=== PATIENT | male | born 1950 | race Caucasian/White ===

== ENCOUNTER 2016-08-06 10:48 | Emergency (ER) | payer BC, OTHER ==
[~2016-08-06] VITALS: Ht 182.9 cm; Wt 123.6 kg
[~2016-08-06 10:48] MED LIST: ACT15 PO; ASPEC325 PO; EZET10TA63 PO; GLC500 PO; GLIP-197 PO; IBUP-103 PO; IBUP200C9 PO; LOSA25TA18 PO; NIAC500T11 PO
[2016-08-06 11:01] VITALS: TEMP 36.9; Ht 182.9 cm; Wt 123.6 kg
[2016-08-06] MEDS ORDERED: GLIP-199 PO (11:21)
[2016-08-06] MEDS ORDERED: ACETAMINOPHEN 500 MG TAB PO STA (11:59)
[2016-08-06] MEDS ORDERED: ALBUT/IPRATROP 3MG/0.5MG NEB 3 ML VIAL INH STA (11:59)
[2016-08-06] MEDS ORDERED: SODIUM CHLORIDE 0.9% 1000ML 500 ML IV STA (11:59)
[2016-08-06 12:18] LABS: BASO % 0.3 %; BASO ABS # 0.02 K/uL (0-0.2); COMPLETE YES; EOS % 2.1 %; HEMATOCRIT 46.2 % (42-52); IG% 0.4 %; LYMPH % 11.3 %; LYMPH ABS # 0.87 K/uL (1.2-3.4); MEAN CELL VOLUME 95.9 fL (80-100); MEAN CORPUSCULAR HGB CONC 34.4 g/dl (32-36); MEAN PLATELET VOLUME 11.1 fL (7.4-10.4); MONO % 8.7 %; NEUT % 77.2 %; PLATELET COUNT 106 K/uL (130-400); RED BLOOD COUNT 4.82 M/uL (4.7-6.1); WHITE BLOOD COUNT 7.73 K/uL (4.8-10.8)
--- NOTE | 2016-08-06 12:27 | DIAGNOSTIC IMAGING REPORT ---
SINGLE VIEW CHEST CLINICAL HISTORY: Atypical chest pain. FINDINGS: An AP, portable, upright chest radiograph is compared to study dated 10/21/2015. The examination is degraded by portable technique, apical lordotic positioning, and large body habitus. The heart is enlarged. The pulmonary vascular structures noncongested. There is minimal bibasilar atelectasis. No airspace consolidation or pleural effusion is identified. No pneumothorax is seen. The bony thorax is grossly intact. IMPRESSION: Cardiac enlargement with no active disease in the chest. Electronically signed by: Felice Arriaga M.D. 08/06/2016 12:25 PM Dictated Date/Time: 08/06/2016 12:24 PM
[2016-08-06 12:36] LABS: ALT/SGPT 43 U/L (12-78); BLOOD UREA NITROGEN 12 mg/dl (7-18); BUN/CREATININE RATIO 9.6 (10-20); CALCIUM 9.2 mg/dl (8.5-10.1); CARBON DIOXIDE 24 mmol/L (21-32); CHLORIDE 104 mmol/L (98-107); GLUCOSE 211 mg/dl (70-99); POTASSIUM 4.4 mmol/L (3.5-5.1); SODIUM 139 mmol/L (136-145)
[2016-08-06 12:41] LABS: ALB/GLOB RATIO 1.2 (0.9-2); ALKALINE PHOSPHATASE 80 U/L (45-117); AST/SGOT 30 U/L (15-37)
[2016-08-06] MEDS ORDERED: ALBUTEROL HFA 8 GM INHALER INH ONE (13:15)
[2016-08-06] MEDS ORDERED: OXYC1TAB3 PO (13:32)
[2016-08-06] MEDS ORDERED: VNTHFA/IN INH (13:32)
[2016-08-06] MEDS ORDERED: BENZ100C18 PO (13:32)
[2016-08-06 13:44] VITALS: BP 140/74; PULSE 74; O2SAT 94
--- NOTE | 2016-08-06 16:40 | EMERGENCY ROOM VISIT NOTE ---
History Report prepared by Kiana: Mavis Modi Under the Supervision of: Dr. Felice Lopez M.D. First contact with patient: 11:54 Chief Complaint: COUGH Stated Complaint: LUNG INFECTION, MUSCLE CONSTRICTION Nursing Triage Summary: pt reports cough ,congestion and sob when coughin X 4 days , reports " I cough so much and so hard I passed out , and awoke on BR floor " pain in L chest and L ribs skin tear to L hand History of Present Illness The patient is a 65 year old male who presents to the Emergency Room with complaints of a worsening productive cough over the past 4 days. When coughing, he experiences pain to his midchest, which reaches a 10/10 on the pain scale. He has been taking NyQuil and Motrin without relief. Patient states that he woke up on the bathroom floor this morning as he believes he passed out after experiencing a coughing fit. He did notice a painful contusion to his lower left back as he states that he hit on a stair as he fell to the ground when he lost consciousness, but he denies hitting his head or suffering other injuries during the episode. Since benito the cough 4 days ago, patient states that he has been bringing up a thick, green mucous. He also states that he has felt short of breath, as well as pain to his mid-chest, radiating around his left side, but he denies becoming nauseous or diaphoretic, and he thinks that this may be secondary to pulling a muscle during a coughing fit. Patient notes that he has been having to sleep propped up in his recliner chair to sleep at night, as he has noticed increased frequency of his cough when attempting to lay flat. He denies recent fevers, chills, abdominal pain, vomiting, diarrhea or urinary symptoms. Patient is currently a smoker (cigars). He denies past history of asthma, bronchitis, or COPD. Source of History: patient Onset: over the past 4 days Position: chest Symptom Intensity: 10/10 Quality: other (cough) Timing: worsening Modifying Factors (Worsening): other (coughing) Modifying Factors (Relieving): other (propping himself upright) Associated Symptoms: + LOC, + SOB, + back pain (lower left), + chest pain, No chills, No diaphoresis, No diarrhea, No fevers, No nausea, No urinary symptoms, No vomiting Review of Systems See HPI for pertinent positives & negatives. A total of 10 systems reviewed and were otherwise negative. Past Medical & Surgical Medical Problems: (1) Lower back pain (2) Right Knee DJD Surgical Problems: (1) Rotator cuff tear, right Family History Diabetes mellitus Social History Smoking Status: Current Every Day Smoker Marital Status: Housing Status: lives with significant other Occupation Status: retired Current/Historical Medications Scheduled Albuterol Hfa (Ventolin Hfa), 3 PUFFS INH Q4H Aspirin (Aspirin), 325 MG PO BID Ezetimibe (Zetia), 10 MG PO QAM Glipizide (Glipizide Er), 10 MG PO DAILY Losartan Potassium (Cozaar), 25 MG PO QAM Metformin Hcl (Glucophage *), 500 MG PO QAM Niacin (Niacin), 500 MG PO QAM Pioglitazone (Actos *), 45 MG PO QAM Scheduled PRN Benzonatate (Tessalon Perles), 1 CAP PO TID PRN for Cough Oxycodone Ir (Roxicodone Ir), 1 TAB PO Q4H PRN for Pain Allergies Coded Allergies: VANDA Inhibitors (Verified Allergy, Unknown, reaction unknown, 08/06/16) Celecoxib (Verified Allergy, Unknown, pruritis, 08/06/16) Diclofenac (Verified Allergy, Unknown, unknown reaction, 08/06/16) Statins (Verified Adverse Reaction, Unknown, myalgias, 08/06/16) Physical Exam Vital Signs Date Time Temp Pulse Resp B/P Pulse Ox O2 Delivery O2 Flow Rate FiO2 08/06/16 13:44 74 20 140/74 94 08/06/16 12:55 79 18 138/76 93 Room Air 08/06/16 11:01 36.9 90 18 164/91 94 Room Air Physical Exam GENERAL: Patient is in no acute distress. HEENT: No acute trauma, normocephalic atraumatic, mucous membranes moist, no nasal congestion, no scleral icterus. NECK: No stridor, no adenopathy, no meningismus, trachea is midline. LUNGS: Diminished breath sounds, bilaterally. Breath sounds are equal. No rhonchi. Wheezing heard bilaterally. HEART: Without murmurs gallops or rubs, regular rate and rhythm. CHEST: Tender over the left chest wall and midsternum. ABDOMEN: Soft, nontender, bowel sounds positive, no hernias, no peritonitis. EXTREMITIES: No cyanosis or edema, full range of motion of all the joints without pain or difficulty, no signs for acute trauma. NEUROLOGIC: Oriented x 3, no acute motor or sensory deficits, no focal weakness. SKIN: No rash, no jaundice, no diaphoresis. Medical Decision & Procedures ER Provider Diagnostic Interpretation: X-ray results as stated below per interpretation by me and the radiologist: SINGLE VIEW CHEST CLINICAL HISTORY: Atypical chest pain. FINDINGS: An AP, portable, upright chest radiograph is compared to study dated 10/21/2015. The examination is degraded by portable technique, apical lordotic positioning, and large body habitus. The heart is enlarged. The pulmonary vascular structures noncongested. There is minimal bibasilar atelectasis. No airspace consolidation or pleural effusion is identified. No pneumothorax is seen. The bony thorax is grossly intact. IMPRESSION: Cardiac enlargement with no active disease in the chest. Electronically signed by: Felice Arriaga M.D. 08/06/2016 12:25 PM Dictated Date/Time: 08/06/2016 12:24 PM Laboratory Results 08/06/16 12:05 Red Blood Count 4.82, Mean Corpuscular Volume 95.9, Mean Corpuscular Hemoglobin 33.0, Mean Corpuscular Hemoglobin Concent 34.4, Mean Platelet Volume 11.1, Neutrophils (%) (Auto) 77.2, Lymphocytes (%) (Auto) 11.3, Monocytes (%) (Auto) 8.7, Eosinophils (%) (Auto) 2.1, Basophils (%) (Auto) 0.3, Neutrophils # (Auto) 5.98, Lymphocytes # (Auto) 0.87, Monocytes # (Auto) 0.67, Eosinophils # (Auto) 0.16, Basophils # (Auto) 0.02 08/06/16 12:05 Test 08/06/16 12:05 White Blood Count 7.73 K/uL (4.8-10.8) Red Blood Count 4.82 M/uL (4.7-6.1) Hemoglobin 15.9 g/dL (14.0-18.0) Hematocrit 46.2 % (42-52) Mean Corpuscular Volume 95.9 fL (80-100) Mean Corpuscular Hemoglobin 33.0 pg (25-34) Mean Corpuscular Hemoglobin Concent 34.4 g/dl (32-36) Platelet Count 106 K/uL (130-400) Mean Platelet Volume 11.1 fL (7.4-10.4) Neutrophils (%) (Auto) 77.2 % Lymphocytes (%) (Auto) 11.3 % Monocytes (%) (Auto) 8.7 % Eosinophils (%) (Auto) 2.1 % Basophils (%) (Auto) 0.3 % Neutrophils # (Auto) 5.98 K/uL (1.4-6.5) Lymphocytes # (Auto) 0.87 K/uL (1.2-3.4) Monocytes # (Auto) 0.67 K/uL (0.11-0.59) Eosinophils # (Auto) 0.16 K/uL (0-0.5) Basophils # (Auto) 0.02 K/uL (0-0.2) RDW Standard Deviation 47.1 fL (36.4-46.3) RDW Coefficient of Variation 13.5 % (11.5-14.5) Immature Granulocyte % (Auto) 0.4 % Immature Granulocyte # (Auto) 0.03 K/uL (0.00-0.02) Anion Gap 11.0 mmol/L (3-11) Est Creatinine Clear Calc Drug Dose 83.3 ml/min Estimated GFR () 73.1 Estimated GFR (Non- 63.1 BUN/Creatinine Ratio 9.6 (10-20) Calcium Level 9.2 mg/dl (8.5-10.1) Total Bilirubin 0.9 mg/dl (0.2-1) Aspartate Amino Transf (AST/SGOT) 30 U/L (15-37) Alanine Aminotransferase (ALT/SGPT) 43 U/L (12-78) Alkaline Phosphatase 80 U/L (45-117) Troponin I < 0.015 ng/ml (0-0.045) Total Protein 7.1 gm/dl (6.4-8.2) Albumin 3.9 gm/dl (3.4-5.0) Globulin 3.2 gm/dl (2.5-4.0) Albumin/Globulin Ratio 1.2 (0.9-2) Laboratory results reviewed by me. Medications Administered Medications (Trade) Dose Ordered Sig/Ashwin Route Start Time Stop Time Status Last Admin Dose Admin Sodium Chloride (Nss 1000ml) 500 ml @ 999 mls/hr Q31M STAT IV 08/06/16 11:59 08/06/16 12:29 DC 08/06/16 11:59 999 MLS/HR Albuterol/ Ipratropium (Duoneb) 3 ml NOW STAT INH 08/06/16 11:59 08/06/16 12:03 DC 08/06/16 12:13 3 ML Acetaminophen (Tylenol Tab) 1,000 mg NOW STAT PO 08/06/16 11:59 08/06/16 12:03 DC 08/06/16 12:13 1,000 MG Albuterol (Ventolin Hfa Inhaler) 2 puffs NOW ONCE INH 08/06/16 13:15 08/06/16 13:16 DC 08/06/16 13:15 2 PUFFS ECG Indication: chest pain Rate (beats per minute): 78 Rhythm: sinus rhythm Findings: no acute ischemic change, no ectopy ED Course 1155: The patient was evaluated in room C7. A complete history and physical exam was performed. 1159: Tylenol tab 1,000 mg PO, DuoNeb 3 ml INH and NSS 500 ml @ 999 mls/hr IV were ordered. 1315: Upon reevaluation, the patient was doing well, but was still having respiratory difficulties. Albuterol 2 puffs INH was ordered. I updated him on the results of his radiology reports and lab tests. 1325: Additional discharge instructions were also discussed at this time. The patient verbalized his understanding and agreement with the treatment plan, and he is now ready for disposition. Medical Decision The patient is a 65 year old male who presents to the ED with complaints of a worsening cough over the past 4 days. Differential diagnoses considered include bronchitis, pneumonia, pneumomediastinum, pneumothorax, CHF, COPD and musculoskeletal pain. There is no leukocytosis or worrisome anemia. No significant electrolyte abnormality, kidney failure or hepatitis. EKG shows a sinus rhythm, no acute ischemia. Cardiac enzyme testing 1 is not suggestive of acute cardiac injury. Chest x-ray does not show pneumonia, pneumothorax or mediastinal widening. The patient received IV saline, a DuoNeb, oral Tylenol. He was given albuterol via MDI. The patient has acute bronchitis with musculoskeletal chest pain. Antibiotics are not indicated. This issue is likely viral. The patient is being discharged on albuterol, oxycodone for pain. Heat to the chest wall was suggested. Patient was encouraged to follow with his doctors office and to return here for worsening symptoms. [place] Drug Monitoring Program Search Results: patient reviewed within database, no issues identified Impression Primary Impression: Acute bronchitis Additional Impression: Left sided chest pain Scribe Attestation The scribe's documentation has been prepared under my direction and personally reviewed by me in its entirety. I confirm that the note above accurately reflects all work, treatment, procedures, and medical decision making performed by me. Departure Information Dispostion Home / Self-Care Prescriptions Oxycodone Ir (Roxicodone Ir) 5 Mg Tab 1 TAB PO Q4H Y for Pain, #12 TAB Prov: Felice Lopez M.D. 08/06/16 Benzonatate (TESSALON PERLES) 100 Mg Cap 1 CAP PO TID Y for Cough for 10 Days, #30 CAP Prov: Felice Lopez M.D. 08/06/16 Albuterol Hfa (VENTOLIN HFA) 200 Puffs/88528 Mcg Aers 3 PUFFS INH Q4H, #1 INHALER Prov: Felice Lopez M.D. 08/06/16 Referrals Lakhwinder Palomino M.D. (PCP) Forms HOME CARE DOCUMENTATION FORM, IMPORTANT VISIT INFORMATION Patient Instructions My [facility] Additional Instructions tessalon perles for cough as directed albuterol 3 puffs every 4 hours heat to the chest wall may help oxy ir 1 tab as needed every 4 hours for severe pain return for worsening breathing or worsening symptoms chest film and heart testing today was ok Problem Qualifiers
== END 2016-08-06 13:45 | disposition home or self-care (01) ==
LOC: C.EDB 10:50 → C.EDC 13:45
DX: J20.9 Acute bronchitis, unspecified (principal); R07.89 Other chest pain; F17.210 Nicotine dependence, cigarettes, uncomplicated; Z79.899 Other long term (current) drug therapy; Z79.82 Long term (current) use of aspirin; Z83.3 Family history of diabetes mellitus

== ENCOUNTER → 2016-08-09 | Outpatient (CLI) | payer BC ==
[~2016-08-09] MED LIST changes: +BENZ100C18 PO; -GLIP-197 PO; +GLIP-199 PO; -IBUP-103 PO; -IBUP200C9 PO; +OXYC1TAB3 PO; +VNTHFA/IN INH
--- NOTE | 2016-08-09 09:17 | DIAGNOSTIC IMAGING REPORT ---
LEFT RIBS UNILATERAL WITH PA CHEST CLINICAL HISTORY: Left rib pain. Cough. COMPARISON STUDY: Chest x-ray dated 08/06/2016 FINDINGS: The heart is mildly enlarged. No pneumothorax is visualized. There is minor left basilar atelectasis. No left-sided rib fractures are visualized. IMPRESSION: No evidence of pneumothorax. No left-sided rib fractures are visualized. Electronically signed by: Reza Chan M.D. 08/09/2016 9:15 AM Dictated Date/Time: 08/09/2016 9:13 AM
== END | disposition home or self-care (01) ==
LOC: C.RAD1850 08:29
PROVIDERS: ATTEND Internal Medicine
DX: R07.81 Pleurodynia (principal)

== ENCOUNTER → 2016-11-23 | Outpatient (CLI) | payer BC ==
[~2016-11-23] MED LIST changes: -BENZ100C18 PO; +GLC/500 PO; +PIOG1TAB20 PO; +SITA100T3 PO
[2016-11-23 12:30] LABS: BASO % 0.2 %; BASO ABS # 0.01 K/uL (0-0.2); COMPLETE YES; EOS % 5.3 %; HEMATOCRIT 49.3 % (42-52); IG% 0.4 %; LYMPH % 17.9 %; LYMPH ABS # 1.02 K/uL (1.2-3.4); MEAN CELL VOLUME 96.9 fL (80-100); MEAN CORPUSCULAR HEMOGLOBIN 32.4 pg (25-34); MEAN CORPUSCULAR HGB CONC 33.5 g/dl (32-36); MEAN PLATELET VOLUME 11.5 fL (7.4-10.4); MONO % 8.4 %; NEUT % 67.8 %; PLATELET COUNT 120 K/uL (130-400); RED BLOOD COUNT 5.09 M/uL (4.7-6.1); WHITE BLOOD COUNT 5.69 K/uL (4.8-10.8)
[2016-11-23 12:54] LABS: ALT/SGPT 39 U/L (12-78); BLOOD UREA NITROGEN 13 mg/dl (7-18); BUN/CREATININE RATIO 11.7 (10-20); CALCIUM 9.6 mg/dl (8.5-10.1); CARBON DIOXIDE 30 mmol/L (21-32); CHLORIDE 102 mmol/L (98-107); CHOLESTEROL 193 mg/dl (0-200); GLUCOSE 202 mg/dl (70-99); POTASSIUM 4.8 mmol/L (3.5-5.1); SODIUM 137 mmol/L (136-145); TRIGLYCERIDES 114 mg/dl (0-150); VERY LOW DENSITY LIPOPROT CALC 23 mg/dl
[2016-11-23 13:05] LABS: ALB/GLOB RATIO 1.3 (0.9-2); ALKALINE PHOSPHATASE 106 U/L (45-117); AST/SGOT 20 U/L (15-37); CHOLESTEROL/HDL RATIO 3.6; HDL CHOLESTEROL 54 mg/dl; LDL CHOLESTEROL CALCULATED 116 mg/dl; THYROID STIMULATING HORMONE 0.621 uIu/ml (0.300-4.500)
[2016-11-23 13:11] LABS: ESTIMATED AVERAGE GLUCOSE 197 mg/dl; HA1C FLAG Normal (Normal)
[2016-11-23 13:12] LABS: RATIO 18.1 mcg/mg (0-30.0)
== END | disposition home or self-care (01) ==
LOC: C.LABBFT 09:51
PROVIDERS: ATTEND Internal Medicine
DX: E11.29 Type 2 diabetes mellitus with other diabetic kidney complication (principal); D69.6 Thrombocytopenia, unspecified

== ENCOUNTER → 2016-11-30 | Outpatient (CLI) | payer BC ==
[~2016-11-30] MED LIST changes: +OPTIRAY 320 IV PRN
--- NOTE | 2016-11-30 12:14 | DIAGNOSTIC IMAGING REPORT ---
CT OF THE CHEST WITH IV CONTRAST CLINICAL HISTORY: Persistent cough. Anterior left-sided rib pain. COMPARISON STUDY: Chest radiograph December or 2016. TECHNIQUE: Following IV administration of 120 mL of Optiray-320, helical axial images of the chest were obtained. Images were viewed in the axial, sagittal and coronal planes. IV contrast was administered without complication. CT DOSE: 926.33 mGy.cm FINDINGS: The heart is mildly enlarged. There is no pericardial effusion. No enlarged thoracic lymph nodes are present. There is no pneumothorax. There is healing fractures of the posterior left sixth and seventh ribs with callus formation. There is an acute to subacute minimally displaced fracture of the posterior left eighth rib with minimal callus formation. There is a small left pleural effusion. Left lower lobe opacity favors atelectasis. Visualized portions the upper abdomen demonstrate gallstones within the gallbladder. IMPRESSION: 1. Minimally displaced subacute fracture of the posterior left eighth rib with subacute to chronic healing fractures of the posterior left sixth and seventh ribs. No pneumothorax. Trace left pleural effusion. 2. Lingular and left lower lobe opacity consistent with atelectasis. 3. Cholelithiasis. Electronically signed by: Don Kidd M.D. 11/30/2016 12:13 PM Dictated Date/Time: 11/30/2016 11:54 AM
== END | disposition home or self-care (01) ==
LOC: C.CTS 11:02
PROVIDERS: ATTEND Physician Assistant Medical
DX: R05 Cough (principal)

== ENCOUNTER → 2017-04-05 | Outpatient (CLI) | payer BC ==
[~2017-04-05] MED LIST changes: -GLC/500 PO; -OPTIRAY 320 IV PRN; -OXYC1TAB3 PO; -PIOG1TAB20 PO; -SITA100T3 PO; -VNTHFA/IN INH
[2017-04-05 12:20] LABS: HEMATOCRIT 51.6 % (42-52); MEAN CELL VOLUME 98.7 fL (80-100); MEAN CORPUSCULAR HEMOGLOBIN 32.5 pg (25-34); MEAN CORPUSCULAR HGB CONC 32.9 g/dl (32-36); MEAN PLATELET VOLUME 11.7 fL (7.4-10.4); PLATELET COUNT 113 K/uL (130-400); RED BLOOD COUNT 5.23 M/uL (4.7-6.1); WHITE BLOOD COUNT 5.99 K/uL (4.8-10.8)
[2017-04-05 13:07] LABS: ALT/SGPT 42 U/L (12-78); BLOOD UREA NITROGEN 14 mg/dl (7-18); BUN/CREATININE RATIO 12.5 (10-20); CALCIUM 9.5 mg/dl (8.5-10.1); CARBON DIOXIDE 28 mmol/L (21-32); CHLORIDE 105 mmol/L (98-107); CHOLESTEROL 207 mg/dl (0-200); GLUCOSE 219 mg/dl (70-99); POTASSIUM 4.9 mmol/L (3.5-5.1); SODIUM 138 mmol/L (136-145); TRIGLYCERIDES 115 mg/dl (0-150); VERY LOW DENSITY LIPOPROT CALC 23 mg/dl
[2017-04-05 13:10] LABS: ALB/GLOB RATIO 1.2 (0.9-2); ALKALINE PHOSPHATASE 95 U/L (45-117); AST/SGOT 20 U/L (15-37); CHOLESTEROL/HDL RATIO 3.8; HDL CHOLESTEROL 55 mg/dl; LDL CHOLESTEROL CALCULATED 129 mg/dl
[2017-04-05 13:22] LABS: ESTIMATED AVERAGE GLUCOSE 192 mg/dl; HA1C FLAG Normal (Normal)
== END | disposition home or self-care (01) ==
LOC: C.LABPVFM 07:30
PROVIDERS: ATTEND Physician Assistant Medical
DX: E78.00 Pure hypercholesterolemia, unspecified (principal); E11.29 Type 2 diabetes mellitus with other diabetic kidney complication

== ENCOUNTER 2017-06-12 07:41 | Emergency (ER) | payer BC ==
[~2017-06-12] VITALS: Ht 182.9 cm; Wt 118.7 kg
[2017-06-12 07:42] VITALS: TEMP 36.8; Ht 182.9 cm; Wt 118.7 kg
--- NOTE | 2017-06-12 07:44 | EMERGENCY ROOM VISIT NOTE ---
ED Visit Note I have seen and examined this patient with Janel Puri and generally agree with the treatment plan as discussed. Current/Historical Medications Scheduled Aspirin (Aspirin), 325 MG PO BID Ezetimibe (Zetia), 10 MG PO QAM Glipizide (Glipizide Er), 10 MG PO DAILY Losartan Potassium (Cozaar), 25 MG PO QAM Metformin Hcl (Glucophage *), 500 MG PO QAM Niacin (Niacin), 500 MG PO QAM Pioglitazone (Actos *), 45 MG PO QAM Allergies Coded Allergies: VANDA Inhibitors (Verified Allergy, Unknown, reaction unknown, 08/06/16) Celecoxib (Verified Allergy, Unknown, pruritis, 08/06/16) Diclofenac (Verified Allergy, Unknown, unknown reaction, 08/06/16) Statins (Verified Adverse Reaction, Unknown, myalgias, 08/06/16) Departure Information Referrals Lakhwinder Palomino M.D. (PCP) Patient Instructions My [facility]
[2017-06-12] MEDS ORDERED: ONDANSETRON INJ 2 MG/ML 2 ML VIAL IV STA (07:56)
[2017-06-12] MEDS ORDERED: MoRPHine SULFATE 4 MG/ML 1 ML CARP\\VIAL IV STA (07:56)
[2017-06-12 08:00] VITALS: O2SAT 98
--- NOTE | 2017-06-12 08:01 | EMERGENCY ROOM VISIT NOTE ---
History First contact with patient: 07:44 Chief Complaint: FLANK PAIN Stated Complaint: GALLBLADDER ATTACK,PAIN R SIDE,VOMITING History of Present Illness The patient is a 66 year old male who presents to the Emergency Room with complaints of right-sided back pain that started 3 days ago. He states the pain came on gradually and has become progressively worse, began in his right lower back, has moved up towards his right shoulder, constant and severe, describes as a sharp stabbing pain, 9/10. He states he has taken Tylenol and Motrin for the pain, this initially seemed to help his pain, but now it is not touching the pain. He has associated nausea and vomited once this morning, chills, and states he feels short of breath. Patient states that he had imaging done for broken ribs in the past, and was told that he had gallstones, he thinks this may be a gallbladder attack, although he notes he has never had any gallbladder issues in the past. Past medical history significant for diabetes on oral medications, hypertension, hyperlipidemia, and states he smokes 4-5 cigars a day. He denies any headache, neck pain, dizziness or syncope, chest pain, diarrhea or constipation, stool changes, hematuria or dysuria, or rash. He denies any recent lifting or twisting motions to his back. Review of Systems A complete 10 point review of systems was reviewed with the patient with pertinent positives and negatives as per history of present illness. All else were negative. Past Medical/Surgical History Medical Problems: (1) Lower back pain (2) Right Knee DJD Surgical Problems: (1) Rotator cuff tear, right Family History Diabetes mellitus Social History Smoking Status: Current Every Day Smoker Marital Status: Housing Status: lives with significant other Occupation Status: retired Current/Historical Medications Scheduled Ezetimibe (Zetia), 10 MG PO QAM Glipizide (Glipizide Er), 10 MG PO DAILY Losartan Potassium (Cozaar), 25 MG PO QAM Metformin Hcl (Glucophage), 500 MG PO DAILY Niacin (Niacin), 500 MG PO QAM Pioglitazone Hcl (Pioglitazone Hcl), 45 MG PO QAM Sitagliptin Phosphate (Januvia), 100 MG PO DAILY Allergies Reviewed in chart Physical Exam Vital Signs Date Time Temp Pulse Resp B/P (MAP) Pulse Ox O2 Delivery O2 Flow Rate FiO2 11/22/17 11:50 66 18 191/91 98 Room Air 06/12/17 09:56 68 18 152/80 94 Room Air 06/12/17 09:46 66 17 161/90 98 Room Air 06/12/17 09:15 69 18 168/86 96 Room Air 06/12/17 09:01 69 16 166/88 94 Room Air 06/12/17 08:50 66 18 162/87 96 Room Air 06/12/17 08:33 65 16 190/90 96 Room Air 06/12/17 08:06 67 18 199/95 97 Room Air 06/12/17 08:00 98 Room Air 06/12/17 08:00 98 Room Air 06/12/17 07:55 67 06/12/17 07:42 36.8 68 20 187/97 96 Room Air Physical Exam CONSTITUTIONAL: No acute distress, but does appear uncomfortable and in pain. Well appearing and well nourished. Alert and oriented X 4 with normal affect. HEENT: Normocephalic, atraumatic. Pupils equal, round and reactive to light, EOMI. TMs normal. Pharynx normal. NECK: Supple, full active range of motion without discomfort. RESPIRATORY: Diminished bilaterally, scant expiratory wheezing heard anteriorly , no crackles, rhonchi or stridor. Equal expansion bilaterally. CARDIOVASCULAR: Regular rate and rhythm with no murmurs, rubs or gallops. Normal peripheral perfusion all four extremities. No edema. CHEST WALL: No tenderness to palpation, no ecchymosis or abrasions, no crepitus palpated. GASTROINTESTINAL: Mildly tender in the right flank area. No rebound tenderness , no guarding. Negative Diaz's sign. No CVA tenderness bilaterally. Soft, nondistended, obese. Bowel sounds present in all quadrants. MUSCULOSKELETAL: Full range of motion of all joints without discomfort. No calf tenderness or swelling noted. INTEGUMENTARY: No rash or other significant dermatologic conditions noted. NEUROLOGIC: Cranial nerves II-XII grossly intact. No focal neurologic deficits noted. Normal strength and sensation in all 4 extremities, normal speech, normal gait. Medical Decision & Procedures ER Provider Diagnostic Interpretation: CHEST 2 VIEWS ROUTINE CLINICAL HISTORY: CHEST PAIN dyspnea COMPARISON STUDY: 08/06/2016 FINDINGS: Interval development of a patchy parenchymal infiltrate left midlung and left base. Slight blunting left lateral costophrenic angle. Right lung is considered clear. IMPRESSION: Interval development of left midlung and left basilar infiltrative change. Trace pleural fluid versus reactive change left lateral costophrenic angle ----- CT CHEST COMBO ANGIO DISSECTION CLINICAL HISTORY: Chest and abdominal pain. Suspected dissection. COMPARISON STUDY: Chest CT dated 11/30/2016 A dose reduction technique was utilized according to the principles of ALARA FINDINGS: Unenhanced images were obtained through the thorax. There is no evidence of aortic hematoma. Patient was then scanned in a dynamic helical fashion during intravenous administration 115 cc of Optiray 320. MIP imaging was performed. No thyroid masses are visualized. There is no pathologic adenopathy. There are no pulmonary artery filling defects to indicate acute pulmonary embolism. The ascending thoracic aorta measures 35 mm. There is no evidence of aortic dissection. There are multiple old left-sided rib fractures. There is a small left pleural effusion. There are left lower lobe atelectatic changes. There is evidence of cholelithiasis. There are stable sebaceous cysts within the back. IMPRESSION: 1. No evidence of thoracic aortic aneurysm or dissection 2. Old left-sided rib fractures. 3. Small left pleural effusion with left lower lobe atelectasis 4. Cholelithiasis ----- ANGIO ABD/PELVIS WITH CONTRAST CLINICAL HISTORY: Chest pain. Dyspnea. TECHNIQUE: Transaxial acquisition pre and post contrast administration. Three-dimensional evaluation. COMPARISON STUDY: None FINDINGS: Mild pleural reactive change combined with a small effusion left lung base. Low thoracic aorta is unremarkable. Abdominal aorta as well as iliac vasculature confirms presence of mild to moderate atherosclerotic change. Origins of the renal arteries as well as the celiac axis and superior mesenteric artery appear unremarkable. Liver spleen and pancreas are unremarkable. Kidneys negative for hydronephrosis. Bowel pattern is nonobstructive. IMPRESSION: Mild atherosclerotic change. No evidence for aneurysm or dissection. ----- BILIARY ULTRASOUND CLINICAL HISTORY: Right upper quadrant abdominal pain. Possible cholecystitis. COMPARISON STUDY: 04/30/2006, CT scan dated 06/12/2017 FINDINGS: There is suboptimal visualization of the pancreas. There is cholelithiasis. There is no gallbladder wall thickening. There is no pericholecystic fluid. There is no ductal dilatation. The common bile duct measures 6 mm. There is no right-sided hydronephrosis. No hepatic masses are visualized. The liver is of increased echogenicity suggesting hepatic steatosis. IMPRESSION: 1. Cholelithiasis. No evidence of gallbladder wall thickening. No evidence of ductal dilatation 2. Suspected hepatic steatosis 3. Nondiagnostic evaluation of the pancreas Laboratory Results 06/12/17 07:50 Red Blood Count 5.14, Mean Corpuscular Volume 96.5, Mean Corpuscular Hemoglobin 32.9, Mean Corpuscular Hemoglobin Concent 34.1, Mean Platelet Volume 10.8, Neutrophils (%) (Auto) 80.1, Lymphocytes (%) (Auto) 10.1, Monocytes (%) (Auto) 7.0, Eosinophils (%) (Auto) 2.3, Basophils (%) (Auto) 0.1, Neutrophils # (Auto) 5.48, Lymphocytes # (Auto) 0.69, Monocytes # (Auto) 0.48, Eosinophils # (Auto) 0.16, Basophils # (Auto) 0.01 06/12/17 07:50 Test 06/12/17 07:50 06/12/17 08:00 White Blood Count 6.85 K/uL (4.8-10.8) Red Blood Count 5.14 M/uL (4.7-6.1) Hemoglobin 16.9 g/dL (14.0-18.0) Hematocrit 49.6 % (42-52) Mean Corpuscular Volume 96.5 fL (80-100) Mean Corpuscular Hemoglobin 32.9 pg (25-34) Mean Corpuscular Hemoglobin Concent 34.1 g/dl (32-36) Platelet Count 98 K/uL (130-400) Mean Platelet Volume 10.8 fL (7.4-10.4) Neutrophils (%) (Auto) 80.1 % Lymphocytes (%) (Auto) 10.1 % Monocytes (%) (Auto) 7.0 % Eosinophils (%) (Auto) 2.3 % Basophils (%) (Auto) 0.1 % Neutrophils # (Auto) 5.48 K/uL (1.4-6.5) Lymphocytes # (Auto) 0.69 K/uL (1.2-3.4) Monocytes # (Auto) 0.48 K/uL (0.11-0.59) Eosinophils # (Auto) 0.16 K/uL (0-0.5) Basophils # (Auto) 0.01 K/uL (0-0.2) RDW Standard Deviation 50.1 fL (36.4-46.3) RDW Coefficient of Variation 14.0 % (11.5-14.5) Immature Granulocyte % (Auto) 0.4 % Immature Granulocyte # (Auto) 0.03 K/uL (0.00-0.02) D-Dimer 800 ug/L FEU (0-500) Anion Gap 6.0 mmol/L (3-11) Est Creatinine Clear Calc Drug Dose 93.8 ml/min Estimated GFR () 87.3 Estimated GFR (Non- 75.3 BUN/Creatinine Ratio 8.5 (10-20) Calcium Level 9.6 mg/dl (8.5-10.1) Total Bilirubin 0.7 mg/dl (0.2-1) Direct Bilirubin 0.2 mg/dl (0-0.2) Aspartate Amino Transf (AST/SGOT) 18 U/L (15-37) Alanine Aminotransferase (ALT/SGPT) 36 U/L (12-78) Alkaline Phosphatase 91 U/L (45-117) Total Creatine Kinase 94 U/L (39-308) Creatine Kinase MB 1.1 ng/ml (0.5-3.6) Creatine Kinase MB Ratio 1.2 (0-3.0) Troponin I < 0.015 ng/ml (0-0.045) Total Protein 7.3 gm/dl (6.4-8.2) Albumin 4.0 gm/dl (3.4-5.0) Lipase 429 U/L (73-393) Urine Color YELLOW Urine Appearance CLEAR (CLEAR) Urine pH 5.0 (4.5-7.5) Urine Specific [place] 1.035 (1.000-1.030) Urine Protein 1+ (NEG) Urine Glucose (UA) 3+ (NEG) Urine Ketones 1+ (NEG) Urine Occult Blood 1+ (NEG) Urine Nitrite NEG (NEG) Urine Bilirubin NEG (NEG) Urine Urobilinogen NEG (NEG) Urine Leukocyte Esterase NEG (NEG) Urine WBC (Auto) 0 /hpf (0-5) Urine RBC (Auto) 5-10 /hpf (0-4) Urine Hyaline Casts (Auto) 1-5 /lpf (0-5) Urine Epithelial Cells (Auto) 5-10 /lpf (0-5) Urine Bacteria (Auto) NEG (NEG) Medications Administered Medications (Trade) Dose Ordered Sig/Ashwin Route Start Time Stop Time Status Last Admin Dose Admin Ondansetron HCl (Zofran Inj) 4 mg NOW STAT IV 06/12/17 07:56 06/12/17 08:01 DC 06/12/17 08:05 4 MG Morphine Sulfate (MoRPHine SULFATE INJ) 4 mg NOW STAT IV 06/12/17 07:56 06/12/17 08:01 DC 06/12/17 08:06 4 MG Hydralazine HCl (HydrALAZINE INJ) 10 mg NOW STAT IV. 06/12/17 08:31 06/12/17 08:33 DC 06/12/17 08:57 10 MG Losartan Potassium (coZAAR TAB) 25 mg NOW STAT PO 06/12/17 09:34 06/12/17 09:36 DC 06/12/17 09:57 25 MG ECG Indication: abdominal pain, back/shoulder pain Rate (beats per minute): 64 Rhythm: normal sinus Findings: no acute ischemic change, no ectopy Change: no significant change (compared to EKG from 08/06/2016) Medical Decision CC: Patient presenting with complaint of right flank/back pain Interpretation of Labs: No leukocytosis, no anemia, hyperglycemia, no other significant electrolyte abnormalities, normal renal function, normal liver enzymes, mildly elevated lipase. Elevated d-dimer. UA positive for blood, ketones and specific gravity consistent with mild dehydration, no infection. Differential Diagnosis: Includes, but not limited to acute coronary syndrome, PE , aortic dissection, AAA, pneumonia, cholecystitis, cholelithiasis, pancreatitis , gastritis, gastroenteritis, ureteral stone, UTI, pyelonephritis, costochondritis, musculoskeletal sprain/strain, among others. Medication Reconciliation: I attest that I have personally reviewed the patient' s current medication list. Vital signs review: I reviewed the patient's vital signs and interpret them as follows: T: Afebrile; BP: Hypertensive; HR: Within normal limits; RR: Within normal limits; Pulse Ox: Within normal limits on room air. Blood pressure screening: The patient was found to have an elevated blood pressure and was referred to their primary doctor for recheck and further treatment. Summary: Patient was evaluated at bedside, history and physical exam performed. Patient is alert and in no acute distress, but does appear to be in pain, mildly tachypneic on my assessment. He is noted to be quite hypertensive. Patient has mild tenderness to the right flank with palpation, describes as "just a twinge" and not the pain he feels in his back. Abdomen is otherwise soft and nontender, obese. Given the ascending nature of patient's back pain, I am concerned for an aortic dissection. EKG reviewed at bedside, normal sinus rhythm with no acute ischemic changes. Orders were placed at bedside for labs, UA, IV morphine and Zofran, chest x-ray , CTA of the chest/abdomen/pelvis to evaluate for dissection, aneurysm, others. Patient discussed with Dr. Simons, who agrees with my assessment and plan. Patient noted to be markedly hypertensive on multiple checks, he was given IV hydralazine 10 mg, with some improvement. Labs reviewed as above, d-dimer is elevated. Mildly elevated lipase with normal liver enzymes, I feel this may be most likely reactive. Chest x-ray appears to have a widened mediastinum by my read, as well as a small left sided infiltrate. This is again concerning for aortic dissection. CT imaging reviewed, no evidence of aortic dissection or aneurysm, no pulmonary embolism, no hydronephrosis to suggest obstructing ureteral stone. Patient hypertension is improving, and his pain has greatly improved, now rates as 4/10 after receiving the morphine. He states he did not take any of his medications this morning including his blood pressure medicine. This was ordered and given to him now. Patient still concerned about his gallbladder, as there is no other definitive diagnosis for his right sided pain, an ultrasound was ordered to evaluate his gallbladder. Ultrasound was reviewed, shows cholelithiasis without any evidence of cholecystitis or dilated common bile duct. Patient reassessed multiple times throughout ED stay, he reports that his pain is now almost completely gone, and he feels very comfortable, wishes to be discharged home. I did discuss the possibility of a passed kidney stone, given the presence of hematuria and flank pain without an explanation. Patient was updated on all results, he was encouraged to follow very closely with his PCP, and to have his blood pressure rechecked at his next visit. Patient was also given strict return precautions, he verbalized understanding. Patient was discharged home in stable condition and ambulatory. Medication Reconcilliation Current Medication List: was personally reviewed by me Blood Pressure Screening Patient's blood pressure: Elevated blood pressure Blood pressure disposition: Referred to PCP Impression Primary Impression: Right flank pain Additional Impression: Hypertension Departure Information Dispostion Home / Self-Care Condition GOOD Referrals Lakhwinder Palomino M.D. (PCP) Patient Instructions ED Flank Pain Uncertain Cause, My [facility] Additional Instructions You have been treated in the Emergency Department your right-sided flank pain and high blood pressure. Laboratory results and imaging studies have ruled out any emergent causes for your abdominal pain which would warrant admission or surgery. Continue taking all of your prescribed medications as directed. For pain control, you can use the following [id number] medicines (if >12 yo): - Regular strength (325mg/tab) Tylenol (acetaminophen) 2 tabs every 4-6 hours as needed. Do not exceed 10 tablets in a 24 hour period. Avoid taking more than 3000 mg of Tylenol per day. This includes any other sources of acetaminophen you may take on a regular basis. - Regular strength (200 mg/tab) Advil (ibuprofen) 1-2 tabs every 4-6 hours as needed. Do not exceed a dose of 2400 mg per day. You may also use a heating pad to your right side for comfort. Drink plenty of water and stay well hydrated. Please follow-up with your primary care provider in the next few days to reassess your blood pressure and flank pain. Return to the emergency department if your symptoms return or worsen, including increasing pain, persistent nausea/vomiting, fevers or chills, chest pain, difficulty breathing, blood in your stool or urine, or any other concerns. Problem Qualifiers Additional Impression: Hypertension Hypertension type: unspecified Qualified Codes: I10 - Essential (primary) hypertension
[2017-06-12 08:06] LABS: HEMATOCRIT 49.6 % (42-52); MEAN CELL VOLUME 96.5 fL (80-100); MEAN CORPUSCULAR HEMOGLOBIN 32.9 pg (25-34); MEAN CORPUSCULAR HGB CONC 34.1 g/dl (32-36); MEAN PLATELET VOLUME 10.8 fL (7.4-10.4); PLATELET COUNT 98 K/uL (130-400); RED BLOOD COUNT 5.14 M/uL (4.7-6.1); WHITE BLOOD COUNT 6.85 K/uL (4.8-10.8)
[2017-06-12 08:12] LABS: URINE APPEARANCE CLEAR (CLEAR); URINE BILIRUBIN NEG (NEG); URINE COLOR YELLOW; URINE NITRITE NEG (NEG); URINE SPECIFIC GRAVITY 1.035 (1.000-1.030); UROBILINOGEN NEG (NEG)
[2017-06-12 08:15] LABS: MANUAL MICROSCOPIC REQUIRED? NO; REVIEW REQ? NO
[2017-06-12 08:24] LABS: BLOOD UREA NITROGEN 9 mg/dl (7-18); BUN/CREATININE RATIO 8.5 (10-20); CALCIUM 9.6 mg/dl (8.5-10.1); CARBON DIOXIDE 29 mmol/L (21-32); CHLORIDE 99 mmol/L (98-107); CREATININE 1.03 mg/dl (0.60-1.40); GLUCOSE 242 mg/dl (70-99); POTASSIUM 4.4 mmol/L (3.5-5.1); SODIUM 134 mmol/L (136-145)
[2017-06-12 08:29] LABS: ALKALINE PHOSPHATASE 91 U/L (45-117); ALT/SGPT 36 U/L (12-78); AST/SGOT 18 U/L (15-37)
[2017-06-12] MEDS ORDERED: OPTIRAY 320 IV PRN (08:30)
--- NOTE | 2017-06-12 08:30 | DIAGNOSTIC IMAGING REPORT ---
CHEST 2 VIEWS ROUTINE CLINICAL HISTORY: CHEST PAIN dyspnea COMPARISON STUDY: 08/06/2016 FINDINGS: Interval development of a patchy parenchymal infiltrate left midlung and left base. Slight blunting left lateral costophrenic angle. Right lung is considered clear. IMPRESSION: Interval development of left midlung and left basilar infiltrative change. Trace pleural fluid versus reactive change left lateral costophrenic angle The above report was generated using voice recognition software. It may contain grammatical, syntax or spelling errors. Electronically signed by: Santosh Hunter M.D. 06/12/2017 8:29 AM Dictated Date/Time: 06/12/2017 8:28 AM
[2017-06-12 08:31] LABS: BASO % 0.1 %; BASO ABS # 0.01 K/uL (0-0.2); COMPLETE YES; EOS % 2.3 %; IG% 0.4 %; LYMPH % 10.1 %; LYMPH ABS # 0.69 K/uL (1.2-3.4); NEUT % 80.1 %
[2017-06-12] MEDS ORDERED: HydrALAZINE HCL 20 MG/ML VIAL IV. STA (08:31)
[2017-06-12] MEDS ORDERED: SITA100T3 PO (09:08)
[2017-06-12] MEDS ORDERED: PIOG1TAB20 PO (09:08)
[2017-06-12] MEDS ORDERED: GLC/500 PO (09:08)
--- NOTE | 2017-06-12 09:09 | DIAGNOSTIC IMAGING REPORT ---
ANGIO ABD/PELVIS WITH CONTRAST CLINICAL HISTORY: Chest pain. Dyspnea. TECHNIQUE: Transaxial acquisition pre and post contrast administration. Three-dimensional evaluation. COMPARISON STUDY: None FINDINGS: Mild pleural reactive change combined with a small effusion left lung base. Low thoracic aorta is unremarkable. Abdominal aorta as well as iliac vasculature confirms presence of mild to moderate atherosclerotic change. Origins of the renal arteries as well as the celiac axis and superior mesenteric artery appear unremarkable. Liver spleen and pancreas are unremarkable. Kidneys negative for hydronephrosis. Bowel pattern is nonobstructive. IMPRESSION: Mild atherosclerotic change. No evidence for aneurysm or dissection. The above report was generated using voice recognition software. It may contain grammatical, syntax or spelling errors. Electronically signed by: Santosh Hunter M.D. 06/12/2017 9:07 AM Dictated Date/Time: 06/12/2017 9:01 AM
--- NOTE | 2017-06-12 09:11 | DIAGNOSTIC IMAGING REPORT ---
CT CHEST COMBO ANGIO DISSECTION CLINICAL HISTORY: Chest and abdominal pain. Suspected dissection. COMPARISON STUDY: Chest CT dated 11/30/2016 A dose reduction technique was utilized according to the principles of ALARA FINDINGS: Unenhanced images were obtained through the thorax. There is no evidence of aortic hematoma. Patient was then scanned in a dynamic helical fashion during intravenous administration 115 cc of Optiray 320. MIP imaging was performed. No thyroid masses are visualized. There is no pathologic adenopathy. There are no pulmonary artery filling defects to indicate acute pulmonary embolism. The ascending thoracic aorta measures 35 mm. There is no evidence of aortic dissection. There are multiple old left-sided rib fractures. There is a small left pleural effusion. There are left lower lobe atelectatic changes. There is evidence of cholelithiasis. There are stable sebaceous cysts within the back. IMPRESSION: 1. No evidence of thoracic aortic aneurysm or dissection 2. Old left-sided rib fractures. 3. Small left pleural effusion with left lower lobe atelectasis 4. Cholelithiasis Electronically signed by: Reza Chan M.D. 06/12/2017 9:10 AM Dictated Date/Time: 06/12/2017 8:59 AM
[2017-06-12] MEDS ORDERED: LOSARTAN POTASSIUM 25 MG TAB PO STA (09:34)
[2017-06-12 09:58] LABS: CKMB/CK RATIO 1.2 (0-3.0)
--- NOTE | 2017-06-12 11:06 | DIAGNOSTIC IMAGING REPORT ---
BILIARY ULTRASOUND CLINICAL HISTORY: Right upper quadrant abdominal pain. Possible cholecystitis. COMPARISON STUDY: 04/30/2006, CT scan dated 06/12/2017 FINDINGS: There is suboptimal visualization of the pancreas. There is cholelithiasis. There is no gallbladder wall thickening. There is no pericholecystic fluid. There is no ductal dilatation. The common bile duct measures 6 mm. There is no right-sided hydronephrosis. No hepatic masses are visualized. The liver is of increased echogenicity suggesting hepatic steatosis. IMPRESSION: 1. Cholelithiasis. No evidence of gallbladder wall thickening. No evidence of ductal dilatation 2. Suspected hepatic steatosis 3. Nondiagnostic evaluation of the pancreas Electronically signed by: Reza Chan M.D. 06/12/2017 11:04 AM Dictated Date/Time: 06/12/2017 11:02 AM
[2017-06-12 11:50] VITALS: BP 191/91; PULSE 66; O2SAT 98
== END 2017-06-12 12:02 | disposition home or self-care (01) ==
LOC: C.EDB 07:42
DX: R10.31 Right lower quadrant pain (principal); I10 Essential (primary) hypertension; R11.2 Nausea with vomiting, unspecified; E11.9 Type 2 diabetes mellitus without complications; E78.5 Hyperlipidemia, unspecified; F17.210 Nicotine dependence, cigarettes, uncomplicated; Z83.3 Family history of diabetes mellitus; Z79.899 Other long term (current) drug therapy; Z79.84 Long term (current) use of oral hypoglycemic drugs; E66.9 Obesity, unspecified; Z68.35 Body mass index [BMI] 35.0-35.9, adult

== ENCOUNTER → 2017-06-19 | Outpatient (CLI) | payer BC ==
[~2017-06-19] MED LIST changes: -ACT15 PO; -ASPEC325 PO; +GLC/500 PO; -GLC500 PO; +PIOG1TAB20 PO; +SITA100T3 PO
[2017-06-19 13:25] LABS: URINE APPEARANCE CLEAR (CLEAR); URINE BILIRUBIN NEG (NEG); URINE COLOR DK YELLOW; URINE EPITHELIAL CELL AUTO 20-30 /lpf (0-5); URINE NITRITE NEG (NEG); URINE SPECIFIC GRAVITY 1.025 (1.000-1.030); UROBILINOGEN NEG (NEG)
[2017-06-19 13:41] LABS: MANUAL MICROSCOPIC REQUIRED? NO; REVIEW REQ? NO
== END | disposition home or self-care (01) ==
LOC: C.LABPVFM 08:32
PROVIDERS: ATTEND Internal Medicine
DX: R97.20 Elevated prostate specific antigen [PSA] (principal); R31.29 Other microscopic hematuria

== ENCOUNTER → 2017-10-08 | Outpatient (CLI) | payer BC ==
[2017-10-08 12:56] LABS: BASO % 0.1 %; BASO ABS # 0.01 K/uL (0-0.2); EOS % 4.5 %; EOS ABS # 0.32 K/uL (0-0.5); HEMATOCRIT 49.2 % (42-52); HEMOGLOBIN 16.5 g/dL (14.0-18.0); IG# 0.03 K/uL (0.00-0.02); LYMPH % 12.6 %; MEAN CELL VOLUME 96.3 fL (80-100); MEAN CORPUSCULAR HEMOGLOBIN 32.3 pg (25-34); MEAN CORPUSCULAR HGB CONC 33.5 g/dl (32-36); MEAN PLATELET VOLUME 11.5 fL (7.4-10.4); MONO % 6.6 %; MONO ABS # 0.47 K/uL (0.11-0.59); NEUT % 75.8 %; NEUT ABS # 5.39 K/uL (1.4-6.5); PLATELET COUNT 117 K/uL (130-400); RED CELL DISTRIBUTION WIDTH CV 14.1 % (11.5-14.5); RED CELL DISTRIBUTION WIDTH SD 49.5 fL (36.4-46.3); WHITE BLOOD COUNT 7.12 K/uL (4.8-10.8)
[2017-10-08 13:23] LABS: HEMOGLOBIN A1C 8.6 % (4.5-5.6)
[2017-10-08 14:27] LABS: ALBUMIN 3.7 gm/dl (3.4-5.0); ALT/SGPT 37 U/L (12-78); BLOOD UREA NITROGEN 13 mg/dl (7-18); CALCIUM 8.6 mg/dl (8.5-10.1); CARBON DIOXIDE 24 mmol/L (21-32); GLUCOSE 264 mg/dl (70-99); POTASSIUM 4.6 mmol/L (3.5-5.1); SODIUM 135 mmol/L (136-145)
[2017-10-08 14:38] LABS: ALKALINE PHOSPHATASE 84 U/L (45-117); AST/SGOT 19 U/L (15-37); CHOLESTEROL 179 mg/dl (0-200); LDL CHOLESTEROL CALCULATED 109 mg/dl; TOTAL PROTEIN 7.2 gm/dl (6.4-8.2)
== END | disposition home or self-care (01) ==
LOC: C.LABPVFM 07:02
PROVIDERS: ATTEND Internal Medicine
DX: E11.29 Type 2 diabetes mellitus with other diabetic kidney complication (principal)

== ENCOUNTER 2021-03-02 05:32 | Inpatient (IN) ==
--- NOTE | 2021-03-02 05:51 | Emergency Department Note ---
Impression & Plan Pneumonia, Hypomagnesemia, JESSENIA (acute kidney injury), Acute hyponatremia, Hyperglycemia due to diabetes mellitus Admit to the [facility] service ED Provider Note NAME: LATISHA FELDMAN AGE: 70 SEX: M ARRIVES VIA: Walk-In INFORMANT: Patient and his ED PROVIDER(S): Bere Saunders DO CHIEF COMPLAINT: Nausea, vomiting, diarrhea, and dizziness PLAN: Disposition: Admit to the [facility] service Condition: Guarded MEDICAL DECISION MAKING: This is a 70-year-old male patient who presents to the emergency department with multiple complaints. His symptoms started approximately 4 days ago and are not subsiding. Patient is a diabetic and he's noticed that his blood sugars are increasing. Most notably, the patient has had a fever, chills, nausea vomiting and diarrhea. The patient was treated with IV normal saline and IV magnesium This x-ray shows evidence of a large left-sided pleural effusion/pulmonary infiltrate which is concerning for pneumonia. He is significantly hyponatremic and hypomagnesemic. He is febrile on presentation but has no leukocytosis. O2 saturations remained stable. There is no evidence of elevated lactate or sepsis. Patient was treated with IV Levaquin. He is vaccinated with a negative Covid test here in the emergency department. I discussed the case with the [facility] and they will evaluate for further management. Triage Nursing notes reviewed and agree them. Additional history obtained from patient's is at the bedside Prior medical records reviewed Vital Signs: reviewed and unremarkable Differential diagnosis: Covid, sepsis, UTI, pneumonia, DKA, electrolyte abnormality ER treatment provided: IV normal saline IV Levaquin drip IV magnesium Diagnostics interpreted by me: ECG: Normal sinus rhythm at a rate of [address] segment elevation or signs of ischemia. There is no ectopy. Cardiac Monitoring: Normal sinus rhythm at a rate of 78 Laboratory studies: See below Imaging studies: As per my interpretation Portable chest x-ray: Large left-sided pleural effusion and infiltrate HPI: 70/M arrives for evaluation of fever, chills, nausea, vomiting and dizziness. The patient presents to the emergency department with multiple complaints since Saturday. The patient describes decreased appetite and sleep. He complains of fever, chills, cough, nausea, diarrhea and dizziness. The patient has been vaccinated from [employer]. ROS: See above HPI for pertinent positives & negatives. A total of 10 systems reviewed and were otherwise negative. PAST MEDICAL HISTORY:See Below PAST SURGICAL HISTORY:See Below FAMILY HISTORY:See Below SOCIAL HISTORY:See Below HOME MEDICATIONS:See list ALLERGIES:See list VITALS:See Below PHYSICAL EXAMINATION: HEENT: Head - normocephalic and atraumatic Pupils are equal, round, and reactive to light. Extraocular eye muscles are intact, and sclera are anicteric. Nose - moist nasal mucosa without discharge. Mouth - moist buccal mucosa. Oropharynx is nonerythematous and there is no tonsillar exudate or edema noted. Neck: Supple; no JVD, nuchal rigidity, cervical lymphadenopathy, or auscultated bruits. Heart: Regular rate and rhythm. There is a normal S1 and S2 with no murmurs, clicks, or gallops appreciated. Lungs: Clear to auscultation bilaterally with no wheezes, rales, or rhonchi. Abdomen: Soft, completely nontender, nondistended, with good bowel sounds. There are no palpable pulsatile masses or hepatosplenomegaly. There is no guarding, rigidity, or rebound noted. Extremities: No evidence of cyanosis, clubbing, or edema. There are easily palpable peripheral pulses. Skin: warm and dry with good turgor and no rashes. ED COURSE: Times/Reassessments: [id number]: Patient was evaluated in room A2. A complete history and physical was performed. A septic protocol was done. An order was placed for continuous cardiac monitoring. The patient was in a normal sinus rhythm at a rate of 78. A twelve-lead EKG was obtained as described above. Patient was bolused with IV normal saline solution. It was noted that he was hypomagnesemic and he was given IV magnesium. A chest x-ray was performed. This showed evidence of a left-sided pulmonary infiltrate and significant pleural effusion. Given the patient's fever, he was treated with IV Levaquin. Covid testing was negative. The case was discussed with the [facility] and they will evaluate for further management. Bere Saunders DO Past Med/Surg History Medical History (Updated 03/02/21 @ 17:01 by Bere Saunders DO) Knee pain, right Left sided chest pain Polycythemia vera Right flank pain Surgical History H/O total knee replacement History of arthroscopy of right knee History of dermoid cyst excision History of shoulder surgery Status post biopsy of skin Family History Father Kidney disease Social History Smoking Status: Current every day smoker Tobacco Type: Cigars Cigarettes Per Day: 2-3/day; Smoking End Date: 02/27/21; Second Hand Exposure: Yes (father); Do You Dip or Chew Tobacco: No; Hx Alcohol Use: Yes Alcohol type: beer and hard liquor Hx Substance Use: No Preferred Language: Telugu Communication Ability: Effective Beliefs That Will Affect Care: None marital status: Current Living Situation: Spouse current occupational status: retired Other Information That Helps Us Care for You: No Feels Safe at Home: Yes Assistive Devices: Denture - Upper and Denture - Lower Allergies Allergies Allergy/AdvReac Type Severity Reaction Status Date / Time peanut Allergy Severe Anaphylaxis Unverified 03/02/21 08:35 VANDA Inhibitors Allergy Unknown reaction Verified 03/02/21 08:35 unknown capsaicin Allergy Unknown unknown Verified 03/02/21 08:35 reaction celecoxib Allergy Unknown pruritis Verified 03/02/21 08:35 diclofenac Allergy Unknown unknown Verified 03/02/21 08:35 reaction Diclopak Allergy Unknown unknown Verified 12/13/17 10:15 reaction Tmovfof-Wbh-Phx Reductase AdvReac Unknown myalgias Verified 03/02/21 08:35 Inhibitor Home Meds Home Medications Medication Instructions Recorded Confirmed ibuprofen 200 mg tablet (Advil) 400 mg PO Q4H tab 04/29/19 03/02/21 ezetimibe 10 mg tablet (Zetia) 10 mg PO QAM 03/02/21 03/02/21 losartan 25 mg tablet 25 mg PO QAM 03/02/21 03/02/21 pioglitazone 45 mg tablet 45 mg PO QAM 03/02/21 03/02/21 rosuvastatin 5 mg tablet 5 mg PO QAM 03/02/21 03/02/21 Previous Rx's Medication Instructions Recorded blood sugar diagnostic (OneTouch #100 ea 11/18/20 Verio test strips) blood-glucose meter (OneTouch #1 ea 11/18/20 Verio Meter) insulin glargine 100 unit/mL (3 35 unit SUBCUT QAM 90 Days #45 ml 11/18/20 mL) subcutaneous pen (Lantus Solostar U-100 Insulin) lancets (OneTouch UltraSoft #200 ea 11/18/20 Lancets) pen needle, diabetic 29 gauge x #100 ea 11/18/20 1/2" (BD Ultra-Fine Original Pen Needle) Results & Data (ED) Vital Signs Vital Signs - 24 hr 03/02/21 05:37 03/02/21 05:43 03/02/21 05:52 Temperature 37.3 C Temperature Source Oral Pulse Rate 99 H 93 H Pulse Rate [Apical] 90 Pulse Rate from SpO2 Sensor 93 H Pulse Rhythm Pulse Rhythm [Apical] Regular Pulse Strength [Apical] Normal Respiratory Rate 20 19 20 Respiratory Effort / Characteristics Non-Labored Non-Labored Spontaneous Respiratory Depth Normal Normal Respiratory Pattern Regular Blood Pressure 119/60 128/68 Blood Pressure [Left Arm] 128/68 Blood Pressure Mean 79 88 Blood Pressure Mean [Left Arm] 88 Blood Pressure Position [Left Arm] Lying Pulse Oximetry 92 97 96 Oxygen Delivery Method Room Air Room Air Sepsis Recent Fever Within 48 Hours Yes Sepsis New/Unexplained Change in Mental Status No Sepsis Action Taken by Nursing No Action Required 03/02/21 05:57 03/02/21 06:11 03/02/21 06:30 Temperature Temperature Source Pulse Rate 78 93 H Pulse Rate [Apical] Pulse Rate from SpO2 Sensor 93 H Pulse Rhythm Regular Pulse Rhythm [Apical] Pulse Strength [Apical] Respiratory Rate 20 17 Respiratory Effort / Characteristics Non-Labored Spontaneous Respiratory Depth Respiratory Pattern Blood Pressure 122/63 Blood Pressure [Left Arm] Blood Pressure Mean 82 Blood Pressure Mean [Left Arm] Blood Pressure Position [Left Arm] Pulse Oximetry 97 97 97 Oxygen Delivery Method Room Air Room Air Sepsis Recent Fever Within 48 Hours Sepsis New/Unexplained Change in Mental Status Sepsis Action Taken by Nursing 03/02/21 06:42 03/02/21 07:00 03/02/21 07:30 Temperature Temperature Source Pulse Rate 90 90 Pulse Rate [Apical] Pulse Rate from SpO2 Sensor 90 90 Pulse Rhythm Pulse Rhythm [Apical] Pulse Strength [Apical] Respiratory Rate 18 27 H 20 Respiratory Effort / Characteristics Non-Labored Spontaneous Non-Labored Spontaneous Respiratory Depth Respiratory Pattern Blood Pressure 112/70 107/71 Blood Pressure [Left Arm] Blood Pressure Mean 84 83 Blood Pressure Mean [Left Arm] Blood Pressure Position [Left Arm] Pulse Oximetry 98 96 96 Oxygen Delivery Method Room Air Room Air Sepsis Recent Fever Within 48 Hours Sepsis New/Unexplained Change in Mental Status Sepsis Action Taken by Nursing 03/02/21 07:56 03/02/21 08:00 Temperature Temperature Source Pulse Rate 87 86 Pulse Rate [Apical] Pulse Rate from SpO2 Sensor 88 86 Pulse Rhythm Pulse Rhythm [Apical] Pulse Strength [Apical] Respiratory Rate 12 19 Respiratory Effort / Characteristics Respiratory Depth Respiratory Pattern Blood Pressure 100/49 L 111/62 Blood Pressure [Left Arm] Blood Pressure Mean 66 78 Blood Pressure Mean [Left Arm] Blood Pressure Position [Left Arm] Pulse Oximetry 96 97 Oxygen Delivery Method Room Air Room Air Sepsis Recent Fever Within 48 Hours Sepsis New/Unexplained Change in Mental Status Sepsis Action Taken by Nursing Laboratory Data Result diagrams: 03/02/21 06:05 03/02/21 06:05 Lab Results 03/02/21 03/02/21 03/02/21 Range/Units 05:59 05:59 06:05 WBC (4.8-10.8) K/uL RBC (4.7-6.1) M/uL Hgb (14.0-18.0) g/dL Hct (42-52) % MCV (80-100) fL MCH (25-34) pg MCHC (32-36) g/dL RDW Std Deviation (36.4-46.3) fL RDW Coeff of Brett (11.5-14.5) % Plt Count (130-400) K/uL MPV (7.4-10.4) fL Immature Gran % (Auto) % Neut % (Auto) % Lymph % (Auto) % [place] % (Auto) % Eos % (Auto) % Baso % (Auto) % Neut # (Auto) (1.4-6.5) K/uL Lymph # (Auto) (1.2-3.4) K/uL [place] # (Auto) (0.11-0.59) K/uL Eos # (Auto) (0-0.5) K/uL Baso # (Auto) (0-0.2) K/uL Immature Gran # (Auto) (0.00-0.02) K/uL PT (9.0-12.0) Seconds INR (0.9-1.1) APTT (21.0-31.0) Seconds PTT Ratio Sodium 128 L (136-145) mmol/L Potassium 4.6 (3.5-5.1) mmol/L Chloride 96 L (98-107) mmol/L Carbon Dioxide 26 (21-32) mmol/L Anion Gap 7.0 (3-11) BUN 27 H (7-18) mg/dl Creatinine 1.45 H (0.6-1.4) mg/dl Est Cr Clr Drug Dosing 60.7 ml/min Est GFR ( Amer) 56.1 ml/min Est GFR (Non-Af Amer) 48.4 ml/min BUN/Creatinine Ratio 18.8 (10-20) Glucose 363 H* (70-99) mg/dl POC Glucose (70-99) mg/dl Lactate (0.4-2.0) mmol/L Calcium 9.2 (8.5-10.1) mg/dl Magnesium 1.4 L (1.8-2.4) mg/dl Total Bilirubin 1.9 H (0.2-1) mg/dl AST 55 H (15-37) U/L ALT 82 H (12-78) U/L Alkaline Phosphatase 158 H (45-117) U/L Troponin I < 0.015 (0-0.045) ng/ml Total Protein 7.9 (6.4-8.2) gm/dl Albumin 3.3 L (3.4-5.0) gm/dl Globulin 4.6 H (2.5-4.0) gm/dl Albumin/Globulin Ratio 0.7 L (0.9-2) Beta-Hydroxybutyric Acd 5.04 H (0.2-2.81) mg/dl Urine Color Urine Appearance (Clear) Urine pH (4.5-7.5) Ur Specific [place] (1.000-1.030) Urine Protein (Negative) Urine Glucose (UA) (Negative) Urine Ketones (Negative) Urine Blood (Negative) Urine Nitrite (Negative) Urine Bilirubin (Negative) Urine Urobilinogen (Negative) Ur Leukocyte Esterase (Negative) Urine WBC (Auto) (0-5) /hpf Urine RBC (Auto) (0-4) /hpf U Hyaline Cast (Auto) (0-5) /lpf U Epithel Cells (Auto) (0-5) /lpf Urine Bacteria (Auto) (Negative) Urine Mucus (None Prsent) Urine Yeast COVID-19 Eval Order Covid19 at [facility] SARS-CoV-2 (PCR) NEGATIVE (Negative) 03/02/21 03/02/21 03/02/21 Range/Units 06:05 06:05 06:05 WBC 7.37 (4.8-10.8) K/uL RBC 5.10 (4.7-6.1) M/uL Hgb 15.2 (14.0-18.0) g/dL Hct 44.7 (42-52) % MCV 87.6 (80-100) fL MCH 29.8 (25-34) pg MCHC 34.0 (32-36) g/dL RDW Std Deviation 44.1 (36.4-46.3) fL RDW Coeff of Brett 13.7 (11.5-14.5) % Plt Count 129 L (130-400) K/uL MPV 11.5 H (7.4-10.4) fL Immature Gran % (Auto) 0.3 % Neut % (Auto) 83.3 % Lymph % (Auto) 5.7 % [place] % (Auto) 10.6 % Eos % (Auto) 0.0 % Baso % (Auto) 0.1 % Neut # (Auto) 6.14 (1.4-6.5) K/uL Lymph # (Auto) 0.42 L (1.2-3.4) K/uL [place] # (Auto) 0.78 H (0.11-0.59) K/uL Eos # (Auto) 0.00 (0-0.5) K/uL Baso # (Auto) 0.01 (0-0.2) K/uL Immature Gran # (Auto) 0.02 (0.00-0.02) K/uL PT 10.1 (9.0-12.0) Seconds INR 1.0 (0.9-1.1) APTT 27.4 (21.0-31.0) Seconds PTT Ratio 1.0 Sodium (136-145) mmol/L Potassium (3.5-5.1) mmol/L Chloride (98-107) mmol/L Carbon Dioxide (21-32) mmol/L Anion Gap (3-11) BUN (7-18) mg/dl Creatinine (0.6-1.4) mg/dl Est Cr Clr Drug Dosing ml/min Est GFR ( Amer) ml/min Est GFR (Non-Af Amer) ml/min BUN/Creatinine Ratio (10-20) Glucose (70-99) mg/dl POC Glucose (70-99) mg/dl Lactate 1.9 (0.4-2.0) mmol/L Calcium (8.5-10.1) mg/dl Magnesium (1.8-2.4) mg/dl Total Bilirubin (0.2-1) mg/dl AST (15-37) U/L ALT (12-78) U/L Alkaline Phosphatase (45-117) U/L Troponin I (0-0.045) ng/ml Total Protein (6.4-8.2) gm/dl Albumin (3.4-5.0) gm/dl Globulin (2.5-4.0) gm/dl Albumin/Globulin Ratio (0.9-2) Beta-Hydroxybutyric Acd (0.2-2.81) mg/dl Urine Color Urine Appearance (Clear) Urine pH (4.5-7.5) Ur Specific [place] (1.000-1.030) Urine Protein (Negative) Urine Glucose (UA) (Negative) Urine Ketones (Negative) Urine Blood (Negative) Urine Nitrite (Negative) Urine Bilirubin (Negative) Urine Urobilinogen (Negative) Ur Leukocyte Esterase (Negative) Urine WBC (Auto) (0-5) /hpf Urine RBC (Auto) (0-4) /hpf U Hyaline Cast (Auto) (0-5) /lpf U Epithel Cells (Auto) (0-5) /lpf Urine Bacteria (Auto) (Negative) Urine Mucus (None Prsent) Urine Yeast COVID-19 Eval Order SARS-CoV-2 (PCR) (Negative) 03/02/21 03/02/21 03/02/21 Range/Units 06:07 06:09 06:53 WBC (4.8-10.8) K/uL RBC (4.7-6.1) M/uL Hgb (14.0-18.0) g/dL Hct (42-52) % MCV (80-100) fL MCH (25-34) pg MCHC (32-36) g/dL RDW Std Deviation (36.4-46.3) fL RDW Coeff of Brett (11.5-14.5) % Plt Count (130-400) K/uL MPV (7.4-10.4) fL Immature Gran % (Auto) % Neut % (Auto) % Lymph % (Auto) % [place] % (Auto) % Eos % (Auto) % Baso % (Auto) % Neut # (Auto) (1.4-6.5) K/uL Lymph # (Auto) (1.2-3.4) K/uL [place] # (Auto) (0.11-0.59) K/uL Eos # (Auto) (0-0.5) K/uL Baso # (Auto) (0-0.2) K/uL Immature Gran # (Auto) (0.00-0.02) K/uL PT (9.0-12.0) Seconds INR (0.9-1.1) APTT (21.0-31.0) Seconds PTT Ratio Sodium (136-145) mmol/L Potassium (3.5-5.1) mmol/L Chloride (98-107) mmol/L Carbon Dioxide (21-32) mmol/L Anion Gap (3-11) BUN (7-18) mg/dl Creatinine (0.6-1.4) mg/dl Est Cr Clr Drug Dosing ml/min Est GFR ( Amer) ml/min Est GFR (Non-Af Amer) ml/min BUN/Creatinine Ratio (10-20) Glucose (70-99) mg/dl POC Glucose 410 H* 397 H* (70-99) mg/dl Lactate (0.4-2.0) mmol/L Calcium (8.5-10.1) mg/dl Magnesium (1.8-2.4) mg/dl Total Bilirubin (0.2-1) mg/dl AST (15-37) U/L ALT (12-78) U/L Alkaline Phosphatase (45-117) U/L Troponin I (0-0.045) ng/ml Total Protein (6.4-8.2) gm/dl Albumin (3.4-5.0) gm/dl Globulin (2.5-4.0) gm/dl Albumin/Globulin Ratio (0.9-2) Beta-Hydroxybutyric Acd (0.2-2.81) mg/dl Urine Color [place] Urine Appearance Cloudy A (Clear) Urine pH 5.0 (4.5-7.5) Ur Specific [place] 1.027 (1.000-1.030) Urine Protein 1+ H (Negative) Urine Glucose (UA) 3+ H (Negative) Urine Ketones 1+ H (Negative) Urine Blood 2+ H (Negative) Urine Nitrite Positive A (Negative) Urine Bilirubin 1+ H (Negative) Urine Urobilinogen Negative (Negative) Ur Leukocyte Esterase 1+ H (Negative) Urine WBC (Auto) 10-30 H (0-5) /hpf Urine RBC (Auto) 0-4 (0-4) /hpf U Hyaline Cast (Auto) 1-5 (0-5) /lpf U Epithel Cells (Auto) 20-30 H (0-5) /lpf Urine Bacteria (Auto) 1+ H (Negative) Urine Mucus Present A (None Prsent) Urine Yeast Not Reportable COVID-19 Eval Order SARS-CoV-2 (PCR) (Negative) Administered Medications Ezetimibe (Ezetimibe 10 Mg Tablet) 10 mg PO DAILY PARVIZ Stop: 04/01/21 12:39 Last Admin: 03/02/21 14:46 Dose: 10 mg Documented by: [id number] Heparin Sodium (Porcine) (Heparin Sod 5,000 Unit/0.5 Ml Vial) 5,000 units SQ Q12 PARVIZ Stop: 04/01/21 12:59 Last Admin: 03/02/21 14:47 Dose: 5,000 units Documented by: [id number] Sodium Chloride (Nss) 500 mls @ 125 mls/hr IV .Q4H PARVIZ Stop: 04/01/21 07:59 Last Admin: 03/02/21 12:17 Dose: 125 mls/hr Documented by: [id number] Infusion: 03/02/21 12:17 Dose: 125 mls/hr Documented by: [id number] Admin: 03/02/21 08:28 Dose: 125 mls/hr Documented by: [id number] Insulin Aspart (Insulin Aspart 100 Units/Ml 3 Ml Pen) 0 units SC ACHS PARVIZ Stop: 04/01/21 13:29 Last Admin: 03/02/21 14:43 Dose: 14 units Documented by: [id number] Cosigned by: [id number] Losartan Potassium (Losartan Potassium 25 Mg Tab) 25 mg PO DAILY PARVIZ Stop: 04/01/21 12:39 Last Admin: 03/02/21 14:46 Dose: 25 mg Documented by: [id number] Discontinued Medications Levofloxacin/Dextrose (Levaquin/D5w) 750 mg in 150 mls @ 100 mls/hr IV NOW STA Stop: 03/02/21 08:40 Last Infusion: 03/02/21 09:14 Dose: 0 mls/hr Documented by: [id number] Admin: 03/02/21 07:44 Dose: 100 mls/hr Documented by: [id number] Sodium Chloride (Nss) 500 mls @ 999 mls/hr IV .Q31M ONE Stop: 03/02/21 08:16 Last Infusion: 03/02/21 08:23 Dose: 0 mls/hr Documented by: [id number] Admin: 03/02/21 07:52 Dose: 999 mls/hr Documented by: [id number] Magnesium Sulfate/Dextrose (Magnesium Sulfate / D5w) 1 gm in 100 mls @ 50 mls/hr IV Q2H STA Stop: 03/02/21 10:02 Last Infusion: 03/02/21 10:29 Dose: 0 mls/hr Documented by: [id number] Admin: 03/02/21 08:29 Dose: 50 mls/hr Documented by: [id number] Magnesium Sulfate/Dextrose (Magnesium Sulfate / D5w) 1 gm in 100 mls @ 50 mls/hr IV Q2H PARVIZ Stop: 03/02/21 14:59 Last Infusion: 03/02/21 14:19 Dose: 0 mls/hr Documented by: [id number] Admin: 03/02/21 12:19 Dose: 50 mls/hr Documented by: [id number] Infusion: 03/02/21 12:19 Dose: 50 mls/hr Documented by: [id number] Admin: 03/02/21 10:31 Dose: 50 mls/hr Documented by: [id number] Insulin Human Regular 5 units/ (Syringe) 5 mls @ 30 mls/min IV NOW ONE Stop: 03/02/21 13:46 Last Admin: 03/02/21 14:42 Dose: 30 mls/min Documented by: [id number] Cosigned by: [id number] Imaging Data Radiologist's Impression: Chest X-Ray 03/02/21 05:44 XR chest 1V portable CLINICAL HISTORY: SEPSIS COMPARISON STUDY: February 06, 2017 FINDINGS: No pneumothorax. Moderate left pleural effusion is seen associated with atelectasis/infiltrate at the left base. Mild diffuse prominence of pulmonary interstitium is seen bilaterally. Cardiomediastinal silhouette is within normal limits in size and partially obscured on the left. No significant pulmonary vascular congestion.. Osseous structures: Degenerative changes of the spine. IMPRESSION: 1. Moderate left pleural effusion associated with atelectasis/infiltrate. ACT 112: Negative or not required by law. The above report was generated using voice recognition software. It may contain grammatical, syntax or spelling errors. Electronically signed by: Katina Flynn DO 03/02/2021 9:41 AM Discharge Plan Visit Data Chief Complaint: Illness Stated Complaint: VOMITING,DIZZY,ABD PAIN ED Provider: Bere Saunders Discharge Problem: Pneumonia, Hypomagnesemia, JESSENIA (acute kidney injury), Acute hyponatremia, Hyperglycemia due to diabetes mellitus Patient Disposition: Admitted As Inpatient Discharge Instructions Interventions: ED Discharge Assessment Last Done: 03/02/21 12:09 Discharge Problem: Pneumonia Qualifiers: Pneumonia type: due to unspecified organism Laterality: left Lung location: lower lobe of lung Qualified Code(s): J18.9 - Pneumonia, unspecified organism
[2021-03-02 06:27] LABS: Basophils # (auto) 0.01 K/uL (0-0.2); Basophils % (auto) 0.1 %; Hematocrit (blood only) 44.7 % (42-52); Hemoglobin 15.2 g/dL (14.0-18.0); Immature Granulocytes # (auto) 0.02 K/uL (0.00-0.02); Immature Granulocytes % (auto) 0.3 %; Lymphocytes # (auto) 0.42 K/uL (1.2-3.4); Lymphocytes % (auto) 5.7 %; Mean Corpuscular Hemoglobin 29.8 pg (25-34); Mean Corpuscular Volume 87.6 fL (80-100); Mean Platelet Volume 11.5 fL (7.4-10.4); Monocytes # (auto) 0.78 K/uL (0.11-0.59); Monocytes % (auto) 10.6 %; Neutrophils # (auto) 6.14 K/uL (1.4-6.5); Neutrophils % (auto) 83.3 %; Platelet Count 129 K/uL (130-400); RDW Coefficient of Variation 13.7 % (11.5-14.5); RDW Standard Deviation 44.1 fL (36.4-46.3); White Blood Count 7.37 K/uL (4.8-10.8)
[2021-03-02 06:46] LABS: Partial Thromboplastin Time 27.4 Seconds (21.0-31.0); Prothrombin Time 10.1 Seconds (9.0-12.0)
[2021-03-02 06:58] LABS: Alanine Aminotransferase 82 U/L (12-78); Albumin Globulin Ratio 0.7 (0.9-2); Albumin Level 3.3 gm/dl (3.4-5.0); Alkaline Phosphatase 158 U/L (45-117); Aspartate Aminotransferase 55 U/L (15-37); BUN Creatinine Ratio 18.8 (10-20); Bilirubin,Total 1.9 mg/dl (0.2-1); Blood Urea Nitrogen 27 mg/dl (7-18); Calcium 9.2 mg/dl (8.5-10.1); Carbon Dioxide 26 mmol/L (21-32); Chloride 96 mmol/L (98-107); Creatinine Clr Calc Pharmacy 60.7 ml/min; Est GFR (African American) 56.1 ml/min; Est GFR (Non-African American) 48.4 ml/min; Globulin 4.6 gm/dl (2.5-4.0); Glucose 363 mg/dl (70-99); Magnesium 1.4 mg/dl (1.8-2.4); Potassium 4.6 mmol/L (3.5-5.1); Sodium 128 mmol/L (136-145); Total Protein 7.9 gm/dl (6.4-8.2); Troponin I < 0.015 ng/ml (0-0.045)
[2021-03-02] MEDS ORDERED: levoFLOXacin/D5W 750 MG/150 ML BAG IV STA (07:11)
[2021-03-02 07:25] LABS: Beta-Hydroxybutyrate 5.04 mg/dl (0.2-2.81)
[2021-03-02 07:29] LABS: Appearance Urine Cloudy (Clear); Blood Urine 2+ (Negative); Color Urine Orange; Epithelial Cell Urine Auto 20-30 /lpf (0-5); Glucose Urine UA 3+ (Negative); Ketones Urine 1+ (Negative); Leukocyte Esterase Urine 1+ (Negative); Nitrite Urine Positive (Negative); Protein Urine 1+ (Negative); Specific Gravity Urine 1.027 (1.000-1.030); Urobilinogen Urine Negative (Negative)
[2021-03-02] MEDS ORDERED: SODIUM CHLORIDE 0.9% 500 ML IV ONE (07:46)
[2021-03-02 08:02] LABS: Bilirubin Urine 1+ (Negative)
[2021-03-02] MEDS ORDERED: MAGNESIUM SULFATE / D5W 1 GM/100 ML BAG IV STA (08:03)
[2021-03-02 08:16] LABS: Mucus Urine Present (None Prsent); RBC Urine Automated 0-4 /hpf (0-4)
[2021-03-02 08:17] LABS: Bacteria Urine Automated 1+ (Negative)
--- NOTE | 2021-03-02 08:17 | History & Physical Report ---
Date of Service March 02, 2021 Assessment & Plan (1) Pneumonia: Plan: Patient with hyperglycemia from physiological stressor and having left lower lobe infiltrate with low-grade temperature. He does not have leukocytosis. The patient was started on levofloxacin in the ER and blood cultures were obtained. Levofloxacin will be continued. However given the relative lack of white count we will check a viral pneumonia titer with a nasal bio fire test. Currently p atient not requiring oxygen supplementation CT chest is pending (2) Diabetes mellitus type 2, uncontrolled: Plan: Patient had marked hyperglycemia with uncontrolled diabetes she is on basal bolus insulin glycemic management. His elevated glucose likely influences his hyponatremia which is present on admission (3) Acute kidney injury: Plan: Patient has acute kidney injury likely from dehydration from his hyperglycemia. Patient's chronic kidney disease is stage III which likely requires renal dose adjustments for his antibiotics. Pharmacy oversight will be had. Patient will be given intravenous fluids for an additional 2 L following his acute kidney inj ury (4) Hypomagnesemia: Plan: Significant on presentation will be replete with 3 g of magnesium (5) Hyperlipidemia: Plan: Continues rosuvastatin (6) Hypertension: Plan: Continues on losartan which is likely renal protective (7) Elevated PSA: Plan: Patient's PSA was checked 1 year ago it was 5, he does not follow with urology h e has discussed this with his primary care and does not want referral to urology (8) Elevated bilirubin: Plan: Patient is elevated bilirubin and mild elevation in transaminases at this time will correlation with exam will follow if continues to be abnormal we will proceed to imaging of his liver gallbladder system (9) DVT prophylaxis: Plan: Heparin for DVT prevention given renal dysfunction History of Present Illness Primary Care Provider: Lakhwinder Palomino MD 70-year-old male patient who presents to the emergency department with multiple complaints. His symptoms started approximately 4 days ago and are not subsiding. Patient is a diabetic and he's noticed that his blood sugars are increasing. Pt is found to have left lower lobe infiltrate, does not have leukocytosis He has hyponatremia but it does correct for hyperglycemia, hypomagnesemia which will be replete. Allergies Allergy/AdvReac Type Severity Reaction Status Date / Time peanut Allergy Severe Anaphylaxis Unverified 03/02/21 08:35 VANDA Inhibitors Allergy Unknown reaction Verified 03/02/21 08:35 unknown capsaicin Allergy Unknown unknown Verified 03/02/21 08:35 reaction celecoxib Allergy Unknown pruritis Verified 03/02/21 08:35 diclofenac Allergy Unknown unknown Verified 03/02/21 08:35 reaction Diclopak Allergy Unknown unknown Verified 12/13/17 10:15 reaction Bontxgm-Xsc-Onb Reductase AdvReac Unknown myalgias Verified 03/02/21 08:35 Inhibitor Home Medications Medication Instructions Recorded Confirmed Type ibuprofen 200 mg tablet (Advil) 400 mg PO Q4H tab 04/29/19 03/02/21 History blood sugar diagnostic (OneTouch #100 ea 11/18/20 Rx Verio test strips) blood-glucose meter (OneTouch #1 ea 11/18/20 Rx Verio Meter) insulin glargine 100 unit/mL (3 35 unit SUBCUT QAM 90 Days #45 ml 11/18/20 03/02/21 Rx mL) subcutaneous pen (Lantus Solostar U-100 Insulin) lancets (OneTouch UltraSoft #200 ea 11/18/20 Rx Lancets) pen needle, diabetic 29 gauge x #100 ea 11/18/20 11/18/20 Rx 1/2" (BD Ultra-Fine Original Pen Needle) ezetimibe 10 mg tablet (Zetia) 10 mg PO QAM 03/02/21 03/02/21 History losartan 25 mg tablet 25 mg PO QAM 03/02/21 03/02/21 History pioglitazone 45 mg tablet 45 mg PO QAM 03/02/21 03/02/21 History rosuvastatin 5 mg tablet 5 mg PO QAM 03/02/21 03/02/21 History Past Med/Surg History Medical History (Updated 03/02/21 @ 13:47 by Payam Mclean MD) Knee pain, right Left sided chest pain Polycythemia vera Right flank pain Surgical History H/O total knee replacement History of arthroscopy of right knee History of dermoid cyst excision History of shoulder surgery Status post biopsy of skin Family History Father Kidney disease Social History Smoking Status: Current every day smoker Tobacco Type: Cigars Cigarettes Per Day: 4-5; Hx Alcohol Use: Yes Preferred Language: Bulgarian marital status: current occupational status: retired Feels Safe at Home: Yes Review of Systems Review of Systems: Mild distress and fatigue no headache, no visual changes no speech or swallowing issues no chest pain, pressure or palpitations no shortness of breath,non productive cough no abdominal pain, nausea or vomiting, diarrhea or constipation no dysuria, hematuria or frequency no focal joint pain or swelling no back pain, CVA tenderness or radicular pain no bruising, bleeding or rashes no focal signs of weakness or numbness or altered sensation no complaints of anxiety or depression.. Physical Exam Physical Exam: The patient appeared well nourished and normally developed. Vital signs as documented. he is not jaundiced Head exam is normocephalic atraumatic Neck is without JVD, thyromegaly, or carotid bruits. Lungs are with abscent breath sounds left base Cardiac exam, Rhythm is regular.. No murmurs, rubs or gallops. Abdominal exam reveals normal bowel sounds, soft non tender, no masses Extremities are nonedematous and both pedal pulses are present Neurologic exam is alert and oriented, no focal loss of strength or sensation Skin is without bruises or rashes Psychologically is without concerns for anxiety or depression Results & Data Results & Data ([facility]) Vital Signs (Past 12 Hours) Vital Signs Temp Pulse Pulse Resp BP BP Pulse Ox 03/02/21 08:04 22 96 03/02/21 08:00 86 19 111/62 97 03/02/21 07:56 87 12 100/49 L 96 03/02/21 07:30 90 20 107/71 96 03/02/21 07:00 90 27 H 112/70 96 03/02/21 06:42 18 98 03/02/21 06:30 93 H 17 122/63 97 03/02/21 06:11 97 03/02/21 05:57 78 20 97 03/02/21 05:52 90 20 128/68 96 03/02/21 05:43 93 H 19 128/68 97 03/02/21 05:37 99.1 F 99 H 20 119/60 92 Code Status & VTE Plan VTE Prophylaxis Plan VTE Prophylaxis will be ordered: Yes PG Care Time/CCT Total # of Minutes Spent Total Time Spent with Patient: Total time spent is greater than 50% in coordination of care (as documented) at patient's floor/unit and/or counseling patient: Coding Level of Care Code 65994 Initial Inpt Care Lvl 3 Diagnoses Diabetes mellitus type 2, uncontrolled E11.65 Glycemic state: with hyperglycemia Hyperlipidemia E78.5 Hypertension I10 Elevated PSA R97.20 Pneumonia J18.9 Hypomagnesemia E83.42 Acute kidney injury N17.9 DVT prophylaxis Z29.9 Elevated bilirubin R17 (1) Diabetes mellitus type 2, uncontrolled Glycemic state: with hyperglycemia Qualified Code(s): E11.65 - Type 2 diabetes mellitus with hyperglycemia
[2021-03-02] MEDS: SODIUM CHLORIDE 0.9% 500 ML IV SCH ×3 (08:28→17:15)
[2021-03-02 09:30] LABS: Adenovirus PCR Not Detected (NotDetected); Bordetella parapertussis PCR Not Detected (NotDetected); Bordetella pertussis PCR Not Detected (NotDetected); Chlamydia pneumoniae PCR Not Detected (NotDetected); Coronavirus 229E PCR Not Detected (NotDetected); Coronavirus CoV-2 (COVID19)PCR Not Detected (NotDetected); Coronavirus HKU1 PCR Not Detected (NotDetected); Coronavirus NL63 PCR Not Detected (NotDetected); Coronavirus OC43PCR Not Detected (NotDetected); Human Metapneumovirus PCR Not Detected (NotDetected); Influenza A PCR Not Detected (NotDetected); Influenza B PCR Not Detected (NotDetected); Mycoplasma pneumoniae PCR Not Detected (NotDetected); Parainfluenza Virus 1 PCR Not Detected (NotDetected); Parainfluenza Virus 2 PCR Not Detected (NotDetected); Parainfluenza Virus 3 PCR Not Detected (NotDetected); Parainfluenza Virus 4 PCR Not Detected (NotDetected); Respiratory Syncytial VirusPCR Not Detected (NotDetected); Rhinovirus/Enterovirus PCR Not Detected (NotDetected)
--- NOTE | 2021-03-02 09:42 | XRay Report ---
XR chest 1V portable CLINICAL HISTORY: SEPSIS COMPARISON STUDY: February 06, 2017 FINDINGS: No pneumothorax. Moderate left pleural effusion is seen associated with atelectasis/infiltrate at the left base. Mild diffuse prominence of pulmonary interstitium is seen bilaterally. Cardiomediastinal silhouette is within normal limits in size and partially obscured on the left. No significant pulmonary vascular congestion.. Osseous structures: Degenerative changes of the spine. IMPRESSION: 1. Moderate left pleural effusion associated with atelectasis/infiltrate. ACT 112: Negative or not required by law. The above report was generated using voice recognition software. It may contain grammatical, syntax o r spelling errors. Electronically signed by: Katina Flynn DO 03/02/2021 9:41 AM
[2021-03-02] MEDS: MAGNESIUM SULFATE / D5W 1 GM/100 ML BAG IV SCH ×2 (10:31→12:19)
[2021-03-02] MEDS ORDERED: MoRPHine SULFATE 2 MG/ML CARP IV PRN (12:40)
[2021-03-02] MEDS ORDERED: GLUCAGON FOR INJ 1 MG VIAL SQ PRN (12:40)
[2021-03-02] MEDS ORDERED: ONDANSETRON INJ 2 MG/ML 2 ML VIAL IV PRN (12:40)
[2021-03-02] MEDS ORDERED: GLUCOSE 40% GEL 15 GM TUBE PO PRN (12:40)
[2021-03-02] MEDS ORDERED: POLYETHYLENE (MIRALAX) 17 GM PACK PO PRN (12:40)
[2021-03-02] MEDS ORDERED: DEXTROSE 50% 50 ML SYRINGE IV PRN (12:40)
[2021-03-02] MEDS ORDERED: MoRPHine SULFATE 4 MG/ML 1 ML CARP\\VIAL IV PRN (12:40)
[2021-03-02] MEDS ORDERED: CARBOHYDRATES FOR HYPOGLYCEMIA PO PRN (12:40)
[2021-03-02] MEDS ORDERED: INSULIN GLARGINE SOLOSTAR 100 UNITS/ML 3 ML PEN SC SCH ×2 (12:40→21:00)
[2021-03-02] MEDS ORDERED: PHARMACY GLYCEMIC MGMT CONSULT PRN (12:40)
[2021-03-02] MEDS ORDERED: GLUCOSE 10 TABS/TUBE PO PRN (12:40)
--- NOTE | 2021-03-02 13:20 | Electrocardiogram Report ---
Test Reason : Blood Pressure : / mmHG Vent. Rate : 091 BPM Atrial Rate : 091 BPM P-R Int : 162 ms QRS Dur : 088 ms QT Int : 336 ms P-R-T Axes : 013 019 011 degrees QTc Int : 413 ms Normal sinus rhythm Normal ECG When compared with ECG of 12-JUN-2017 07:47, No significant change was found Confirmed by Hernan Harris ([id number]) on 03/02/2021 1:20:13 PM Referred By: Confirmed By:William Harris
[2021-03-02] MEDS ORDERED: INSULIN HUMAN REGULAR PER UNIT 5 UNITS in SYRINGE 4.95 ML IV ONE (13:45)
[2021-03-02] MEDS: INSULIN ASPART 100 UNITS/ML 3 ML PEN SC SCH ×3 (14:43→21:58)
[2021-03-02] MEDS: EZETIMIBE 10 MG TABLET PO SCH (14:46)
[2021-03-02] MEDS: LOSARTAN POTASSIUM 25 MG TAB PO SCH (14:46)
[2021-03-02] MEDS: HEPARIN SOD 5,000 UNIT/0.5 ML VIAL SQ SCH ×2 (14:47→21:55)
--- NOTE | 2021-03-02 15:40 | CT Scan Report ---
CT chest diagnostic wo con CT DOSE: 694.07 mGycm CLINICAL HISTORY: 70 years-old Male with eval LLL for nefarious issues, check GB. Acute shortness of breath with sepsis and left lung base opacities TECHNIQUE: Multiaxial CT images of the chest were performed without contrast. A dose lowering techni que was utilized adhering to the principles of ALARA. COMPARISON: Chest radiograph of same day, CTA chest 06/12/2017 FINDINGS: 9 mm hypodense right thyroid nodule. The heart is upper limits of normal in size. Trace pericardial e ffusion. Moderate coronary artery calcifications. No thoracic aortic aneurysm. Mild descending thorac ic aortic tortuosity. No definitive pathologically enlarged lymph nodes identified. Evaluation howeve r is limited without the use of contrast. Moderate emphysema. No pneumothorax or overt pulmonary edema. 3 mm solid nodule of the right lower lo be, image 197 appears new from comparison. Mild bronchial wall thickening suggestive of bronchitis. M ild soft tissue fullness of the right hilum on image 113 series 4 without discrete lesion or adenopat hy identified. Irregular masslike left perihilar consolidation probably extends into the left lower l obe measuring 7.4 x 6.7 x 8.2 cm in AP, transverse and cranial caudal dimensions respectively which e ncases the adjacent lingula and left lower lobe bronchi. Associated multifocal opacification of the l eft lower lobe segmental and subsegmental bronchi. Consolidation of the basal segments left lower lob e with volume loss. Trace left pleural effusion. Mild consolidation of the inferior segment lingula. Decreased transverse dimension of the trachea. No pneumoperitoneum. Hepatosplenomegaly with hepatic steatosis. Unremarkable soft tissues. Degenerati ve changes of the shoulders and spine. No acute fracture or suspicious bone lesion. Surgical anchor o f the left proximal humerus. Healed chronic left-sided rib fractures. IMPRESSION: 1. Left perihilar masslike consolidation measures up to 8.2 cm and involves the left lower lobe encas ing and extending along the adjacent lingular and left lower lobe bronchi. This finding is suggestive of primary bronchogenic carcinoma. 2. Mild postobstructive pneumonitis of the left lower lobe and inferior segment lingula with trace le ft pleural effusion. 3. No pathologically enlarged lymph nodes identified. 4. Hepatosplenomegaly with hepatic steatosis. ACT 112: Negative or not required by law. Electronically signed by: Montez Alegre M.D. 03/02/2021 3:39 PM
[2021-03-02] MEDS: SODIUM CHLORIDE 0.9% 1000ML 1,000 ML IV SCH (18:11)
[2021-03-02] MEDS ORDERED: PIPERACILL/TAZOBAC CONSULT ACTIVE PRN (18:51)
[2021-03-02] MEDS ORDERED: PIPERACILLIN/TAZOBACTAM 4.5 GM in DEXTROSE 5% 100 ML IV SCH (19:00)
[2021-03-02] MEDS ORDERED: PIPERACILLIN/TAZOBACTAM 3.375 GM in DEXTROSE 5% 100 ML IV ONE (19:15)
--- NOTE | 2021-03-02 20:12 | Communication Note ---
Date of Service: March 02, 2021 Patient is here for PNA and blood cultures just grew gram-positive cocci in clusters (2/2 samples). Hemodynamically stable currently; was febrile to 38C at noon today. Already on Zosyn. Added Vancomycin for possible MRSA coverage. Would consider TTE in the AM, pending speciation.
[2021-03-02] MEDS ORDERED: VANCOMYCIN CONSULT ACTIVE PRN (20:33)
[2021-03-02] MEDS ORDERED: DAPTOmycin 475 MG in SYRINGE 0 ML IV SCH (21:00)
[2021-03-02] MEDS ORDERED: VANCOMYCIN HCL 2,500 MG in SODIUM CHLORIDE 0.9% 500 ML IV ONE (21:30)
[2021-03-02] MEDS: ROSUVASTATIN CALCIUM 5 MG TAB PO SCH (22:00)
[2021-03-03] MEDS: PIPERACILLIN/TAZOBACTAM 3.375 GM in DEXTROSE 5% 100 ML IV SCH ×4 (00:14→22:38)
[2021-03-03] MEDS: INSULIN ASPART 100 UNITS/ML 3 ML PEN SC SCH ×6 (00:15→20:50)
[2021-03-03] MEDS: SODIUM CHLORIDE 0.9% 1000ML 1,000 ML IV SCH ×3 (02:19→19:19)
[2021-03-03] MEDS: LOSARTAN POTASSIUM 25 MG TAB PO SCH (07:31)
[2021-03-03] MEDS: EZETIMIBE 10 MG TABLET PO SCH (07:31)
[2021-03-03] MEDS: HEPARIN SOD 5,000 UNIT/0.5 ML VIAL SQ SCH ×2 (07:31→20:48)
[2021-03-03 08:15] LABS: Estimated Average Glucose 226 mg/dl; Hemoglobin A1C 9.5 % (4.5-5.6)
[2021-03-03 08:23] LABS: Albumin Level 2.4 gm/dl (3.4-5.0); BUN Creatinine Ratio 21.3 (10-20); Bilirubin Direct 0.8 mg/dl (0-0.2); Bilirubin,Total 1.5 mg/dl (0.2-1); Est GFR (Non-African American) 70.8 ml/min; Potassium 3.7 mmol/L (3.5-5.1); Total Protein 6.2 gm/dl (6.4-8.2)
[2021-03-03] MEDS ORDERED: levoFLOXacin/D5W 750 MG/150 ML BAG IV SCH (09:00)
[2021-03-03] MEDS ORDERED: INSULIN GLARGINE SOLOSTAR 100 UNITS/ML 3 ML PEN SC SCH ×2 (09:00→21:00)
--- NOTE | 2021-03-03 11:24 | Pulmonary Consultation ---
Date of Consultation March 03, 2021 Assessment & Plan (1) Abnormal CT scan of lung: (2) Lung mass: (3) Pneumonia: Laterality: left Lung location: lower lobe of lung Pneumonia type: due to unspecified organism Qualified Code(s): J18.9 - Pneumonia, unspecified organism Impression: 70-year-old male admitted with multiple systemic complaints found to have an abnormal chest x-ray and an 8 cm left lower lobe mass on CT scan. Pattern is concerning for bronchogenic malignancy. Recommendations: 1. Reviewed images independently with the hospitalist and with the patient. We reviewed diagnostic options to include watchful waiting versus proceeding with bronchoscopy. As the probability of cancer is high I would favor proceeding with bronchoscopy with endobronchial ultrasound to clear the mediastinum today. He is n.p.o. and his coagulation panel is appropriate. He was presented the risks and benefits of sedation as well as bronchoscopy and agrees to proceed. We will get him on the schedule for later this afternoon. 2. Depending on pathology, the patient will likely require additional imaging studies including a PET scan which can be accomplished as an outpatient as well as an MRI of the brain with contrast. 3. The patient does have what appears to be a focal area of gas at one of the sternocostal regions. Unclear if this is summation of values or if it represents true gas. There are no physical exam findings to correlate. Given his bacteremic status, infection is not excluded. Defer to primary team. Antibiotics per PCM. Follow-up with path results once available. Questions were answered to the best my ability. The patient expressed understanding and is in agreement with the plan as outlined History of Present Illness Attending Physician: Payam Mclean MD History of Present Illness Asked by hospitalist to evaluate this patient with an abnormal CT scan. History is hospitalist as well as review of electronic medical record and interview the patient at bedside. The patient is a 70-year-old male with about a 20+ pack year history of tobacco exposure. He primarily smokes cigars and has been doing so for 20 to 30 years. He quit smoking 5 days prior to admission. He presented with a variety of complaints including altered sensorium, subjective fevers nausea vomiting and diarrhea. He had an x-ray which was abnormal and was followed up with a CT scan which demonstrated an 8 cm left lower lobe mass. He denies cough or hemoptysis. He believes his last chest x-ray was performed for 5 years ago. He is not had any unintentional weight loss. No family history of lung cancer that he is aware of Allergies Allergy/AdvReac Type Severity Reaction Status Date / Time peanut Allergy Severe Anaphylaxis Unverified 03/02/21 08:35 VANDA Inhibitors Allergy Unknown reaction Verified 03/02/21 08:35 unknown capsaicin Allergy Unknown unknown Verified 03/02/21 08:35 reaction celecoxib Allergy Unknown pruritis Verified 03/02/21 08:35 diclofenac Allergy Unknown unknown Verified 03/02/21 08:35 reaction Diclopak Allergy Unknown unknown Verified 12/13/17 10:15 reaction Ziwcqux-Qbr-Xkp Reductase AdvReac Unknown myalgias Verified 03/02/21 08:35 Inhibitor Home Medications Medication Instructions Recorded Confirmed Type ibuprofen 200 mg tablet (Advil) 400 mg PO Q4H tab 04/29/19 03/02/21 History blood sugar diagnostic (OneTouch #100 ea 11/18/20 Rx Verio test strips) blood-glucose meter (OneTouch #1 ea 11/18/20 Rx Verio Meter) insulin glargine 100 unit/mL (3 35 unit SUBCUT QAM 90 Days #45 ml 11/18/20 03/02/21 Rx mL) subcutaneous pen (Lantus Solostar U-100 Insulin) lancets (OneTouch UltraSoft #200 ea 11/18/20 Rx Lancets) pen needle, diabetic 29 gauge x #100 ea 11/18/20 11/18/20 Rx 1/2" (BD Ultra-Fine Original Pen Needle) ezetimibe 10 mg tablet (Zetia) 10 mg PO QAM 03/02/21 03/02/21 History losartan 25 mg tablet 25 mg PO QAM 03/02/21 03/02/21 History pioglitazone 45 mg tablet 45 mg PO QAM 03/02/21 03/02/21 History rosuvastatin 5 mg tablet 5 mg PO QAM 03/02/21 03/02/21 History Patient History Medical History (Updated 03/03/21 @ 11:22 by Raymond Howard MD) Knee pain, right Left sided chest pain Polycythemia vera Right flank pain Surgical History H/O total knee replacement History of arthroscopy of right knee History of dermoid cyst excision History of shoulder surgery Status post biopsy of skin Family History Father Kidney disease Social History Smoking Status: Current every day smoker Tobacco Type: Cigars Cigarettes Per Day: 2-3/day; Smoking End Date: 02/27/21; Second Hand Exposure: Yes (father); Do You Dip or Chew Tobacco: No; Hx Alcohol Use: Yes Alcohol type: beer and hard liquor Hx Substance Use: No Preferred Language: Cook Islander Communication Ability: Effective Beliefs That Will Affect Care: None marital status: Current Living Situation: Spouse current occupational status: retired Other Information That Helps Us Care for You: No Feels Safe at Home: Yes Assistive Devices: Denture - Upper and Denture - Lower Review of Systems Review of Systems: All systems reviewed & are unremarkable except as noted in HPI & below Physical Exam Constitutional: WD/WN, vitals as above ENMT: Mallampati Class: II Neck: trachea midline, no thyromegaly Respiratory: normal respiratory effort, lungs clear to auscultation Cardiovascular: RRR, no murmur, no edema Gastrointestinal (Abdomen): normal bowel sounds, soft, nontender, no hepato splenomegaly Musculoskeletal: Extremities: extremities normal to inspection Skin: no rashes, warm and dry Neurologic: Nonfocal exam Lymphatic: no cervical lymphadenopathy Results & Data Results & Data ([facility]) Vital Signs (Past 12 Hours) Vital Signs Temp Pulse Resp BP Pulse Ox 03/03/21 07:28 37.2 C 72 16 131/71 94 Laboratory Results 03/02/21 06:05 03/03/21 06:55 INR is normal Diagnostic Findings Imaging was independently reviewed. CT chest diagnostic wo con 03/02/21 CT DOSE: 694.07 mGycm CLINICAL HISTORY: 70 years-old Male with eval LLL for nefarious issues, check GB. Acute shortness of breath with sepsis and left lung base opacities TECHNIQUE: Multiaxial CT images of the chest were performed without contrast. A dose lowering technique was utilized adhering to the principles of ALARA. COMPARISON: Chest radiograph of same day, CTA chest 06/12/2017 FINDINGS: 9 mm hypodense right thyroid nodule. The heart is upper limits of normal in size. Trace pericardial effusion. Moderate coronary artery calcifications. No thoracic aortic aneurysm. Mild descending thoracic aortic tortuosity. No definitive pathologically enlarged lymph nodes identified. Evaluation however is limited without the use of contrast. Moderate emphysema. No pneumothorax or overt pulmonary edema. 3 mm solid nodule of the right lower lobe, image 197 appears new from comparison. Mild bronchial wall thickening suggestive of bronchitis. Mild soft tissue fullness of the right hilum on image 113 series 4 without discrete lesion or adenopathy identified. Irregular masslike left perihilar consolidation probably extends into the left lower lobe measuring 7.4 x 6.7 x 8.2 cm in AP, transverse and cranial caudal dimensions respectively which encases the adjacent lingula and left lower lobe bronchi. Associated multifocal opacification of the left lower lobe segmental and subsegmental bronchi. Consolidation of the basal segments left lower lobe with volume loss. Trace left pleural effusion. Mild consolidation of the inferior segment lingula. Decreased transverse dimension of the trachea. No pneumoperitoneum. Hepatosplenomegaly with hepatic steatosis. Unremarkable soft tissues. Degenerative changes of the shoulders and spine. No acute fracture or suspicious bone lesion. Surgical anchor of the left proximal humerus. Healed chronic left-sided rib fractures. IMPRESSION: 1. Left perihilar masslike consolidation measures up to 8.2 cm and involves the left lower lobe encasing and extending along the adjacent lingular and left lower lobe bronchi. This finding is suggestive of primary bronchogenic carcinoma. 2. Mild postobstructive pneumonitis of the left lower lobe and inferior segment lingula with trace left pleural effusion. 3. No pathologically enlarged lymph nodes identified. 4. Hepatosplenomegaly with hepatic steatosis. PG Care Time/CCT Total # of Minutes Spent Total Time Spent with Patient: Total time spent is greater than 50% in coordination of care (as documented) at patient's floor/unit and/or counseling patient: Coding Level of Care Code 03861 Initial Inpt Care Lvl [address] scan of lung R91.8 Lung mass R91.8 Pneumonia J18.9 Laterality: left Lung location: lower lobe of lung Pneumonia type: due to unspecified organism
[2021-03-03] MEDS ORDERED: MIDAZOLAM HCL 5 MG/ML 1 ML VIAL ONE ×3 (12:27→13:10)
[2021-03-03] MEDS ORDERED: fentaNYL citrate 100 MCG/2 ML VIAL ONE ×2 (12:28→13:10)
--- NOTE | 2021-03-03 12:43 | Pharmacy Report ---
Pharmacy Glycemic Short Note 2 - Date of Service March 03, 2021 - Glycemic Short BSG Results (Last 24 hours): 03/02/21 03/02/21 03/02/21 13:22 17:16 20:38 Glucose POC Glucose 359 H* 214 H 190 H 03/02/21 03/03/21 03/03/21 23:54 04:07 06:55 Glucose 161 H POC Glucose 158 H 171 H 03/03/21 03/03/21 09:03 12:03 Glucose POC Glucose 201 H 148 H OUTPATIENT ANTIDIABETIC REGIMEN: * Lantus 35 units SQ qam * Pioglitazone 45 mg qAM ASSESSMENT: * Yaya is a 70 yo uncontrolled T2DM admitted with suspected pneumonia and staph bacteremia * Pharmacy consulted on 03/02 due to severe hyperglycemia. At this time, labs did not indicate DKA or HHS. Patient had already taken his full dose of basal insulin in the morning. A conservative basal insulin scale was added for HS, novololg was tightened and an IV regular insulin 5 unit bolus was ordered. * Fasting BSG this morning remains elevated but has improved greatly. Will continue to titrate Lantus, although dose for this morning will actually be decreased today for NPO status. * Current novolog order appears to be working well; post prandial BSGs trended downward yesterday PLAN FOR INPATIENT GLYCEMIC CONTROL: * Hold outpatient oral diabetes medications * Basal insulin * Lantus 30 units SQ this morning * Lantus 0-5 units SQ tonight (for BSG > 140 mg/dL) * Bolus insulin * NovoLog per scale ACHS or Q6hrs while NPO * Goal Range: Low 110 mg/dL - High 140 mg/dL * Correction Factor: 20 mg/dL/unit * Nutritional / Prandial insulin per carb ratio of 1 unit per 9 grams CHO consumed PLAN FOR DISCHARGE: * A1c = 9.5% (decreased from 11.9% in October 2020) * recs TBD
--- NOTE | 2021-03-03 12:45 | Pre Anesthesia Assessment ---
Date of Service March 03, 2021 Pre Sedation Assessment Vital Signs Temp Pulse Resp BP BP Pulse Ox 03/03/21 07:28 37.2 C 72 16 131/71 94 03/02/21 22:38 37.7 C H 74 18 93/56 L 94 03/02/21 15:46 37.2 C 81 18 112/71 97 Pre-Sedation Airway Assessment Smoking Status: Current every day smoker Hx Sleep Apnea: No Short, Thick Neck: No Thyromental Distance: > or= 3.5 Finger Breadths Oral Cavity: + Dentures Mallampati Class: III ASA: ASA2 NPO Status Date of Last Intake of Fluids: 03/03/21 Time of Last Intake of Fluids: 09:00 Last Oral Intake of Fluids Comment: SIPS WITH MEDS Date of Last Intake of Solid Food: 03/03/21 Time of Last Intake of Solid Foods: 00:00 Notes The planned sedation has been discussed with the patient. Informed Consent was obtained. I have identified the patient, determined the appropriateness of sedation and have assessed the patient immediately prior to the procedure. All medicine(s) and interventions are by my order.
--- NOTE | 2021-03-03 13:39 | Procedure Note ---
Procedure Note Date of Service March 03, 2021 Note Procedure: Fiberoptic bronchoscopy Endobronchial ultrasound evaluation during bronchoscopy Endobronchial ultrasound with transbronchial needle aspiration of lymph nodes Conscious sedation Provider: Raymond Howard MD Consent: Signed by patient and timeout verified prior to procedure. Sedation start:1251 Sedation end:1325 Conscious sedation: 200 mcg fentanyl, 10 mg Versed, topical lidocaine per RT protocol Indication: Abnormal CT scan. Procedure: Patient was brought to the bronchoscopy suite. Consent was verified. Appropriate radiographic studies had been reviewed prior to the procedure. Standard monitoring was applied. Oxygen was administered. After topical anesthesia of the airways per respiratory therapy protocol, the fiberoptic scope was advanced through the oropharynx via the bite block. Oropharynx was unremarkable. Vocal cords were visualized and were visualized and normal in function and appearance. Topical anesthesia of the cords was achieved with instillation of lidocaine through the scope. Scope was then passed through the vocal cords. The trachea was midline. Main arthur was sharp. Anesthesia of the lower airways was achieved with instillation of lidocaine through the scope. A sequential and systematic examination of the lower airways was conducted. The right-sided airways were widely patent with normal anatomic configuration and the mucosa appeared normal. Left-sided airways were abnormal. The left mainstem bronchus was patent and normal as was the takeoff to the left upper lobe and lingula. There were significant bloody secretions emanating from the left lower lobe bronchus. After extensive saline lavage, we were able to clear the airway enough to briefly visualize a polypoid endobronchial lesion which was bleeding. This appeared to be originating just opposite to the takeoff to the superior segment but cannot exclude that the superior segment may have been involved as well. The mucosa was very friable in the left lower lobe and required instillation of chilled saline to try and achieve hemostasis. After the inspection bronchoscopy was completed, the endobronchial ultrasound was advanced through the bite block after the fiberoptic scope was removed. A sequential examination of lymph node stations including 2R, 2L, 4R, 4L, 10/11 R and 7 was conducted. No significant suspicious mediastinal adenopathy was identified in the stations. The scope was then advanced into the left mainstem bronchus. A soft tissue mass/lymph node was identified in the L 10 station. Under direct ultrasound guidance and using a 21-gauge needle, the mass/lymph node was aspirated. Rapid onsite cytologic evaluation was available and deemed the specimen to be adequate. There was significant necrosis identified. Total of 8 or 9 passes of the lymph node was taken to ensure adequate cytologic material in the rinse. After adequate material was achieved, the scope was withdrawn to the left mainstem and additional chilled saline was instilled to confirm hemostasis. Once hemostasis was confirmed, the scope was withdrawn. The patient tolerated the procedure well without obvious complication. Patient was returned to the recovery room. Of note the patient did have evidence of sleep disordered breathing with sedation and outpatient polysomnography may be considered Impression: 1. Abnormal inspection bronchoscopy with polypoid mass extending in the takeoff of the left lower lobe with which was significantly friable and bled with any significant manipulation. 2. No suspicious mediastinal or contralateral hilar adenopathy identified on endobronchial ultrasound survey. 3. Soft tissue mass/lymph node in the L 10 station which was biopsied. Results are pending but suspicious for malignancy. 4. High probability for sleep disordered breathing Coding CPT Codes Sedation/Anesthesia - Sedation/Anesthesia: 51850 Mod Sedation by the same physician;Init15 Min Child Age 5 & Up ([id number]) Sedation/Anesthesia - Sedation/Anesthesia: 49036 Mod Sedation by the same physician; Ea [id number] Minutes ([id number]) Pulmonary/Thoracic - Pulmonary and Thoracic: 55304 Dx bronchoscopy/wash ([id number]) Pulmonary/Thoracic - Pulmonary and Thoracic: 51695 Bronchoscopy, w/EBUS add on ([id number]) Pulmonary/Thoracic - Pulmonary and Thoracic: 17732 Bronchoscopy, w/EBUS 1 or 2 mediastinal ([id number]) [facility] [place] Procedure Codes (Charges) Pulmonary/Thoracic Procedure 1: Pulmonary and Thoracic: 36853 Dx bronchoscopy/wash Procedure 2: Pulmonary and Thoracic: 65138 Bronchoscopy, w/EBUS add on Procedure 3: Pulmonary and Thoracic: 24110 Bronchoscopy, w/EBUS 1 or 2 mediastinal Sedation/Anesthesia Procedure 4: Sedation/Anesthesia: 50252 Mod Sedation by the same physician;Init15 Min Child Age 5 & Up Procedure 5: Sedation/Anesthesia: 29949 Mod Sedation by the same physician; Ea [id number] Minutes (34)
--- NOTE | 2021-03-03 17:37 | Hospitalist Progress Note ---
Date of Service March 03, 2021 Assessment & Plan (1) Pneumonia: Plan: Patient with hyperglycemia from physiological stressor and having left lower lobe infiltrate with low-grade temperature. He does not have leukocytosis. The patient was started on levofloxacin in the ER and blood cultures were obtained. With MSSA blood cultures positivity Zosyn was chosen. Zosyn will be continued due to a postobstructive pneumonia felt to be present CT chest 03/02/2021 IMPRESSION: 1. Left perihilar masslike consolidation measures up to 8.2 cm and involves the left lower lobe encasing and extending along the adjacent lingular and left lower lobe bronchi. This finding is suggestive of primary bronchogenic carcinoma. 2. Mild postobstructive pneumonitis of the left lower lobe and inferior segment lingula with trace left pleural effusion. 3. No pathologically enlarged lymph nodes identified. 4. Hepatosplenomegaly with hepatic steatosis. Bronchoscopy performed 03/03/[address] Raymond Howard samples are pending, with high suspicion of malignancy further staging with MRI of the brain is ordered currently no suggestion of disease in the liver as seen on CT scan chest. (2) Diabetes mellitus type 2, uncontrolled: Plan: Patient had marked hyperglycemia with uncontrolled diabetes she is on basal bolus insulin glycemic management. His elevated glucose likely influences his hyponatremia which is present on admission glucoses have improved diabetes is uncontrolled based upon his outpatient hemoglobin A1c. Although the patient elevated beta hydroxybutyric acid clinically he was on a diabetic ketoacidosis and was not treated as such (3) Acute kidney injury: Plan: Patient has acute kidney injury likely from dehydration from his hyperglycemia. This has resolved and patient returns to chronic kidney disease is stage III which likely requires renal dose adjustments for his antibiotics. (4) Hypomagnesemia: Plan: Significant on presentation will be replete with 3 g of magnesium (5) Hyperlipidemia: Plan: Continues rosuvastatin (6) Hypertension: Plan: Continues on losartan which is likely renal protective (7) Elevated PSA: Plan: Patient's PSA was checked 1 year ago it was 5, he does not follow with urology he has discussed this with his primary care and does not want referral to urology (8) Elevated bilirubin: Plan: Patient is elevated bilirubin and mild elevation in transaminases at this time Recheck of bilirubin shows favorable trend downward (9) DVT prophylaxis: Plan: Heparin for DVT prevention given renal dysfunction Admission and Anticipated Discharge Date Admission Date: March 02, 2021 Subjective Patient doing well today still seemingly shocked about the possible diagnosis of cancer. Having low-grade temperatures post bronchoscopy. Bleeding friable mass with complete obstruction of bronchus in the left lung was seen on bronchoscopy. Patient found to be bacteremic with MSSA Review of Systems Review of Systems: Mild distress and fatigue no headache, no visual changes no speech or swallowing issues no chest pain, pressure or palpitations no shortness of breath,non productive cough no abdominal pain, nausea or vomiting, diarrhea or constipation no dysuria, hematuria or frequency no focal joint pain or swelling no back pain, CVA tenderness or radicular pain no bruising, bleeding or rashes no focal signs of weakness or numbness or altered sensation no complaints of anxiety or depression.. Physical Exam Physical Exam: The patient appeared well nourished and normally developed. Vital signs as documented. he is not jaundiced Head exam is normocephalic atraumatic Neck is without JVD, thyromegaly, or carotid bruits. Lungs are with abscent breath sounds left base Cardiac exam, Rhythm is regular.. No murmurs, rubs or gallops. Abdominal exam reveals normal bowel sounds, soft non tender, no masses Extremities are nonedematous and both pedal pulses are present Neurologic exam is alert and oriented, no focal loss of strength or sensation Skin is without bruises or rashes Psychologically is without concerns for anxiety or depression Results & Data Results & Data ([facility]) Vital Signs (Past 12 Hours) Vital Signs Temp Pulse Pulse Pulse Resp BP BP 03/03/21 17:25 102.9 F H 83 16 129/72 03/03/21 16:31 99.0 F 79 16 108/66 03/03/21 15:25 99.7 F H 82 16 120/69 03/03/21 14:55 98.1 F 81 16 144/75 H 03/03/21 14:25 98.2 F 85 16 117/66 03/03/21 14:00 98.4 F 87 86 18 110/60 03/03/21 13:48 88 24 111/64 03/03/21 13:45 98.2 F 87 87 18 105/58 L 03/03/21 13:30 98.4 F 89 87 85 18 122/63 03/03/21 13:25 87 30 H 117/56 L 03/03/21 13:20 88 26 H 110/64 03/03/21 13:15 90 20 113/68 03/03/21 13:10 90 20 126/68 03/03/21 13:05 79 16 124/66 03/03/21 13:00 83 16 125/65 03/03/21 12:55 75 16 112/71 03/03/21 12:51 77 16 152/72 H 03/03/21 12:46 77 16 140/73 03/03/21 07:28 99.0 F 72 16 131/71 Pulse Ox 03/03/21 17:25 91 03/03/21 16:31 98 03/03/21 15:25 99 03/03/21 14:55 98 03/03/21 14:25 95 03/03/21 14:00 93 03/03/21 13:48 94 03/03/21 13:45 93 03/03/21 13:30 93 03/03/21 13:25 92 03/03/21 13:20 91 03/03/21 13:15 93 03/03/21 13:10 96 03/03/21 13:05 96 03/03/21 13:00 96 03/03/21 12:55 100 03/03/21 12:51 100 03/03/21 12:46 97 03/03/21 07:28 94 PG Care Time/CCT Total # of Minutes Spent Total Time Spent with Patient: Total time spent is greater than 50% in coordination of care (as documented) at patient's floor/unit and/or counseling patient: Coding Level of Care Code 31789 Subseq Hosp Care Lvl 3 Diagnoses Pneumonia J18.9 Diabetes mellitus type 2, uncontrolled E11.65 Glycemic state: with hyperglycemia Acute kidney injury N17.9 Hypomagnesemia E83.42 Hyperlipidemia E78.5 Hypertension I10 Elevated PSA R97.20 Elevated bilirubin R17 DVT prophylaxis Z29.9 (1) Diabetes mellitus type 2, uncontrolled Glycemic state: with hyperglycemia Qualified Code(s): E11.65 - Type 2 diabetes mellitus with hyperglycemia
[2021-03-03] MEDS: ACETAMINOPHEN 325 MG TAB PO PRN (17:50)
[2021-03-03] MEDS ORDERED: VANCOMYCIN HCL 1,500 MG in SODIUM CHLORIDE 0.9% 500 ML IV SCH (18:00)
[2021-03-03] MEDS: ROSUVASTATIN CALCIUM 5 MG TAB PO SCH (20:48)
[2021-03-04] MEDS: SODIUM CHLORIDE 0.9% 1000ML 1,000 ML IV SCH ×2 (00:14→10:09)
[2021-03-04] MEDS: PIPERACILLIN/TAZOBACTAM 3.375 GM in DEXTROSE 5% 100 ML IV SCH ×3 (06:02→23:04)
[2021-03-04] MEDS: HEPARIN SOD 5,000 UNIT/0.5 ML VIAL SQ SCH ×2 (07:15→21:19)
[2021-03-04] MEDS: EZETIMIBE 10 MG TABLET PO SCH (07:15)
[2021-03-04] MEDS: LOSARTAN POTASSIUM 25 MG TAB PO SCH (07:16)
--- NOTE | 2021-03-04 08:16 | Hospitalist Progress Note ---
Date of Service March 04, 2021 Assessment & Plan (1) Gram-positive bacteremia: Plan: Pt now with 4 of 4 blood cultures with gram positive, on zosyn to cover urine and also post obstructive pneumonia. Transthoracic echo did not show vegetations, however if continues with fever may compell a ELI, recheck cultures 03/05 and add esr (2) Pneumonia: Plan: Patient with hyperglycemia from physiological stressor and having left lower lobe infiltrate with low-grade temperature. He does not have leukocytosis. The patient was started on levofloxacin in the ER and blood cultures were obtained. With MSSA blood cultures positivity Zosyn was chosen. Zosyn will be continued due to a postobstructive pneumonia felt to be present, however the pt has a confirmed staph MSSA urine culture so has both pneumonia and staph uti CT chest 03/02/2021 IMPRESSION: 1. Left perihilar masslike consolidation measures up to 8.2 cm and involves the left lower lobe encasing and extending along the adjacent lingular and left lower lobe bronchi. This finding is suggestive of primary bronchogenic carcinoma. 2. Mild postobstructive pneumonitis of the left lower lobe and inferior segment lingula with trace left pleural effusion. 3. No pathologically enlarged lymph nodes identified. 4. Hepatosplenomegaly with hepatic steatosis. Bronchoscopy performed 03/03/[address] Raymond Howard samples are pending, with high suspicion of malignancy further staging with MRI of the brain is ordered currently no suggestion of disease in the liver as seen on CT scan chest. (3) UTI (urinary tract infection): Plan: MSSA uti cultured, treated with Zosyn at present due to concern for post obstuctive pneuomina (4) Diabetes mellitus type 2, uncontrolled: Plan: Patient had marked hyperglycemia with uncontrolled diabetes she is on basal bolus insulin glycemic management. His elevated glucose likely influences his hyponatremia which is present on admission glucoses have improved diabetes is uncontrolled based upon his outpatient hemoglobin A1c. Although the patient elevated beta hydroxybutyric acid clinically he was on a diabetic ketoacidosis and was not treated as such (5) Acute kidney injury: Plan: Patient has acute kidney injury likely from dehydration from his hyperglycemia. This has resolved and patient returns to chronic kidney disease is stage III which likely requires renal dose adjustments for his antibiotics. (6) Hypomagnesemia: Plan: Significant on presentation will be replete with 3 g of magnesium (7) Hyperlipidemia: Plan: Continues rosuvastatin (8) Hypertension: Plan: Continues on losartan which is likely renal protective (9) Elevated PSA: Plan: Patient's PSA was checked 1 year ago it was 5, he does not follow with urology he has discussed this with his primary care and does not want referral to urology (10) Elevated bilirubin: Plan: Patient is elevated bilirubin and mild elevation in transaminases at this time Recheck of bilirubin shows favorable trend downward (11) DVT prophylaxis: Plan: Heparin for DVT prevention given renal dysfunction Admission and Anticipated Discharge Date Admission Date: March 02, 2021 Subjective pt examined in the presence of his , seems to minimize his distress, persistently positive blood cultures, 10/23 now last from 03/03, will recheck on as is persistently febrile also Review of Systems Review of Systems: Mild distress and fatigue no headache, no visual changes no speech or swallowing issues no chest pain, pressure or palpitations no shortness of breath,non productive cough no abdominal pain, nausea or vomiting, diarrhea or constipation no dysuria, hematuria or frequency no focal joint pain or swelling no back pain, CVA tenderness or radicular pain no bruising, bleeding or rashes no focal signs of weakness or numbness or altered sensation no complaints of anxiety or depression.. Physical Exam Physical Exam: The patient appeared well nourished and normally developed. Vital signs as documented. he is not jaundiced Head exam is normocephalic atraumatic Neck is without JVD, thyromegaly, or carotid bruits. Lungs are with abscent breath sounds left base Cardiac exam, Rhythm is regular.. No murmurs, rubs or gallops. Abdominal exam reveals normal bowel sounds, soft non tender, no masses Extremities are nonedematous and both pedal pulses are present Neurologic exam is alert and oriented, no focal loss of strength or sensation Skin is without bruises or rashes Psychologically is without concerns for anxiety or depression Results & Data Results & Data ([facility]) Vital Signs (Past 12 Hours) Vital Signs Temp Pulse Resp BP Pulse Ox 03/04/21 06:25 98.8 F 72 16 116/68 93 03/03/21 21:44 99.3 F 70 16 104/65 94 PG Care Time/CCT Total # of Minutes Spent Total Time Spent with Patient: Total time spent is greater than 50% in coordination of care (as documented) at patient's floor/unit and/or counseling patient: Coding Level of Care Code 21110 Subseq Hosp Care Lvl 3 Diagnoses Pneumonia J18.9 Diabetes mellitus type 2, uncontrolled E11.65 Glycemic state: with hyperglycemia Acute kidney injury N17.9 Hypomagnesemia E83.42 Hyperlipidemia E78.5 Hypertension I10 Elevated PSA R97.20 Elevated bilirubin R17 DVT prophylaxis Z29.9 UTI (urinary tract infection) N39.0 Gram-positive bacteremia R78.81 (1) Diabetes mellitus type 2, uncontrolled Glycemic state: with hyperglycemia Qualified Code(s): E11.65 - Type 2 diabetes mellitus with hyperglycemia
[2021-03-04 08:42] LABS: Albumin Level 2.4 gm/dl (3.4-5.0); BUN Creatinine Ratio 18.7 (10-20); Bilirubin Direct 1.2 mg/dl (0-0.2); Bilirubin,Total 1.9 mg/dl (0.2-1); Calcium 8.5 mg/dl (8.5-10.1); Creatinine Clr Calc Pharmacy 92.6 ml/min; Est GFR (African American) 93.6 ml/min; Est GFR (Non-African American) 80.8 ml/min; Magnesium 2.1 mg/dl (1.8-2.4); Potassium 3.8 mmol/L (3.5-5.1); Total Protein 6.3 gm/dl (6.4-8.2)
[2021-03-04] MEDS ORDERED: INSULIN GLARGINE SOLOSTAR 100 UNITS/ML 3 ML PEN SC SCH ×2 (09:00→11:30)
[2021-03-04] MEDS: INSULIN ASPART 100 UNITS/ML 3 ML PEN SC SCH ×4 (09:23→21:19)
--- NOTE | 2021-03-04 09:58 | Pharmacy Report ---
Pharmacy Glycemic Short Note 2 - Date of Service March 04, 2021 - Glycemic Short BSG Results (Last 24 hours): 03/03/21 03/03/21 03/03/21 09:03 12:03 17:03 Glucose POC Glucose 201 H 148 H 147 H 03/03/21 03/04/21 03/04/21 20:42 07:57 08:01 Glucose 141 H POC Glucose 149 H 146 H OUTPATIENT ANTIDIABETIC REGIMEN: * Lantus 35 units SQ qam * Pioglitazone 45 mg qAM ASSESSMENT: 03/04 * Pt has received 46 units of insulin over the past 24hrs * 35 units of basal with Lantus * 11 units of bolus with NovoLog * BSGs [phone] mg/dl * Pt NPO yesterday - regimen weighted towards basal insulin d/t no CHO coverage given * BSGs well controlled with 40 units of basal (given 03/02) while NPO (03/03) indicating that ~40 units is true basal insulin needs. Will increase Lantus to 40 units daily in AM * Will change CF/CR slightly to correlate with estimated basal of ~ 40 units/day 03/03 * Yaya is a 70 yo uncontrolled T2DM admitted with suspected pneumonia and staph bacteremia * Pharmacy consulted on 03/02 due to severe hyperglycemia. At this time, labs did not indicate DKA or HHS. Patient had already taken his full dose of basal insulin in the morning. A conservative basal insulin scale was added for HS, novololg was tightened and an IV regular insulin 5 unit bolus was ordered. * Fasting BSG this morning remains elevated but has improved greatly. Will continue to titrate Lantus, although dose for this morning will actually be decreased today for NPO status. * Current novolog order appears to be working well; post prandial BSGs trended downward yesterday PLAN FOR INPATIENT GLYCEMIC CONTROL: * Hold outpatient oral diabetes medications * Basal insulin * Lantus 40 units SQ daily in AM * DC HS dosing of Lantus as patient only takes Lantus once daily in AM as an outpatient * Bolus insulin: CF/CR based on estimated basal of 40 units * NovoLog per scale ACHS or Q6hrs while NPO * Goal Range: Low 110 mg/dL - High 140 mg/dL * Correction Factor: 20 mg/dL/unit * Nutritional / Prandial insulin per carb ratio of 1 unit per 7 grams CHO consumed PLAN FOR DISCHARGE: * A1c = 9.5% (decreased from 11.9% in October 2020) * Less stringent A1c goal of <8% likely acceptable based on age/co- morbidities * Not sure if patient has tried Metformin in the past. This would be an acceptable option to add at DC to help minimize insulin dosing to promote weight loss. (B12 supplementation may be necessary with group home metformin) * FDA has revised the label for metformin to reflect its safety in patients w ith eGFR 30 mL/min or above * May consider DC Pioglitazone; Pioglitazone may increase the risk for new primary malignancy, specifically bladder cancer but may not be the best option with possible new cancer diagnosis. * Outpatient basal insulin of Lantus 35 units SQ daily in AM correlates well with inpatient needs while NPO. Most likely no changes needed to basal insulin * Could consider adding prandial insulin vs GLP-1 at DC to achieve goal A1c of <8%
[2021-03-04] MEDS ORDERED: GADOBUTROL 65ML VIAL IV ONE (11:30)
--- NOTE | 2021-03-04 12:09 | Magnetic Resonance Report ---
MR brain wo/w con HISTORY: 70 years-old Male has new lung mass ? lung ca, eval brain for mets acute weakness with dizz iness COMPARISON: None TECHNIQUE: Multiplanar multisequence MRI of the brain was obtained both with and without the use of 1 0.9 mL Gadavist FINDINGS: The test desk trouble locator localizer images demonstrate no gross extracranial abnormality. Motion degraded exam. There is no restricted diffusion to suggest acute or subacute infarct. No acute intracranial hemorrha ge, midline shift, abnormal extra-axial collection, hydrocephalus or intracranial mass. No pathologic blooming artifact. Age-related involutional changes. Mild patchy white matter T2/FLAIR hyperintensit ies are suggestive of chronic microvascular ischemic disease. There is no abnormal intra-axial or ext ra-axial enhancement. The cerebral venous sinuses and major arterial flow voids appear patent. Trace left mastoid effusion. Mild mucosal thickening of the maxillary and ethmoid sinuses. The skull, orbits and soft tissues are unremarkable. IMPRESSION: 1. No acute intracranial abnormality. 2. No abnormal enhancement to suggest intracranial metastatic disease. ACT 112: Negative or not required by law. The above report was generated using voice recognition software. It may contain grammatical, syntax o r spelling errors. Electronically signed by: Montez Alegre M.D. 03/04/2021 12:08 PM
--- NOTE | 2021-03-04 12:56 | Pulmonology Progress Note ---
Date of Service March 04, 2021 Assessment & Plan (1) Abnormal CT scan of lung: (2) Lung mass: (3) Pneumonia: Laterality: left Lung location: lower lobe of lung Pneumonia type: due to unspecified organism Qualified Code(s): J18.9 - Pneumonia, unspecified organism Plan: Impression: 70-year-old male admitted with multiple systemic complaints found to have an abnormal chest x-ray and an 8 cm left lower lobe mass on CT scan. Pattern is concerning for bronchogenic malignancy. Patient is status post bronchoscopy with endobronchial ultrasound 03/03/2021. Findings included an exophytic polypoid mass nearly occluding the left lower lobe bronchus which was extremely friable and bled easily. No significant mediastinal or contralateral hilar nodes identified. There was a significant soft tissue mass/node at the left hilum which was biopsied and preliminary results are concerning for malignancy. Recommendations: 1. Possible lung cancer: Results reviewed with the patient. He was advised that this likely represents a lung cancer. Final path should be available early next week. His MRI of the brain is negative. He will need outpatient PFTs and an outpatient PET scan. He will be presented at the [facility] thoracic nodule conference. Unclear if this would be surgically resectable or if chemoradiation is required. Will need his PFTs and PET scan before he is presented at conference. I would be happy to see him back in the outpatient pulmonary clinic. Current lesion is possibly intermittently obstructing the left lower lobe and postobstructive pneumonia would be on the differential so including antibiotics with gram-negative coverage would be appropriate. Do not think the patient is at risk for Pseudomonas so do not think antipseudomonal coverage needs to be continued. Can likely de-escalate to oral Augmentin. Would need to treat for 10 to 14 days at least. 2. Management of the patient's bacteremia deferred to the admitting service. Questions were answered to the best my ability. The patient expressed understanding and is in agreement with the plan as outlined Pulmonary will sign off at this point time. Feel free to contact us if we can be of additional assistance or if there are any questions that arise. Admission and Anticipated Discharge Date Admission Date: March 02, 2021 Subjective Patient seen and examined. He is doing well. He is on room air. He is devoid of any respiratory issues. No issues post bronchoscopy. He denies chest pain palpitations cough or sputum production. No hemoptysis. No fevers chills or night sweats. He overall feels well. Review of Systems Review of Systems: All systems reviewed & are unremarkable except as noted in HPI & below Physical Exam Constitutional: WD/WN, vitals as above ENMT: Mallampati Class: III Neck: trachea midline, no thyromegaly Respiratory: normal respiratory effort, lungs clear to auscultation Cardiovascular: RRR, no murmur, no edema Gastrointestinal (Abdomen): normal bowel sounds, soft, nontender, no hepatosplenomegaly Musculoskeletal: Extremities: extremities normal to inspection Skin: no rashes, warm and dry Lymphatic: no cervical lymphadenopathy Results & Data Results & Data ([facility]) Vital Signs (Past 12 Hours) Vital Signs Temp Pulse Resp BP Pulse Ox 03/04/21 06:25 37.1 C 72 16 116/68 93 Laboratory Results 03/02/21 06:05 03/04/21 07:57 Pathology results from bronchoscopy are currently pending. Preliminary indicates probable carcinoma Diagnostic Findings No new imaging PG Care Time/CCT Total # of Minutes Spent Total Time Spent with Patient: Total time spent is greater than 50% in coordination of care (as documented) at patient's floor/unit and/or counseling patient: Coding Level of Care Code 52713 Subseq Hosp Care Lvl [address] scan of lung R91.8 Lung mass R91.8 Pneumonia J18.9 Laterality: left Lung location: lower lobe of lung Pneumonia type: due to unspecified organism
--- NOTE | 2021-03-04 13:27 | XCELERA ---
[id number]
[2021-03-04] MEDS: ROSUVASTATIN CALCIUM 5 MG TAB PO SCH (21:19)
[2021-03-04] MEDS: ACETAMINOPHEN 325 MG TAB PO PRN (23:04)
[2021-03-05] MEDS: SODIUM CHLORIDE 0.9% 1000ML 1,000 ML IV SCH ×4 (05:51→22:36)
[2021-03-05] MEDS: PIPERACILLIN/TAZOBACTAM 3.375 GM in DEXTROSE 5% 100 ML IV SCH ×3 (06:24→22:36)
[2021-03-05 07:14] LABS: BUN Creatinine Ratio 17.6 (10-20); Calcium 8.4 mg/dl (8.5-10.1); Creatinine Clr Calc Pharmacy 111.4 ml/min; Est GFR (African American) 105.4 ml/min; Potassium 3.5 mmol/L (3.5-5.1)
[2021-03-05] MEDS: ACETAMINOPHEN 325 MG TAB PO PRN (08:17)
[2021-03-05] MEDS: EZETIMIBE 10 MG TABLET PO SCH (08:18)
[2021-03-05] MEDS: HEPARIN SOD 5,000 UNIT/0.5 ML VIAL SQ SCH ×2 (08:18→21:05)
[2021-03-05] MEDS: LOSARTAN POTASSIUM 25 MG TAB PO SCH (08:18)
[2021-03-05] MEDS ORDERED: INSULIN GLARGINE SOLOSTAR 100 UNITS/ML 3 ML PEN SC SCH (09:00)
[2021-03-05] MEDS: INSULIN GLARGINE SOLOSTAR 100 UNITS/ML 3 ML PEN SC SCH (09:12)
[2021-03-05] MEDS: INSULIN ASPART 100 UNITS/ML 3 ML PEN SC SCH ×4 (09:12→21:10)
--- NOTE | 2021-03-05 10:01 | Pharmacy Report ---
Pharmacy Glycemic Short Note 2 - Date of Service March 05, 2021 - Glycemic Short BSG Results (Last 24 hours): 03/04/21 03/04/21 03/04/21 12:10 17:19 20:52 Glucose POC Glucose 213 H 192 H 171 H 03/05/21 03/05/21 06:30 08:31 Glucose 154 H POC Glucose 149 H OUTPATIENT ANTIDIABETIC REGIMEN: * Lantus 35 units SQ qam * Pioglitazone 45 mg qAM ASSESSMENT: 03/05 * Pt has received 57 units of insulin over the past 24hrs * 40 units of basal with Lantus * 17 units of bolus with NovoLog (minimal CHO intake yesterday - only ate BF & Lunch) * BSGs [id number] mg/dl * AM fasting BSG remains above goal range at 149 mg/dl. Will increase basal insulin with Lantus by ~ 10% * Post-prandial BSGs also elevated - will tighten CF/CR * Goal is to maintain BSGs <180 (ideally <150 mg/dl) to promote healing 03/04 * Pt has received 46 units of insulin over the past 24hrs * 35 units of basal with Lantus * 11 units of bolus with NovoLog * BSGs [phone] mg/dl * Pt NPO yesterday - regimen weighted towards basal insulin d/t no CHO coverage given * BSGs well controlled with 40 units of basal (given 03/02) while NPO (03/03) indicating that ~40 units is true basal insulin needs. Will increase Lantus to 40 units daily in AM * Will change CF/CR slightly to correlate with estimated basal of ~ 40 units/day 03/03 * Yaya is a 70 yo uncontrolled T2DM admitted with suspected pneumonia and staph bacteremia * Pharmacy consulted on 03/02 due to severe hyperglycemia. At this time, labs did not indicate DKA or HHS. Patient had already taken his full dose of basal insulin in the morning. A conservative basal insulin scale was added for HS, novololg was tightened and an IV regular insulin 5 unit bolus was ordered. * Fasting BSG this morning remains elevated but has improved greatly. Will continue to titrate Lantus, although dose for this morning will actually be decreased today for NPO status. * Current novolog order appears to be working well; post prandial BSGs trended downward yesterday PLAN FOR INPATIENT GLYCEMIC CONTROL: * Hold outpatient oral diabetes medications * Basal insulin: increase * Lantus 45 units SQ daily in AM. Continue with once daily dosing in AM as patient only takes Lantus once daily in AM as an outpatient * Bolus insulin: tighten CF/CR based on est basal of ~ 45 units * NovoLog per scale ACHS or Q6hrs while NPO * Goal Range: Low 110 mg/dL - High 140 mg/dL * Correction Factor: 20 mg/dL/unit * Nutritional / Prandial insulin per carb ratio of 1 unit per 6 grams CHO consumed PLAN FOR DISCHARGE: * A1c = 9.5% (decreased from 11.9% in October 2020) * Less stringent A1c goal of <8% likely acceptable based on age/co- morbidities * Not sure if patient has tried Metformin in the past. This would be an acceptable option to add at DC to help minimize insulin dosing to promote weight loss. 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 * Outpatient basal insulin of Lantus 35 units SQ daily in AM correlates well with inpatient needs while NPO. Most likely no changes needed to basal insulin * Could consider adding prandial insulin vs GLP-1 at DC to achieve goal A1c of <8%
--- NOTE | 2021-03-05 13:13 | Hospitalist Progress Note ---
Date of Service March 05, 2021 Assessment & Plan (1) Gram-positive bacteremia: Plan: Pt now with 4 of 4 blood cultures with gram positive, on zosyn to cover urine and also post obstructive pneumonia. Transthoracic echo did not show vegetations, however if continues with fever may compell a ELI, will have infectious disease consultation ordered for 06 March. We will check inflammatory markers on March 06 also (2) Pneumonia: Plan: Patient with hyperglycemia from physiological stressor and having left lower lobe infiltrate and a urinary tract infection with persistent feveR. With MSSA blood cultures and urine culture, Zosyn was chosen. Zosyn was continued due to a postobstructive pneumonia felt to be present, however the pt has a confirmed staph MSSA urine culture so has both pneumonia and staph uti CT chest 03/02/2021 IMPRESSION: 1. Left perihilar masslike consolidation measures up to 8.2 cm and involves the left lower lobe encasing and extending along the adjacent lingular and left lower lobe bronchi. This finding is suggestive of primary bronchogenic carcinoma. 2. Mild postobstructive pneumonitis of the left lower lobe and inferior segment lingula with trace left pleural effusion. 3. No pathologically enlarged lymph nodes identified. 4. Hepatosplenomegaly with hepatic steatosis. Bronchoscopy performed 03/03/[address] Raymond Howard samples are pending, with high suspicion of malignancy further staging with MRI of the brain is ordered currently no suggestion of disease in the liver as seen on CT scan chest. (3) UTI (urinary tract infection): Plan: MSSA uti cultured, treated with Zosyn at present due to concern for post obstuctive pneuomina (4) Diabetes mellitus type 2, uncontrolled: Plan: Patient had marked hyperglycemia with uncontrolled diabetes she is on basal bolus insulin glycemic management. His elevated glucose likely influences his hyponatremia which is present on admission glucoses have improved diabetes is uncontrolled based upon his outpatient hemoglobin A1c. Although the patient elevated beta hydroxybutyric acid clinically he was on a diabetic ketoacidosis and was not treated as such (5) Acute kidney injury: Plan: Patient has acute kidney injury likely from dehydration from his hyperglycemia. This has resolved and patient returns to chronic kidney disease is stage III which likely requires renal dose adjustments for his antibiotics. (6) Hypomagnesemia: Plan: Significant on presentation will be replete with 3 g of magnesium (7) Hyperlipidemia: Plan: Continues rosuvastatin (8) Hypertension: Plan: Continues on losartan which is likely renal protective (9) Elevated PSA: Plan: Patient's PSA was checked 1 year ago it was 5, he does not follow with urology he has discussed this with his primary care and does not want referral to urology (10) Elevated bilirubin: Plan: Patient is elevated bilirubin and mild elevation in transaminases at this time Recheck of bilirubin shows favorable trend downward (11) DVT prophylaxis: Plan: Heparin for DVT prevention given renal dysfunction Admission and Anticipated Discharge Date Admission Date: March 02, 2021 Subjective Patient's fever curve is trending downward. Blood cultures remain positive pending blood cultures from the , seems to minimize his distress, Since he has had positive blood cultures, / now last from 03/03, ordered recheck on , persistently febrile also Review of Systems Review of Systems: Mild distress and fatigue no headache, no visual changes no speech or swallowing issues no chest pain, pressure or palpitations no shortness of breath,non productive cough no abdominal pain, nausea or vomiting, diarrhea or constipation no dysuria, hematuria or frequency no focal joint pain or swelling no back pain, CVA tenderness or radicular pain no bruising, bleeding or rashes no focal signs of weakness or numbness or altered sensation no complaints of anxiety or depression.. Physical Exam Physical Exam: The patient appeared well nourished and normally developed. Vital signs as documented. he is not jaundiced Head exam is normocephalic atraumatic Neck is without JVD, thyromegaly, or carotid bruits. Lungs are with abscent breath sounds left base Cardiac exam, Rhythm is regular.. No murmurs, rubs or gallops. Abdominal exam reveals normal bowel sounds, soft non tender, no masses Extremities are nonedematous and both pedal pulses are present Neurologic exam is alert and oriented, no focal loss of strength or sensation Skin is without bruises or rashes Psychologically is without concerns for anxiety or depression Results & Data Results & Data ([facility]) Vital Signs (Past 12 Hours) Vital Signs Temp Pulse Resp BP Pulse Ox 03/05/21 07:00 98.1 F 66 20 132/73 95 PG Care Time/CCT Total # of Minutes Spent Total Time Spent with Patient: Total time spent is greater than 50% in coordination of care (as documented) at patient's floor/unit and/or counseling patient: Coding Level of Care Code 74398 Subseq Hosp Care Lvl 3 Diagnoses Gram-positive bacteremia R78.81 Pneumonia J18.9 UTI (urinary tract infection) N39.0 Diabetes mellitus type 2, uncontrolled E11.65 Glycemic state: with hyperglycemia Acute kidney injury N17.9 Hypomagnesemia E83.42 Hyperlipidemia E78.5 Hypertension I10 Elevated PSA R97.20 Elevated bilirubin R17 DVT prophylaxis Z29.9 (1) Diabetes mellitus type 2, uncontrolled Glycemic state: with hyperglycemia Qualified Code(s): E11.65 - Type 2 diabetes mellitus with hyperglycemia
[2021-03-05] MEDS: ACETAMINOPHEN 500 MG TAB PO PRN (15:56)
[2021-03-05] MEDS ORDERED: VANCOMYCIN TROUGH ONE (17:30)
[2021-03-05] MEDS ORDERED: Nursing to Pharmacy Communication SCH (18:30)
[2021-03-05] MEDS: ROSUVASTATIN CALCIUM 5 MG TAB PO SCH (21:07)
[2021-03-06] MEDS: SODIUM CHLORIDE 0.9% 1000ML 1,000 ML IV SCH (08:23)
[2021-03-06 08:28] LABS: Eosinophils % (auto) 2.9 %; Hematocrit (blood only) 35.6 % (42-52); Hemoglobin 11.9 g/dL (14.0-18.0); Immature Granulocytes # (auto) 0.04 K/uL (0.00-0.02); Immature Granulocytes % (auto) 0.6 %; Lymphocytes # (auto) 0.61 K/uL (1.2-3.4); Lymphocytes % (auto) 8.8 %; Mean Corpuscular Hemoglobin 29.5 pg (25-34); Mean Corpuscular Hgb Conc 33.4 g/dL (32-36); Mean Corpuscular Volume 88.3 fL (80-100); Monocytes # (auto) 0.61 K/uL (0.11-0.59); Monocytes % (auto) 8.8 %; Neutrophils # (auto) 5.49 K/uL (1.4-6.5); Neutrophils % (auto) 78.9 %; Platelet Count 169 K/uL (130-400); RDW Standard Deviation 45.7 fL (36.4-46.3); Red Blood Count 4.03 M/uL (4.7-6.1); White Blood Count 6.95 K/uL (4.8-10.8)
[2021-03-06] MEDS: PIPERACILLIN/TAZOBACTAM 3.375 GM in DEXTROSE 5% 100 ML IV SCH ×3 (08:48→22:34)
[2021-03-06 09:00] LABS: BUN Creatinine Ratio 15.9 (10-20); C Reactive Protein 10.8 mg/dl (0-0.29); Calcium 8.2 mg/dl (8.5-10.1); Est GFR (African American) 104.9 ml/min; Est GFR (Non-African American) 90.5 ml/min; Potassium 3.4 mmol/L (3.5-5.1)
[2021-03-06 09:03] LABS: Albumin Globulin Ratio 0.5 (0.9-2); Bilirubin,Total 1.2 mg/dl (0.2-1); Globulin 3.7 gm/dl (2.5-4.0); Total Protein 5.7 gm/dl (6.4-8.2)
[2021-03-06] MEDS: HEPARIN SOD 5,000 UNIT/0.5 ML VIAL SQ SCH ×2 (09:36→21:22)
[2021-03-06] MEDS: INSULIN ASPART 100 UNITS/ML 3 ML PEN SC SCH ×4 (09:37→21:21)
[2021-03-06] MEDS: EZETIMIBE 10 MG TABLET PO SCH (09:37)
[2021-03-06] MEDS: LOSARTAN POTASSIUM 25 MG TAB PO SCH (09:37)
[2021-03-06] MEDS: INSULIN GLARGINE SOLOSTAR 100 UNITS/ML 3 ML PEN SC SCH (09:39)
[2021-03-06] MEDS: ACETAMINOPHEN 500 MG TAB PO PRN (12:32)
--- NOTE | 2021-03-06 16:35 | Hospitalist Progress Note ---
Date of Service March 06, 2021 Assessment & Plan (1) MSSA bacteremia: Plan: Notably had staph aureus abscesses on left shoulder in 2017 Given persistently positive will consult cardiology for ELI Suspect mostly likely persistently positive due to hardware in right knee (red, hot, swollen on admission per patient and his ), therefore will consult his orthopedic surgeon for possible washout. Given suspect right knee joint infection will avoid repeat blood cultures until after assessment by orthopedics. Continue Zosyn pending ID consult covering both post-obstructive PNA and MSSA, suspect can be switched to cefazolin/nafcillin tomorrow. (2) Non-small cell cancer of left lung: Plan: Patient and aware of diagnosis Squamous cell carcinoma on pathology of lymph node Follow up with Dr Howard/Tez as outpatient (3) Pneumonia: Plan: Possible primary infection for MSSA as above Post-obstructive CT chest 03/02/2021 IMPRESSION: 1. Left perihilar masslike consolidation measures up to 8.2 cm and involves the left lower lobe encasing and extending along the adjacent lingular and left lower lobe bronchi. This finding is suggestive of primary bronchogenic carcinoma. 2. Mild postobstructive pneumonitis of the left lower lobe and inferior segment lingula with trace left pleural effusion. 3. No pathologically enlarged lymph nodes identified. 4. Hepatosplenomegaly with hepatic steatosis. Procalcitonin negative - can likely safely stop coverage for this (4) UTI (urinary tract infection): Plan: Suspect MSSA on culture not primarily UTI (5) Diabetes mellitus type 2, uncontrolled: Plan: HbA1C 9.5 Appreciate pharmacy glycemic management (6) Acute kidney injury: Plan: Resolved (7) Hypomagnesemia: Plan: Resolved. Will intermittently take level and replace as necessary (8) Hyperlipidemia: Plan: Continue rosuvastatin (9) Hypertension: Plan: Continue losartan (10) Elevated PSA: Plan: Patient's PSA was checked 1 year ago it was 5, he does not follow with urology he has discussed this with his primary care and does not want referral to urology (11) Elevated bilirubin: Plan: Patient is elevated bilirubin and mild elevation in transaminases at this time Recheck of bilirubin shows favorable trend downward (12) DVT prophylaxis: Plan: Heparin for DVT prevention given renal dysfunction Admission and Anticipated Discharge Date Admission Date: March 02, 2021 Subjective T 37.9 03/04, no temperature yesterday. He feels mostly at his baseline except for ongoing fatigue. Persistently positive MSSA bacteremia. He notes prior abscesses requiring surgical incision and drainage in 2017. No hardware in his shoulder infected but he does describe what sounds like a prolonged course of intravenous antibiotics at that time. He also noted that his right knee has been improving. Not mentioned in H&P but he and his report it was hot and swollen on admission. Improved but still very painful to walk on. He reports previous surgery was many years ago by Dr Hughes and did not have any significant pain after this until recently. No hip or groin pain. 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 Does not appears to have significant symptoms of this with no shortness of breath, chest pain or hemoptysis. Patient and his demonstrated understanding that the mass is cancerous. He has had a persistent left pleural effusion since at least 2017 and never had thoracocentesis of this so possibly slow growing. No mass seen on CT in 2017 however. Review of Systems Review of Systems: All systems reviewed & are unremarkable except as noted in HPI & below Physical Exam Constitutional: WD/WN, vitals as above + obese ENMT: external ear and nose normal, oropharynx normal Neck: trachea midline, no thyromegaly Respiratory: normal respiratory effort; no respiratory distress Auscultation: + breath sounds absent (left base) Cardiovascular: RRR, no murmur, no edema Gastrointestinal (Abdomen): normal bowel sounds, soft, nontender, no hepatosplenomegaly Musculoskeletal: Knee: + effusion (mild right knee effusion, no erythema or warmth) Neurologic: moves all extremities and awake; not confused Psychiatric: A+Ox3, euthymic affect Results & Data Results & Data ([facility]) Vital Signs (Past 12 Hours) Vital Signs Temp Pulse Resp BP Pulse Ox 03/06/21 15:15 36.7 C 57 L 18 121/73 95 03/06/21 07:48 37.0 C 69 16 149/79 H 93 PG Care Time/CCT Total # of Minutes Spent Total Time Spent with Patient: Total time spent is greater than 50% in coordination of care (as documented) at patient's floor/unit and/or counseling patient: Coding Level of Care Code 37639 Subseq Hosp Care Lvl 3 Diagnoses Pneumonia J18.9 UTI (urinary tract infection) N39.0 Diabetes mellitus type 2, uncontrolled E11.65 Glycemic state: with hyperglycemia Acute kidney injury N17.9 Hypomagnesemia E83.42 Hyperlipidemia E78.5 Hypertension I10 Elevated PSA R97.20 Elevated bilirubin R17 DVT prophylaxis Z29.9 MSSA bacteremia R78.81; B95.61 Non-small cell cancer of left lung C34.92 (1) Diabetes mellitus type 2, uncontrolled Glycemic state: with hyperglycemia Qualified Code(s): E11.65 - Type 2 diabetes mellitus with hyperglycemia
--- NOTE | 2021-03-06 19:06 | XRay Report ---
RIGHT KNEE 2 VIEWS CLINICAL HISTORY: Right knee pain. FINDINGS: AP and crosstable lateral views of the right knee are compared to study dated 12/06/2015. Th e skeletal structures are osteopenic. No fracture is identified. A right knee arthroplasty is in near -anatomic alignment. There has been undersurface remodeling of the patella. No periprosthetic lucency is identified. There is a large joint effusion. Mild soft tissue edema is seen around the knee. Ther e is atherosclerotic calcification of the popliteal artery. IMPRESSION: 1. Large joint effusion with no acute bony abnormality identified. 2. A right knee arthroplasty is in near anatomic alignment. Electronically signed by: Felice Arriaga M.D. 03/06/2021 7:05 PM
[2021-03-06] MEDS: ROSUVASTATIN CALCIUM 5 MG TAB PO SCH (21:23)
[2021-03-07] MEDS ORDERED: Nursing to Pharmacy Communication SCH ×2 (01:45→16:30)
[2021-03-07] MEDS: INSULIN ASPART 100 UNITS/ML 3 ML PEN SC SCH ×4 (05:55→20:53)
[2021-03-07] MEDS: PIPERACILLIN/TAZOBACTAM 3.375 GM in DEXTROSE 5% 100 ML IV SCH (06:06)
[2021-03-07 07:56] LABS: Basophils # (auto) 0.01 K/uL (0-0.2); Basophils % (auto) 0.1 %; Eosinophils # (auto) 0.18 K/uL (0-0.5); Eosinophils % (auto) 2.4 %; Hematocrit (blood only) 35.1 % (42-52); Hemoglobin 11.9 g/dL (14.0-18.0); Immature Granulocytes # (auto) 0.04 K/uL (0.00-0.02); Immature Granulocytes % (auto) 0.5 %; Lymphocytes # (auto) 0.51 K/uL (1.2-3.4); Lymphocytes % (auto) 6.9 %; Mean Corpuscular Hemoglobin 29.8 pg (25-34); Mean Corpuscular Hgb Conc 33.9 g/dL (32-36); Mean Platelet Volume 10.5 fL (7.4-10.4); Monocytes # (auto) 0.52 K/uL (0.11-0.59); Neutrophils # (auto) 6.18 K/uL (1.4-6.5); Neutrophils % (auto) 83.1 %; Platelet Count 194 K/uL (130-400); RDW Standard Deviation 45.3 fL (36.4-46.3); Red Blood Count 3.99 M/uL (4.7-6.1); White Blood Count 7.44 K/uL (4.8-10.8)
[2021-03-07 08:32] LABS: BUN Creatinine Ratio 14.3 (10-20); C Reactive Protein 10.3 mg/dl (0-0.29); Est GFR (African American) 104.9 ml/min; Est GFR (Non-African American) 90.5 ml/min; Potassium 3.3 mmol/L (3.5-5.1)
[2021-03-07 08:35] LABS: Albumin Globulin Ratio 0.5 (0.9-2); Bilirubin,Total 1.4 mg/dl (0.2-1)
[2021-03-07] MEDS ORDERED: INSULIN GLARGINE SOLOSTAR 100 UNITS/ML 3 ML PEN SC SCH ×2 (09:00)
[2021-03-07] MEDS: LOSARTAN POTASSIUM 25 MG TAB PO SCH (10:22)
[2021-03-07] MEDS: EZETIMIBE 10 MG TABLET PO SCH (10:22)
[2021-03-07] MEDS: HEPARIN SOD 5,000 UNIT/0.5 ML VIAL SQ SCH ×2 (10:23→20:53)
[2021-03-07] MEDS ORDERED: LACTATED RINGER'S 1,000 ML IV SCH (10:45)
--- NOTE | 2021-03-07 13:15 | Hospitalist Progress Note ---
Date of Service March 07, 2021 Assessment & Plan (1) MSSA bacteremia: Plan: Notably had staph aureus abscesses on left shoulder in 2017. h/o left shoulder rotator cuff repair in 2008 which became infected approx 3-4 weeks after and underwent I and D - I am unclear on the culture of this infection however. Discussed with Dr Berger regarding ELI and I think this would not change duration of antibiotics therefore unless directed by ID will defer this. Suspect mostly likely persistently positive due to hardware in right knee (red, hot, swollen on admission per patient and his ), ortho consult pending. Given suspect right knee joint infection will avoid repeat blood cultures until after assessment by orthopedics. Discussed antibiotics with Dr Gallagher ([facility] ID) recommended either cefazolin or nafcillin for MSSA bacteremia therefore will switch to cefazolin today 03/07, formal ID consult pending, potentially will be done tomorrow. (2) Non-small cell cancer of left lung: Plan: New diagnosis this admission Patient and aware of diagnosis Squamous cell carcinoma on pathology of lymph node Follow up with Dr Hoawrd (pulmonology) /Tez (oncology) as outpatient (3) Pneumonia: Plan: Possible primary infection for MSSA as above. However never had any significant symptoms regarding PNA. Post-obstructive CT chest 03/02/2021 IMPRESSION: 1. Left perihilar masslike consolidation measures up to 8.2 cm and involves the left lower lobe encasing and extending along the adjacent lingular and left lower lobe bronchi. This finding is suggestive of primary bronchogenic carcinoma. 2. Mild postobstructive pneumonitis of the left lower lobe and inferior segment lingula with trace left pleural effusion. 3. No pathologically enlarged lymph nodes identified. 4. Hepatosplenomegaly with hepatic steatosis. Procalcitonin negative yesterday therefore antibiotics switched to cefazolin as above. (4) UTI (urinary tract infection): Plan: Suspect MSSA on culture not primarily UTI (5) Diabetes mellitus type 2, uncontrolled: Plan: HbA1C 9.5 (previously much worse controlled, ~12, prior to patient taking insulin earlier this year) Appreciate pharmacy glycemic management (6) Acute kidney injury: Plan: Present on admission. Pre-renal Resolved with IV fluids (7) Hypomagnesemia: Plan: Resolved. Will intermittently take level and replace as necessary (8) Hyperlipidemia: Plan: Continue rosuvastatin (9) Hypertension: Plan: BP stable Continue losartan (10) Elevated PSA: Plan: Patient's PSA was checked 1 year ago it was 5, he does not follow with urology he has discussed this with his primary care and does not want referral to urology (11) Elevated bilirubin: Plan: Patient is elevated bilirubin and mild elevation in transaminases at this time Recheck of bilirubin shows favorable trend downward ALP uptrending ?due to MSSA bone/joint involvement Plan: VTE prophylaxis - heparin 5000 units SQ BID Admission and Anticipated Discharge Date Admission Date: March 02, 2021 Subjective T max 37.9 however patient feels at baseline without any fevers or chills. Continued mild right knee and left shoulder pain. No dysuria or flank pain. No chest pain, cough or shortness of breath. Currently NPO pending orthopedic evaluation. Review of Systems Review of Systems: All systems reviewed & are unremarkable except as noted in HPI & below Physical Exam Constitutional: WD/WN, vitals as above + obese ENMT: external ear and nose normal, oropharynx normal Neck: trachea midline, no thyromegaly Respiratory: normal respiratory effort; no respiratory distress Auscultation: + breath sounds absent (left base) Cardiovascular: RRR, no murmur, no edema Gastrointestinal (Abdomen): normal bowel sounds, soft, nontender, no hepatosplenomegaly Musculoskeletal: Knee: + effusion (mild right knee effusion, no erythema or warmth) Neurologic: moves all extremities and awake; not confused Psychiatric: A+Ox3, euthymic affect Results & Data Results & Data ([facility]) Vital Signs (Past 12 Hours) Vital Signs Temp Pulse Resp BP Pulse Ox 03/07/21 09:01 36.9 C 71 16 146/69 H 93 PG Care Time/CCT Total # of Minutes Spent Total Time Spent with Patient: Total time spent is greater than 50% in coordination of care (as documented) at patient's floor/unit and/or counseling patient: Coding Level of Care Code 30674 Subseq Hosp Care Lvl 3 Diagnoses MSSA bacteremia R78.81; B95.61 Non-small cell cancer of left lung C34.92 Pneumonia J18.9 UTI (urinary tract infection) N39.0 Diabetes mellitus type 2, uncontrolled E11.65 Glycemic state: with hyperglycemia Acute kidney injury N17.9 Hypomagnesemia E83.42 Hyperlipidemia E78.5 Hypertension I10 Elevated PSA R97.20 Elevated bilirubin R17 (1) Diabetes mellitus type 2, uncontrolled Glycemic state: with hyperglycemia Qualified Code(s): E11.65 - Type 2 diabetes mellitus with hyperglycemia
[2021-03-07] MEDS: ceFAZolin 2000MG 2,000 MG/15 ML SYR IV SCH ×2 (16:22→20:57)
--- NOTE | 2021-03-07 16:22 | Orthopedic Consultation ---
Date of Service March 07, 2021 Assessment & Plan (1) Infection of total right knee replacement: He was seen and examined by Dr. Hughes today as well. He does have MSSA bacteremia. We did aspirate the right knee and left shoulder, and this looked cloudy/purulent. Synovial fluid was sent off for stat gram stain and aerobic/anaerobic cultures, cell count w/diff. Do to the complexity of this problem involving multiple joints Dr. Hughes did recommend transferring him to a tertiary center to manage these problems. This was discussed with the hospitalist, as well as the patient and his . Procedure: Right knee was sterilely prepped with alcohol and using aseptic technique approx 60ml of cloudy yellow fluid was aspirated. He tolerated the procedure well. No complications. Left shoulder was sterilely prepped with alcohol and using aseptic technique approx 30ml of cloudy yellow fluid was aspirated from the glenohumeral joint. He tolerated the procedure well. No complications. (2) Septic joint of left shoulder region: History of Present Illness Reason for Consultation: . Requesting Physician: . Attending Physician: Sylvain Hodge MD .aYya is a 70 year old male admitted 5 days ago, with MSSA pneumonia and newly diagnosed lung cancer, who has been having right knee pain/swelling, and left shoulder pain/swelling. He has a h/o right tka approx 5 years ago and prior to last week states that his knee was doing well. He denies pain prior to developing this pneumonia last week. In addition, he has a h/o left shoulder rotator cuff repair in 2008 which became infected approx 3-4 weeks after and underwent I and D. He says his shoulder has also been doing fine until last week. He has difficulty ambulating and weight bearing on the right leg, and cannot raise his left arm at the shoulder. Allergies Allergy/AdvReac Type Severity Reaction Status Date / Time peanut Allergy Severe Anaphylaxis Unverified 03/02/21 08:35 VANDA Inhibitors Allergy Unknown reaction Verified 03/02/21 08:35 unknown capsaicin Allergy Unknown unknown Verified 03/02/21 08:35 reaction celecoxib Allergy Unknown pruritis Verified 03/02/21 08:35 diclofenac Allergy Unknown unknown Verified 03/02/21 08:35 reaction Diclopak Allergy Unknown unknown Verified 12/13/17 10:15 reaction Ugaexut-Ugd-Gzi Reductase AdvReac Unknown myalgias Verified 03/02/21 08:35 Inhibitor Home Medications Medication Instructions Recorded Confirmed Type ibuprofen 200 mg tablet (Advil) 400 mg PO Q4H tab 04/29/19 03/02/21 History blood sugar diagnostic (OneTouch #100 ea 11/18/20 Rx Verio test strips) blood-glucose meter (OneTouch #1 ea 11/18/20 Rx Verio Meter) insulin glargine 100 unit/mL (3 35 unit SUBCUT QAM 90 Days #45 ml 11/18/20 03/02/21 Rx mL) subcutaneous pen (Lantus Solostar U-100 Insulin) lancets (OneTouch UltraSoft #200 ea 11/18/20 Rx Lancets) pen needle, diabetic 29 gauge x #100 ea 11/18/20 11/18/20 Rx 1/2" (BD Ultra-Fine Original Pen Needle) ezetimibe 10 mg tablet (Zetia) 10 mg PO QAM 03/02/21 03/02/21 History losartan 25 mg tablet 25 mg PO QAM 03/02/21 03/02/21 History pioglitazone 45 mg tablet 45 mg PO QAM 03/02/21 03/02/21 History rosuvastatin 5 mg tablet 5 mg PO QAM 03/02/21 03/02/21 History Past Med/Surg History Medical History (Updated 03/07/21 @ 16:17 by Reynaldo Ortiz PA-C) Knee pain, right Left sided chest pain Polycythemia vera Right flank pain Surgical History H/O total knee replacement History of arthroscopy of right knee History of dermoid cyst excision History of shoulder surgery Status post biopsy of skin Family History Father Kidney disease Social History Smoking Status: Current every day smoker Tobacco Type: Cigars Cigarettes Per Day: 2-3/day; Smoking End Date: 02/27/21; Second Hand Exposure: Yes (father); Do You Dip or Chew Tobacco: No; Hx Alcohol Use: Yes Alcohol type: beer and hard liquor Hx Substance Use: No Preferred Language: Portuguese Communication Ability: Effective Beliefs That Will Affect Care: None marital status: Current Living Situation: Spouse current occupational status: retired Other Information That Helps Us Care for You: No Feels Safe at Home: Yes Assistive Devices: Denture - Upper, Denture - Lower, Glasses and Walker Review of Systems All systems reviewed & are unremarkable except as noted in HPI & below. Physical Exam .He is alert and oriented. NAD. Right knee: He has a scar from previous tka. Large knee effusion. Cannot really do a straight leg raise and has limted range of motion. Left shoulder: scars from previous surgery. He does have swelling around the shoulder. He can flex and extend his wrist and elbow well but cannot actively raise his shoulder. Results & Data Results & Data Laboratory Results . Diagnostic Findings . PG Care Time/CCT Total # of Minutes Spent Total Time Spent with Patient: Total time spent is greater than 50% in coordination of care (as documented) at patient's floor/unit and/or counseling patient: Coding Level of Care Code 18302 Inpt Consult Level 4 Diagnoses Infection of total right knee replacement T84.53XA Septic joint of left shoulder region M00.9
[2021-03-07] MEDS: ACETAMINOPHEN 500 MG TAB PO PRN (16:31)
[2021-03-07 17:51] LABS: Appearance Synovial Fluid CLOUDY; Color Synovial Fluid YELLOW; Mononuclear WBC Synovial 3.5 %; Polynuclear WBC Synovial 96.5 %; RBC Synovial Fluid (A) 10000 /uL; Source Synovial Fluid OTHER; WBC Synovial Fluid (A) 41230 /ul (0-200)
[2021-03-07 17:52] LABS: Appearance Synovial Fluid CLOUDY; Color Synovial Fluid YELLOW; Mononuclear WBC Synovial 8.1 %; Polynuclear WBC Synovial 91.9 %; RBC Synovial Fluid (A) 22000 /uL; Source Synovial Fluid KNEE; WBC Synovial Fluid (A) 32610 /ul (0-200)
[2021-03-07] MEDS: ROSUVASTATIN CALCIUM 5 MG TAB PO SCH (20:53)
[2021-03-08] MEDS: LACTATED RINGER'S 1,000 ML IV SCH ×3 (00:12→16:40)
[2021-03-08] MEDS ORDERED: Nursing to Pharmacy Communication SCH (03:45)
[2021-03-08] MEDS: ceFAZolin 2000MG 2,000 MG/15 ML SYR IV SCH ×2 (05:38→13:50)
[2021-03-08] MEDS: INSULIN ASPART 100 UNITS/ML 3 ML PEN SC SCH ×3 (05:49→18:11)
[2021-03-08] MEDS: EZETIMIBE 10 MG TABLET PO SCH (08:20)
[2021-03-08] MEDS: LOSARTAN POTASSIUM 25 MG TAB PO SCH (08:20)
[2021-03-08 08:36] LABS: Basophils # (auto) 0.02 K/uL (0-0.2); Basophils % (auto) 0.2 %; Eosinophils # (auto) 0.13 K/uL (0-0.5); Eosinophils % (auto) 1.6 %; Hematocrit (blood only) 36.9 % (42-52); Hemoglobin 12.2 g/dL (14.0-18.0); Immature Granulocytes # (auto) 0.06 K/uL (0.00-0.02); Immature Granulocytes % (auto) 0.7 %; Lymphocytes # (auto) 0.45 K/uL (1.2-3.4); Lymphocytes % (auto) 5.4 %; Mean Corpuscular Hemoglobin 29.6 pg (25-34); Mean Corpuscular Hgb Conc 33.1 g/dL (32-36); Mean Corpuscular Volume 89.6 fL (80-100); Mean Platelet Volume 10.6 fL (7.4-10.4); Monocytes # (auto) 0.56 K/uL (0.11-0.59); Monocytes % (auto) 6.7 %; Neutrophils # (auto) 7.15 K/uL (1.4-6.5); Neutrophils % (auto) 85.4 %; Platelet Count 262 K/uL (130-400); RDW Coefficient of Variation 14.1 % (11.5-14.5); RDW Standard Deviation 46.7 fL (36.4-46.3); Red Blood Count 4.12 M/uL (4.7-6.1); White Blood Count 8.37 K/uL (4.8-10.8)
[2021-03-08] MEDS ORDERED: INSULIN GLARGINE SOLOSTAR 100 UNITS/ML 3 ML PEN SC SCH (09:00)
[2021-03-08 09:10] LABS: Albumin Level 2.1 gm/dl (3.4-5.0); Calcium 8.5 mg/dl (8.5-10.1); Creatinine Clr Calc Pharmacy 133.3 ml/min; Est GFR (African American) 113.5 ml/min; Magnesium 1.5 mg/dl (1.8-2.4); Potassium 3.2 mmol/L (3.5-5.1)
[2021-03-08 09:13] LABS: Albumin Globulin Ratio 0.5 (0.9-2); Bilirubin,Total 1.2 mg/dl (0.2-1); Total Protein 6.1 gm/dl (6.4-8.2)
[2021-03-08] MEDS ORDERED: MAGNESIUM OXIDE 400 MG TAB PO SCH (12:45)
[2021-03-08] MEDS ORDERED: POTASSIUM CHLORIDE CRTAB 20 MEQ TABCR PO SCH (12:45)
--- NOTE | 2021-03-08 12:45 | Hospitalist Progress Note ---
Date of Service March 08, 2021 Assessment & Plan (1) MSSA bacteremia: Plan: Awaiting transfer to [facility] at this time. Currently NPO since midnight incase they can do washout today. LR running @ 125 ml/hr. Heparin on hold this morning. Notably had staph aureus abscesses on left shoulder in 2017. h/o left shoulder rotator cuff repair in 2008 which became infected approx 3-4 weeks after and underwent I and D - I am unclear on the culture of this infection however. Suspect mostly likely persistently positive due to hardware in right knee (red, hot, swollen on admission per patient and his ), pending transfer to [facility] for washout Gram stain negative however many WBC and purulent in setting of persistent MSSA therefore still requires washout of both left shoulder and Given suspect right knee joint infection will avoid repeat blood cultures until after assessment by orthopedics. Discussed antibiotics with Dr Gallagher ([facility] ID) recommended either cefazolin or nafcillin for MSSA bacteremia therefore will switch to cefazolin today 03/07, formal ID consult pending, potentially will be done tomorrow. (2) Non-small cell cancer of left lung: Plan: New diagnosis this admission Patient and aware of diagnosis Squamous cell carcinoma on pathology of lymph node Follow up with Dr Howard (pulmonology) /Tez (oncology) as outpatient (3) Pneumonia: Plan: Possible primary infection for MSSA as above. However never had any significant symptoms regarding PNA. Post-obstructive CT chest 03/02/2021 IMPRESSION: 1. Left perihilar masslike consolidation measures up to 8.2 cm and involves the left lower lobe encasing and extending along the adjacent lingular and left lower lobe bronchi. This finding is suggestive of primary bronchogenic carcinoma. 2. Mild postobstructive pneumonitis of the left lower lobe and inferior segment lingula with trace left pleural effusion. 3. No pathologically enlarged lymph nodes identified. 4. Hepatosplenomegaly with hepatic steatosis. Procalcitonin negative yesterday therefore antibiotics switched to cefazolin as above. (4) UTI (urinary tract infection): Plan: Suspect MSSA on culture not primarily UTI (5) Diabetes mellitus type 2, uncontrolled: Plan: HbA1C 9.5 (previously much worse controlled, ~12, prior to patient taking insulin earlier this year) Appreciate pharmacy glycemic management (6) Acute kidney injury: Plan: Present on admission. Pre-renal Resolved with IV fluids (7) Hypomagnesemia: Plan: Resolved. Will intermittently take level and replace as necessary (8) Hyperlipidemia: Plan: Continue rosuvastatin (9) Hypertension: Plan: BP stable Continue losartan (10) Elevated PSA: Plan: Patient's PSA was checked 1 year ago it was 5, he does not follow with urology he has discussed this with his primary care and does not want referral to urology (11) Elevated bilirubin: Plan: Patient is elevated bilirubin and mild elevation in transaminases at this time Recheck of bilirubin shows favorable trend downward ALP uptrending ?due to MSSA bone/joint involvement Plan: VTE prophylaxis - heparin 5000 units SQ BID Admission and Anticipated Discharge Date Admission Date: March 02, 2021 Subjective Continued T Max 37.9 in last 24 hours. Patient remains at baseline without feeling fevers or chills. Continued mild right knee and left shoulder pain, similar prior to aspiration. No dysuria or flank pain. No chest pain, cough or shortness of breath. Currently NPO pending transfer to [facility] ?this afternoon. Review of Systems Review of Systems: All systems reviewed & are unremarkable except as noted in HPI & below Physical Exam Constitutional: WD/WN, vitals as above + obese ENMT: external ear and nose normal, oropharynx normal Neck: trachea midline, no thyromegaly Respiratory: normal respiratory effort; no respiratory distress Auscultation: + breath sounds absent (left base) Cardiovascular: RRR, no murmur, no edema Gastrointestinal (Abdomen): normal bowel sounds, soft, nontender, no hepatosplenomegaly Musculoskeletal: Knee: + effusion (mild right knee effusion, no erythema or warmth) Neurologic: moves all extremities and awake; not confused Psychiatric: A+Ox3, euthymic affect Results & Data Results & Data ([facility]) Vital Signs (Past 12 Hours) Vital Signs Temp Pulse Resp BP Pulse Ox 03/08/21 07:22 37.0 C 76 20 145/67 H 94 PG Care Time/CCT Total # of Minutes Spent Total Time Spent with Patient: Total time spent is greater than 50% in coordination of care (as documented) at patient's floor/unit and/or counseling patient: Coding Diagnoses MSSA bacteremia R78.81; B95.61 Non-small cell cancer of left lung C34.92 Pneumonia J18.9 UTI (urinary tract infection) N39.0 Diabetes mellitus type 2, uncontrolled E11.65 Glycemic state: with hyperglycemia Acute kidney injury N17.9 Hypomagnesemia E83.42 Hyperlipidemia E78.5 Hypertension I10 Elevated PSA R97.20 Elevated bilirubin R17 (1) Diabetes mellitus type 2, uncontrolled Glycemic state: with hyperglycemia Qualified Code(s): E11.65 - Type 2 diabetes mellitus with hyperglycemia
--- NOTE | 2021-03-08 14:24 | Pharmacy Report ---
Pharmacy Glycemic Short Note 2 - Date of Service March 08, 2021 - Glycemic Short BSG Results (Last 24 hours): 03/07/21 03/07/21 03/08/21 16:55 20:43 05:38 Glucose POC Glucose 107 H 79 87 03/08/21 03/08/21 07:59 12:11 Glucose 80 POC Glucose 85 OUTPATIENT ANTIDIABETIC REGIMEN: * Lantus 35 units SQ qam * Pioglitazone 45 mg qAM ASSESSMENT: 03/08: * Pt received total of 42 units of insulin yesterday; 40 units basal and 2 units bolus. * Fasting BSG at 87 mg/dl at goal today and lower than yesterday (166 mg/dl). Patient has been NPO since yesterday. So, slightly reduced basal dose this AM to his home dose. * All other BSGs were at goal yesterday and today. No change in Novolog parameters made. 03/05 * Pt has received 57 units of insulin over the past 24hrs * 40 units of basal with Lantus * 17 units of bolus with NovoLog (minimal CHO intake yesterday - only ate BF & Lunch) * BSGs 472-392-370-171-149 mg/dl * AM fasting BSG remains above goal range at 149 mg/dl. Will increase basal insulin with Lantus by ~ 10% * Post-prandial BSGs also elevated - will tighten CF/CR * Goal is to maintain BSGs <180 (ideally <150 mg/dl) to promote healing 03/04 * Pt has received 46 units of insulin over the past 24hrs * 35 units of basal with Lantus * 11 units of bolus with NovoLog * BSGs [phone] mg/dl * Pt NPO yesterday - regimen weighted towards basal insulin d/t no CHO coverage given * BSGs well controlled with 40 units of basal (given 03/02) while NPO (03/03) indicating that ~40 units is true basal insulin needs. Will increase Lantus to 40 units daily in AM * Will change CF/CR slightly to correlate with estimated basal of ~ 40 units/day 03/03 * Yaya is a 70 yo uncontrolled T2DM admitted with suspected pneumonia and staph bacteremia * Pharmacy consulted on 03/02 due to severe hyperglycemia. At this time, labs did not indicate DKA or HHS. Patient had already taken his full dose of basal insulin in the morning. A conservative basal insulin scale was added for HS, novololg was tightened and an IV regular insulin 5 unit bolus was ordered. * Fasting BSG this morning remains elevated but has improved greatly. Will continue to titrate Lantus, although dose for this morning will actually be decreased today for NPO status. * Current novolog order appears to be working well; post prandial BSGs trended downward yesterday PLAN FOR INPATIENT GLYCEMIC CONTROL: * Hold outpatient oral diabetes medications * Basal insulin: decrease to home dose since patient is NPO * Lantus 35 units SQ daily in AM. * Bolus insulin: continued * NovoLog per scale ACHS or Q6hrs while NPO * Goal Range: Low 110 mg/dL - High 140 mg/dL * Correction Factor: 20 mg/dL/unit * Nutritional / Prandial insulin per carb ratio of 1 unit per 6 grams CHO consumed PLAN FOR DISCHARGE: * A1c = 9.5% (decreased from 11.9% in October 2020) * Less stringent A1c goal of <8% likely acceptable based on age/co- morbidities * Not sure if patient has tried Metformin in the past. This would be an acceptable option to add at DC to help minimize insulin dosing to promote weight loss. (B12 supplementation may be necessary with fpc metformin) * FDA has revised the label for metformin to reflect its safety in patients with eGFR 30 mL/min or above * May consider DC Pioglitazone; Pioglitazone may increase the risk for new primary malignancy, specifically bladder cancer but may not be the best option with possible new cancer diagnosis. * Outpatient basal insulin of Lantus 35 units SQ daily in AM correlates well with inpatient needs while NPO. Most likely no changes needed to basal insulin * Could consider adding prandial insulin vs GLP-1 at DC to achieve goal A1c of <8%
--- NOTE | 2021-03-08 14:46 | Discharge Summary ---
Date of Service March 08, 2021 Admission HPI Per Admitting Provider 70-year-old male patient who presents to the emergency department with multiple complaints. His symptoms started approximately 4 days ago and are not subsiding. Patient is a diabetic and he's noticed that his blood sugars are increasing. Pt is found to have left lower lobe infiltrate, does not have leukocytosis He has hyponatremia but it does correct for hyperglycemia, hypomagnesemia which will be replete. Principal Diagnosis MSSA bacteremia Left shoulder joint infection Right knee total knee arthroplasty infection Non-small cell lung cancer Left lower lobe post-obstructive pneumonia Discharge Exam Constitutional WD/WN, vitals as above Respiratory normal respiratory effort, lungs clear to auscultation Cardiovascular RRR, no murmur, no edema Musculoskeletal Knee: + effusion (right knee) Skin no rashes, warm and dry Neurologic moves all extremities and awake; not confused Psychiatric A+Ox3, euthymic affect Discharge Data Allergies Allergy/AdvReac Type Severity Reaction Status Date / Time peanut Allergy Severe Anaphylaxis Unverified 03/02/21 08:35 VANDA Inhibitors Allergy Unknown reaction Verified 03/02/21 08:35 unknown capsaicin Allergy Unknown unknown Verified 03/02/21 08:35 reaction celecoxib Allergy Unknown pruritis Verified 03/02/21 08:35 diclofenac Allergy Unknown unknown Verified 03/02/21 08:35 reaction Diclopak Allergy Unknown unknown Verified 12/13/17 10:15 reaction Qanajel-Zha-Yoh Reductase AdvReac Unknown myalgias Verified 03/02/21 08:35 Inhibitor Consultations 03/02/21 07:47 ED Decision to Admit Stat 03/06/21 08:00 Consult Infectious Diseases Routine 03/06/21 16:02 Consult Orthopedic Surgery Routine 03/07/21 19:35 Burn CD for patient Routine Procedures Performed Operation Date: 03/03/21 13:00 Actual Procedures p Endobronchial Ultrasound (EBUS)(Bilateral) - Raymond Howard MD Ordered Studies 03/02/21 13:59 CT chest diagnostic wo con Routine IMPRESSION: 1. Left perihilar masslike consolidation measures up to 8.2 cm and involves the left lower lobe encasing and extending along the adjacent lingular and left lower lobe bronchi. This finding is suggestive of primary bronchogenic carcinoma. 2. Mild postobstructive pneumonitis of the left lower lobe and inferior segment lingula with trace left pleural effusion. 3. No pathologically enlarged lymph nodes identified. 4. Hepatosplenomegaly with hepatic steatosis. 03/04/21 10:59 MR brain wo/w con Routine IMPRESSION: 1. No acute intracranial abnormality. 2. No abnormal enhancement to suggest intracranial metastatic disease. Diabetes Follow up Diabetes Follow-up Needed for HgbA1c >9% Hospital Course (1) MSSA bacteremia: (2) Non-small cell cancer of left lung: (3) Pneumonia: (4) UTI (urinary tract infection): (5) Diabetes mellitus type 2, uncontrolled: (6) Acute kidney injury: (7) Hypomagnesemia: (8) Hyperlipidemia: (9) Hypertension: (10) Elevated PSA: (11) Elevated bilirubin: Yaya Ellis is a 70 year old male admitted to [facility] from March 02 - 2020 due to fever, chills, diarrhea. He was initially treated for a left lower lobe pneumonia. Subsequent CT chest was concerning for a lung mass causing a post obstructive pneumonia. Fine needle aspiration of lymph node on bronchoscopy as subsequently identified as metastatic poorly differentiated squamous cell carcinoma. Blood cultures on admission were subsequently positive for MSSA. He was initially treated with intravenous Zosyn to cover both post obstructive pneumonia and MSSA bacteremia. This was subsequently switched to cefazolin to cover just the MSSA bacteremia on 03/07. Subsequent blood cultures continued to be positive (most recently from 03/05). On further investigation he had been having right knee and left shoulder pain since prior to admission. Aspiration of both of these joints was purulent and concerning for infection. He had a right knee total arthroplasty in 2016. No left shoulder hardware but he had rotator cuff surgery 12 years ago with post operative infection requiring washout at that time. Review by orthopedics felt the complexity of this case warranted a tertiary care center and he has been accepted by medicine with ortho consult at [facility] for ongoing treatment. Medication list below is his outpatient medications. Please see separate scanned sheet for his inpatient medication list. On discharge please arrange follow up wtih Dr Howard and Dr Reagan for his squamous cell lung carcinoma (numbers below). Total Time Total Time Spent Total Time Spent (In Minutes): 40 Discharge Plan Discharge Items Patient Disposition: Transfer Acute Care Hospital Reason For Visit: LEFT LOWER LOBE PNEUMONIA Discharge Diagnosis: MSSA bacteremia Left shoulder joint infection Right knee total knee arthroplasty infection Non-small cell lung cancer Left lower lobe post-obstructive pneumonia Activity: Resume your previous activity Non-emergency contact: Primary Care Provider Call non-emergency contact if: you have any medication questions and your symptoms worsen Follow-up/Referrals: Lakhwinder Palomino III, MD [Primary Care Provider] - Isaac Reagan DO [Physician] - Raymond Howard MD [Physician] - Diet: Carb Consistent or DM2 Addtl Attending Provider Instructions: Yaya Ellis is a 70 year old male admitted to [facility] from March 02 - 2020 due to fever, chills, diarrhea. He was initially treated for a left lower lobe pneumonia. Subsequent CT chest was concerning for a lung mass causing a post obstructive pneumonia. Fine needle aspiration of lymph node on bronchoscopy as subsequently identified as metastatic poorly differentiated squamous cell carcinoma. Blood cultures on admission were subsequently positive for MSSA. He was initially treated with intravenous Zosyn to cover both post obstructive pneumonia and MSSA bacteremia. This was subsequently switched to cefazolin to cover just the MSSA bacteremia on 03/07. Subsequent blood cultures continued to be positive (most recently from 03/05). On further investigation he had been having right knee and left shoulder pain since prior to admission. Aspiration of both of these joints was purulent and concerning for infection. He had a right knee total arthroplasty in 2016. No left shoulder hardware but he had rotator cuff surgery 12 years ago with post operative infection requiring incision and drainage at that time. Review by orthopedics felt the complexity of this case warranted a tertiary care center and he has been accepted by medicine with ortho consult at [facility] for ongoing treatment. Medication list below is his outpatient medications. Please see seperate scanned sheet for his inpatient medication list. On discharge please arrange follow up wt Dr Howadr and Dr Reagan for his squamous cell lung carcinoma (numbers above). Pending Studies at Discharge: Yes Stand-Alone Forms: My [facility] Skilled Items Patient informed of condition?: Yes DNR: No Discharge Level of Care: Other Communicable Disease: No Discharge Prognosis: Stable Lines: Peripheral IV Urinary Catheter: No Medications and DC Order Prescriptions: Continued (DME) OneTouch Verio test strips Strip See Rx Instructions .ROUTE .MEDSUPPLY Qty: 100 RF: 3 (DME) blood-glucose meter [OneTouch Verio Meter] Misc See Rx Instructions .ROUTE .MEDSUPPLY Qty: 1 RF: 0 (DME) lancets [OneTouch UltraSoft Lancets] Misc See Rx Instructions .ROUTE .MEDSUPPLY Qty: 200 RF: 3 Lantus Solostar U-100 Insulin 100 unit/mL (3 mL) insulin pen 35 unit subcut QAM 90 Days Qty: 45 RF: 3 (DME) pen needle, diabetic [BD Ultra-Fine Orig Pen Needle] 29 gauge x 1/2" needle See Rx Instructions .ROUTE .MEDSUPPLY Qty: 100 RF: 3 ibuprofen [Advil] 200 mg tablet 400 mg PO Q4H RF: 0 pioglitazone 45 mg tablet 45 mg PO QAM RF: 0 losartan 25 mg tablet 25 mg PO QAM RF: 0 ezetimibe [Zetia] 10 mg tablet 10 mg PO QAM RF: 0 rosuvastatin 5 mg tablet 5 mg PO QAM RF: 0 Discharge Orders: Discharge Order (Routine); Ordered 03/08/21 Ordered By: Sylvain Hawk/Other Patient Handouts: A1C, Managing Type 2 Diabetes Admission Data Admit Date/Time: 03/02/21 08:03 Attending Provider: Sylvain Hodge Admit Provider: Payam Mclean Primary Care Provider: Lakhwinder Palomino III Other Providers: Payam Mclean ; Grant Page ; Tyson Urban ; Mihir Hughes I. ; Sylvester Serrano II ; Aleshia Nunez ; Santosh Rose ; Isaac Hughes Other Interventions: Discharge Summary Assessment (RN) Last Done: 03/08/21 18:47 Coding Level of Care Code D/C DAY MANAGEMENT >30 MINS Diagnoses MSSA bacteremia R78.81; B95.61 Non-small cell cancer of left lung C34.92 Pneumonia J18.9 UTI (urinary tract infection) N39.0 Diabetes mellitus type 2, uncontrolled E11.65 Glycemic state: with hyperglycemia Acute kidney injury N17.9 Hypomagnesemia E83.42 Hyperlipidemia E78.5 Hypertension I10 Elevated PSA R97.20 Elevated bilirubin R17
--- NOTE | 2021-03-08 16:30 | Progress Notes ---
CHIEF COMPLAINT: Followup of his swollen right knee replacement and left shoulder pain. SUBJECTIVE: A 70-year-old gentleman admitted with bacteremia from multiple sources. He has got unde rlying pneumonia, urinary tract infection, bacteremia and a swollen right knee and a swollen and pain ful left shoulder. We aspirated his right knee yesterday and his left shoulder. He says he is feeli ng quite a bit better today, pain mallory. We have been trying to get him transferred to a tertiary [facility] center for more complex treatment in infectious disease and orthopedic management. He denies any f mikal. No new complaints otherwise. His knee and shoulder do feel somewhat better. OBJECTIVE: VITAL SIGNS: Temperature 37.0. Vital signs are stable. GENERAL: Shows a pleasant, elderly male. He is lying in bed and looks pretty comfortable. EXTREMITIES: Examination of the right knee reveals incision to be healed nicely. There is no rednes s. He does have a recurrence of his knee effusion. He can bend his knee better from 0-60 without to o much pain. He can do a straight leg raise. Examination of the left shoulder reveals mild swelling. It does seem to be better than it was yester day. He has limited motion due to pain and dysfunction. LABORATORY DATA: White cell count 8.37. Sed rate and C-reactive protein were markedly elevated. Knee aspirate results. The aspirate results reveal 32,000 white cells with 92% polys. Shoulder aspirate revealed a 41,000 white cells with 96% polys. Both aspirates are showing pseudogou t crystals. Knee culture results are no growth to date. Shoulder culture showing Staph species. ASSESSMENT: A 70-year-old gentleman with multiple medical comorbidities, now 5 years out from a righ t total knee replacement and 12 years out from previous rotator cuff repair, which was complicated by infection at that time with recurrent bacteremia from multiple potential sources. He has got underl staci pneumonia, he has got a urinary tract infection and he has got a swollen right knee and the left shoulder. Interestingly, the knee and shoulder aspirates both show pseudogout, which could be a johnathan rce of inflammation and swelling, and effusions in and of themselves. With his bacteremia, we almost assumed that this was due to bacterial infection of the knee and shoulder, but I am less convinced t hat now, but still highly likely. The fact that the shoulder is now growing something certainly make s that almost certain. PLAN: The patient is currently on IV antibiotics. I think it is appropriate to transfer him to a [facility] center for more expert opinion regarding possible infection and need for irrigation and d ebridement of both his knee and his shoulder versus resection arthroplasty of the knee. That is a ve ry big operation to be undertaking in a patient in this condition. The cultures as well as the knee results showed no growth to date. Certainly being on antibiotics they may not grow anything even wit h some infection. This only clouds the issue. In any case, I think it is most appropriate to do a t ransfer to a [facility] care center where there is a formal infectious disease staff as well as the [facility] staff specialized in joint reconstruction. He is most certainly going to likely need his tracie ulder washed out and likely some degree of surgical management of his knee. We would be happy to ass ist in providing any information necessary. Any orthopedic questions can be directed to me at [phone] . Job ID: [id number]
== END 2021-03-08 19:20 | disposition short-term general hospital (02) | DRG 167 ==
LOC: ED 05:32 → SUATTDRO 08:03 → 3N 08:03

== ENCOUNTER 2022-04-27 08:04 | Observation (INO) ==
--- NOTE | 2022-03-29 14:32 | PAT Medication Instructions ---
Medication Instructions Date of Service March 29, 2022 Home Medications Medication Instructions Recorded blood sugar diagnostic (OneTouch #100 ea 11/18/20 Verio test strips) blood-glucose meter (OneTouch #1 ea 11/18/20 Verio Meter) lancets (OneTouch UltraSoft #200 ea 11/18/20 Lancets) pen needle, diabetic 29 gauge x #100 ea 11/18/20 1/2" (BD Ultra-Fine Original Pen Needle) oxycodone 15 mg tablet 15 mg PO Q4H PRN pain #30 tabs 04/11/21 blood sugar diagnostic (OneTouch Verio test strips) blood-glucose meter (OneTouch Verio Meter) lancets (OneTouch UltraSoft Lancets) pen needle, diabetic 29 gauge x 1/2" (BD Ultra-Fine Original Pen Needle) ezetimibe 10 mg tablet (Zetia) 10 mg PO QAM pioglitazone 45 mg tablet 45 mg PO QAM oxycodone 15 mg tablet 15 mg PO Q4H PRN insulin glargine 100 unit/mL (3 mL) subcutaneous pen (Lantus Solostar U-100 Insulin) 40 unit subcut QAM apixaban 5 mg tablet (Eliquis) 5 mg PO BID rosuvastatin 5 mg tablet 5 mg PO QAM ASK your prescriber and surgeon apixaban 5 mg tablet (Eliquis) 5 mg PO BID(in order for spinal or epidural anesthesia, Eliquis needs to be stopped 72 hours/3 days before surgery. Please check if okay with doctor that prescribes this to you) DO NOT take the morning of surgery pioglitazone 45 mg tablet 45 mg PO QAM Take morning of surgery With a small sip of water, OTHERWISE NOTHING TO EAT OR DRINK AFTER MIDNIGHT: ezetimibe 10 mg tablet (Zetia) 10 mg PO QAM oxycodone 15 mg tablet 15 mg PO Q4H PRN(if needed) rosuvastatin 5 mg tablet 5 mg PO QAM Take evening before surgery oxycodone 15 mg tablet 15 mg PO Q4H PRN(if needed) Insulin Dependent Diabetic Patients * Test your blood sugar the morning of surgery * If Blood Sugar is GREATER THAN 150, take HALF of your regular dose of: insulin glargine 100 unit/mL (3 mL) subcutaneous pen (Lantus Solostar U-100 Insulin)- 20 unit subcut QAM. * If Blood Sugar is LESS THAN 150, DO NOT TAKE ANY: insulin glargine 100 unit/mL (3 mL) subcutaneous pen (Lantus Solostar U-100 Insulin). Other Notes If you have any questions please call us at [phone] or [phone] or [phone] or [phone]
--- NOTE | 2022-04-09 11:03 | Anesthesiology Consultation ---
Date of Service April 09, 2022 Assessment & Plan (1) Encounter for pre-operative examination: - COVID screening: Per assessment on 04/09: No known COVID-19 positive contacts or current COVID-19 related symptoms. Travel screen negative. Patient vaccinated. At surgeon discretion if preop Covid testing being done. - Check BSG AM DOS - Pulmonary office visit (10/31/21): "Abnormal CT scan: The findings may be consistent with radiation and chemotherapy. He will continue to follow with medical oncology.. Patient does have a small to moderate-sized pleural effusion on that side however he is asymptomatic. I would defer intervention unless the patient were overtly symptomatic. If you develop chest pain, cough, or progressive shortness of breath, consideration for thoracentesis may be appropriate. This would necessitate stopping the Eliquis for 24 to 48 hours.. He has follow-up scheduled with his medical oncologist later this week. If the status of the pleural fluid would manager exchange, I would be happy to arrange an outpatient thoracentesis for him. At this point time I would be happy to see the patient back on an as-needed basis. He can continue to follow with his primary care provider as well as his medical oncology team." - Heme/onc office visit (09/21/21): "He is to have right knee replacement surgery.. Labs reviewed and within acceptable range. PLT's are low at 101, but no issues w/ bleeding. Blood glucose levels are significantly elevated. Pt is asymptomatic. He prefers to follow up w/ PCP regarding management of DM II.. Dr. Moore had sent a fax to me on 09/19/21 asking if pt should continue on Eliquis.. She was concerned because he had senile purpura on his arms. The pt denies any issues w/ bleeding e.g. epistaxis, hematuria, melena, hematochezia. He does bruise easily at baseline. He attributes senile purpura on his arms to scratch himself due to dry skin.. The recommended dose of Eliquis for tx of DVT is 5 mg po bid. I discussed this w/ pt and his . They are agreeable to continue w/ the Eliquis" > glucose at that time was 266. On preop labs, glucose 209 and A1C 7.5% 03/2022. - Chronic thrombocytopenia: Plts in the 90s x years. Most recently 94 on 04/03/22 labs. S/P Right TKA (12/06/15), done under general anesthesia (Grade 2 view, MAC#3, ETT 8.0 at [facility]- No issues noted per post-op anesthesia progress note). Per operative report, surgery was done under general anesthesia d/t "chronic thrombocytopenia." Preop plts at that time were 99. At anesthesiologist discretion AM DOS if recheck level needed prior to surgery from their perspective. Discussed SAB vs. GA. Ultimate anesthesia to be determined by an esthesiologist DOS. - Apixaban/Eliquis instructions: patient made aware that in order for spinal anesthesia, Apixaban/Eliquis needs to be held 72 hours/3 days prior to surgery. Patient voiced understanding/will check if okay with prescriber. Chart Review Chart Review: Acceptable Risk for Surgery (pending evaluation AM DOS) and Patient seen in Pre Admission Testing Teaching & Discussion Pre-Anesthesia Teaching/Discussion Notes: Instructed NPO after midnight before surgery,except medications with 15 cc of water. Medication instructions provided according to the PAT guidelines. History Surgery Operation Date: 04/27/22 10:55 Proposed Procedures p Right Knee Antibiotic Spacer Removal, Revision Total Knee Arthroplasty - Isaac Hughes MD Height/Weight Height: 6 ft Weight: 111.4 kg Allergies Allergy/AdvReac Type Severity Reaction Status Date / Time VANDA Inhibitors Allergy Unknown Unknown Verified 04/03/22 14:20 capsaicin Allergy Unknown Unknown Verified 04/03/22 14:20 celecoxib Allergy Unknown Pruritis Verified 04/03/22 14:20 diclofenac Allergy Unknown Unknown Verified 04/03/22 14:20 Diclopak Allergy Unknown unknown Verified 12/13/17 10:15 reaction Cbvecjx-TPU-VeC Reductase AdvReac Unknown Myalgias Verified 04/03/22 14:20 Inhibitor [Chmkypk-Psb-Iyu Reductase Inhibitor] Medications Home Medications Medication Instructions Recorded Confirmed Last Taken blood sugar diagnostic (OneTouch #100 ea 11/18/20 10/31/21 Unknown Verio test strips) blood-glucose meter (OneTouch #1 ea 11/18/20 10/31/21 Unknown Verio Meter) lancets (OneTouch UltraSoft #200 ea 11/18/20 10/31/21 Unknown Lancets) pen needle, diabetic 29 gauge x #100 ea 11/18/20 10/31/21 Unknown 1/2" (BD Ultra-Fine Original Pen Needle) ezetimibe 10 mg tablet (Zetia) 10 mg PO QAM 03/02/21 03/29/22 03/02/21 pioglitazone 45 mg tablet 45 mg PO QAM 03/02/21 03/29/22 03/02/21 oxycodone 15 mg tablet 15 mg PO Q4H PRN pain #30 tabs 04/11/21 03/29/22 Unknown insulin glargine 100 unit/mL (3 40 unit subcut QAM 05/08/21 03/29/22 Unknown mL) subcutaneous pen (Lantus Solostar U-100 Insulin) apixaban 5 mg tablet (Eliquis) 5 mg PO BID 10/12/21 03/29/22 Unknown rosuvastatin 5 mg tablet 5 mg PO QAM 10/12/21 03/29/22 Unknown Imfinzi 04/09/22 Unknown Past Medical History Medical History Deep vein thrombosis (DVT) of popliteal vein of right lower extremity Right popliteal DVT (06/2021) Diabetes mellitus type 2, uncontrolled IDDM Elevated PSA Hyperlipidemia Hypertension Malignant neoplasm of lower lobe, left bronchus or lung Imfinzi every [address] Huynh ([facility]) Obesity Polycythemia vera No recent issues Thrombocytopenia Plts baseline 90s x years per chart review Exercise / Class Metabolic Activity II 4-5 Yardwork/Stairs/Walk up hill (one FS (no CP, no SOB)) Past Family History Family History Father , Passed Age 64 Kidney disease Mother , Passed Age 74 Colorectal cancer Brother , Passed Age 88 Pancreatic cancer Brother Colorectal cancer Sister Breast cancer Brother No problems noted. Sister No problems noted. Sister No problems noted. Other Has no children Past Surgical History Surgical History H/O total knee replacement Right TKA (12/06/15): Grade 2 view, MAC#3, ETT 8.0 at [facility]. No issues noted per post-op anesthesia progress note. History of arthroscopy of right knee History of bronchoscopy EBUS and Fine Needle Aspiration of Lymph Node of the Mediastinum History of dermoid cyst excision History of knee replacement removal of prosthesis History of shoulder surgery Left Infection of total right knee replacement Right Knee Periprosthetic Joint Infection s/p Incisional Debridement/Irrigation/Arthotomy Septic joint of left shoulder region Left Shoulder Septic Arthritis s/p Arthroscopic Irrigation (02/2021) Past Anesthesia History No Family Hx of Anesthesia Complications and Other (Awareness with previous knee surgery) History of PONV No Hx of PONV and No Hx of Motion Sickness Social History Smoking Status: Former smoker tobacco type: cigars Do You Dip or Chew Tobacco: No Smoking End Date: Quit 02/2021 Hx Alcohol Use: Yes Alcohol type: beer and hard liquor alcohol intake frequency: a few times a week Hx Substance Use: Yes substance use type: does not use Review of Systems Patient denies chest pain, shortness of breath, dyspnea on exertion, reflux, cough, wheezing, palpitations. Physical Exam Vital Signs VITALS BP 135/69 P 57 TEMP 98.2 SP02 98%RA RESP 16 PHYSICAL Full cervical extension range of motion. Full TMJ range of motion. TMD 4 finger breaths Mallampati Score 3 Dentition: upper/lower full denture (with upper implants) Lungs: clear throughout to auscultation except diminished left lower lung base Cardiac: regular rate and rhythm, no murmurs noted Spine: normal Carotid arteries: negative bruit Extremities: no edema Lab Results Anesthesia Preop Results Results Anesthesia Widget: PT 11.2 Seconds (9.0-12.0) 04/09/22 PTT 28.2 Seconds (21.0-31.0) 04/09/22 INR 1.1 (0.9-1.1) 04/09/22 HA1c 7.5 % (4.5-5.6) H 04/09/22 Blood Type A Positive 04/09/22 Antibody Screen NEGATIVE 04/09/22 Testing Laboratory Results 03/20/22 TSH 1.02 (wnl) 04/03/22 WBC 6.24 H/H 14.2/44.0 PLATELETS 94 SODIUM 138 POTASSIUM 4.4 CHLORIDE 103 CO2 28 BUN 15 CREATININE 1.1 GLUCOSE 209 TSH 1.14 Electrocardiogram Date: 11/15/21 Findings: + NSR @ (61) Echocardiogram Date: 03/04/21 EF 60 to 65%. No regional motion abnormality. No significant valvular disease. Grade 1 diastolic dysfunction. Other Testing Chest CT (01/31/22) Stable posttreatment changes in the left hemithorax with no evidence of progressive disease. Findings suggestive of stable treated primary lung cancer. Coronary artery calcification present. Stable partial atelectasis of the lingula and more extensive partial atelectasis of the left lower lobe. Stable compensatory hyperinflation of the left upper lobe in the superior segment of the left lower lobe. Slightly decreased mild loculated pleural effusion in the base of the left hemithorax and stable mild diffuse linear thickening of the costal pleura with no suspicious nodular thickening. Previously noted minimal left pneumothorax has resolved. No right pleural effusion. Reviewed by hematology/oncology (02/07/22): "on CT scan.. Stable post treatment changes in the left hemithorax with no evidence of progress disease." COVID-19 Risk Screen Screening Information COVID-19 Screen Date: 04/09/22 Exposure 21 Days Family/Household +COVID Last 21 Days: No Exposure 10 Days Any COVID Exposure Last 10 Days: No Symptoms Last 10 Days Experienced COVID Sx Last 10 Days: No + COVID 0-90 Days COVID + in Last 0-90 Days: No
--- NOTE | 2022-04-22 08:59 | History and Physical Report ---
DATE OF ADMISSION: 04/27/2022 CHIEF COMPLAINT: Right knee replacement complicated by infection. HISTORY OF PRESENT ILLNESS: The patient is a 71-year-old gentleman well [facility]. He did quite well for several years afterwards then develop ed acute onset of infection when he had some lung cancer and pneumonia and was on immunosuppressive m edicines. He developed a septic knee as well as a septic left shoulder. He was at our institution a nd referred to [facility] due to the complex nature of his problem with underlying cancer, immunosuppr ession and multiple joint infections. He underwent arthroscopic irrigation and debridement of his sh oulder and eventually had his right knee replacement taken out and an antibiotic spacer placed [address] Bandar Bae. He had 6 weeks of IV antibiotics. He has recovered from this. He has been infection free for the past several months and off antibiotics for quite some time. His lung cancer has been treated and under control. He would now like to have his knee spacer taken out and convert ed to a total knee replacement. He does have some pain, but not severe. He uses a cane to walk. Hi s cultures grew out methicillin sensitive staph. PAST MEDICAL HISTORY: Significant for: 1. Hypertension. 2. Elevated cholesterol. 3. Diabetes. 4. History of a blood clot on Eliquis. 5. Lung cancer, under control. 6. Mild obesity. 7. Low back pain/sciatica. PAST SURGICAL HISTORY: Include: 1. Right knee replacement done on 12/06/2015. 2. Irrigation and debridement of the left shoulder 03/09/2021 done at [facility]. 3. I and D and placement of antibiotic spacer 03/14/2021 at [facility]. 4. Bronchoscopy. 5. Dermoid cyst excision. 6. Right knee arthroscopy. ALLERGIES: PEANUTS, VANDA INHIBITORS, CAPSAICIN, CELEBREX, DICLOFENAC, STATINS. CURRENT MEDICATIONS: Include: 1. Eliquis. 2. Zetia. 3. Insulin. 4. Oxycodone. 5. Rosuvastatin. 6. Pioglitazone. SOCIAL HISTORY: A 71-year-old male. He is . Does not smoke. FAMILY HISTORY: Noncontributory. REVIEW OF SYSTEMS: Significant for a DVT in the past, on Eliquis. He is on insulin for diabetes. N o chest pain or shortness of breath. He states his lung cancer is under control. PHYSICAL EXAMINATION: GENERAL: Shows a pleasant middle-aged male. Looks to be in reasonably good health. HEENT: Benign. NECK: Supple. No lymphadenopathy. LUNGS: Clear to auscultation. HEART: Regular rate and rhythm. ABDOMEN: Soft, nontender, nondistended. EXTREMITIES: Grossly neurovascularly intact except as follows. Examination of the right knee reveals the patient ambulates with the use of a cane. He does limp on his right side. Incision is healed nicely. Really minimal knee effusion. Range of motion 0-110. T here is no gross instability. Good straight leg raise. No pain with hip motion. X-RAYS: X-rays of the knee reviewed. It shows a cemented articulating spacer in place. He has a fa irly thick piece of polyethylene. No signs of problems. ASSESSMENT: A 71-year-old gentleman 6 years out from initial knee replacement and the year plus out from placement of antibiotic spacer for multiple joint infection with methicillin sensitive staph. 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 He is strong ly desiring to have his knee replaced. PLAN: We talked about treatment options including leaving this in place. We also talked to him abou t going back to [facility] and have this done, but he really wants to have it done locally. He did no t really get along with the doctors at [facility] for unclear reasons. In light of this, we will proc eed with removal and replacement of the revision knee implant. The risks and benefits of this proced ure were explained to the patient and include but not limited to DVT, PE, , infection, neurologi telma injury, vascular injury, bleeding problem, pain, limited range of motion, stiffness, failure to r elieve the symptoms, recurrent infection, need for further surgery in the future, etc. The patient u nderstands and desires to proceed. Informed consent was obtained. He will need to stop his Eliquis 3 days preop. We will give him a standard antibiotic prophylaxis pr eoperatively, but we will likely give him a 3-6 months of p.o. antibiotics afterwards. We will use E liquis for DVT prophylaxis. Job ID: [id number]
[~2022-04-27 08:04] MED LIST changes: +ACETAMINOPHEN 500 MG TAB PO SCH; +BUPIVACAINE 0.5 % 5 MG/1 ML PF 10ML VIAL ONE; +BUPIVACAINE LIPOSOME/PF 266 MG, BUPIVACAINE/EPINEPHRINE 50 ML, SODIUM CHLORIDE 0.9% 30 ... INFIL SCH; -EZET10TA63 PO; +FAMOTIDINE 20 MG TAB PO SCH; -GLC/500 PO; -GLIP-199 PO; -LOSA25TA18 PO; +LR 500ML BOLUS, THEN 15ML/HR IV SCH; +LR 60ML/HR IV SCH; +METOCLOPRAMIDE HCL 10 MG TABLET PO SCH; -NIAC500T11 PO; -PIOG1TAB20 PO; +ROPIVACAINE 0.5% 5 MG/ML 30 ML VIAL ONE; -SITA100T3 PO; +TRANEXAMIC ACID 1,000 MG **IV Intra-op IV SCH; +ceFAZolin 2000MG 2,000 MG/15 ML SYR IV SCH
--- NOTE | 2022-04-27 08:58 | History & Physical Bridge Note ---
Date of Service April 27, 2022 History & Physical Bridge Note I have examined the patient, reviewed the History & Physical and in the interval since the performance of the History & Physical I have noted the following changes of clinical significance: no changes noted
[2022-04-27] MEDS ORDERED: ONDANSETRON INJ 2 MG/ML 2 ML VIAL IV PRN ×2 (10:02→15:49)
[2022-04-27] MEDS ORDERED: MIDAZOLAM HCL 1 MG/ML 2ML VIAL ONE (10:02)
[2022-04-27] MEDS ORDERED: ATROPINE SULFATE 0.1 MG/ML 10ML SYR IV PRN (10:02)
[2022-04-27] MEDS ORDERED: ePHEDrine sulfate 50 MG/ML AMP IV PRN (10:02)
[2022-04-27] MEDS ORDERED: fentaNYL citrate 100 MCG/2 ML VIAL ONE ×2 (10:35→12:29)
[2022-04-27] MEDS ORDERED: NEOSTIGMINE METHYLSULFATE 1 MG/ML 10ML VIAL ONE (10:39)
[2022-04-27] MEDS ORDERED: ONDANSETRON INJ 2 MG/ML 2 ML VIAL ONE (10:39)
[2022-04-27] MEDS ORDERED: ROCURONIUM BROMIDE 10 MG/ML 5 ML VIAL IV ONE (10:39)
[2022-04-27] MEDS ORDERED: PROPOFOL IV EMULSION 10 MG/ML 20 ML VIAL IV ONE ×2 (10:39→11:01)
[2022-04-27] MEDS ORDERED: GLYCOPYRROLATE 0.2 MG/ML VIAL ONE (10:39)
[2022-04-27] MEDS ORDERED: BUPIVACAINE LIPOSOME 1.3% 266 MG/20 ML VIAL ONE (11:27)
[2022-04-27] MEDS ORDERED: SODIUM CHLORIDE 0.9% PF 50 ML VIAL ONE (11:27)
[2022-04-27] MEDS ORDERED: BUPIVACAINE/EPINEPHRINE 0.25% 1:200,000 30 ML VIAL ONE (11:27)
[2022-04-27] MEDS ORDERED: VANCOMYCIN HCL 1000MG/20ML VIAL ONE (11:28)
[2022-04-27] MEDS ORDERED: PHENYLEPHRINE 100MCG/ML 5ML SYR ONE (13:22)
[2022-04-27] MEDS ORDERED: KETOROLAC 30 MG/ML VIAL ONE (14:24)
[2022-04-27] MEDS ORDERED: HYDROmorphone INJ 2 MG/ML SYR/VIAL ONE (14:33)
--- NOTE | 2022-04-27 15:05 | Operative Report ---
PG Post Operative Report Pre & Post Diagnosis Operation Date: 04/27/22 10:40 Pre-Op Diagnosis: Infection Right Total Knee Replacement Post-Op Diagnosis: Infection Right Total Knee Replacement I identified the patient and participated in the time-out.: Yes Procedure Operation Date: 04/27/22 10:40 Actual Procedures p Right Knee Antibiotic Spacer Removal, Revision Total Knee Arthroplasty(Right) - Isaac Hughes MD Surgeon Isaac Hughes MD Marble Helper Lorenzo Hall PA-C Estimated Blood Loss 100 Findings Consistent with Post-Op Diagnosis Operative findings revealed a antibiotic spacer in place. There is no clinical signs of infection. Specimens Synovium sent for frozen section which revealed less than 5 polys per high-power field. Fluid sent for stat gram stain aerobic, aerobic, anaerobic culture. Anesthesia Type General Regional Complications none Disposition Accompanied Patient To Recovery: No Indications Patient 71-year-old gentleman well-known to me from a previous right knee replacement done about 6 years ago. He did quite well until about a year and a half ago when he developed lung cancer pneumonia. He developed multiple joint infection with septicemia. He had a right knee infection and a left shoulder infection. Was transferred to [facility] where he is cared for. He had underwent arthroscopic irrigation debridement of the shoulder and I&D and eventual removal of the right knee replacement and placement of antibiotic spacer. He has been treated for his lung cancer and under control. He is now elected proceed with removal of the antibiotic spacer. He was treated with 6 w eeks of IV antibiotics and all other parameters suggest the infection is cleared. Description of Procedure Operative implants consist: 1. Biomet Vanguard 360 femoral component size 67.5 with a 80 x 19mm offset stem with a 2.5 mm offset with 10 mm medial and 10 mm lateral augments. 2. Biomet 360 size 75 tibial tray with a 16 x 80 mm offset stem, 5 mm offset, small cruciate wing. 3. 18 mm posterior stabilized polyethylene insert. The patient was taken the operating, identified, placed on the operating table supine position protectors were properly padded identified by anesthesia team. General anesthetic was applied by anesthesia team. A right thigh turn was then placed. Right lower extremities then prepped and draped in usual sterile fa shion. The right leg was exsanguinated with use of an Esmarch interspaced at 300 mmHg. An anterior posterior the right knee was then performed using the previous incision. Sharp dissection Through subcutaneous tissue down the extensor mechanism. A medial parapatellar throbbed incision was made. Some fluid was sent off for stat gram stain and aerobic and anaerobic culture. As some subperiosteal dissection was carried medially. I did a complete synovectomy of the suprapatellar pouch and medial lateral gutters. The synovium was sent off for frozen section which revealed less than 5 polys per high-power field. We then subluxated the patella laterally and flex the knee. The saw was then used to disrupt the interface of the femoral implant and was removed without too much damage at all. A similar procedure was done on the tibia and it was removed without difficulty. We then spent some time removing all extraneous cement. I irrigated the wound extensively. I then prepared the tibia 60 mm stem. The IM cutting guide was placed and the proximal tibial cut was made to take an additional 2 mm of bone off the tibia. Was sized to a size 75. The tibia was then prepared for a 75 tray with a 80 x 16 mm offset stem with a 5 mm offset and a small cruciate wing. This was assembled and placed in the tibia and fit nicely. Attention drawn the femur. The distal femur stem with a sharp drill. I reamed up to a size 19. The 5 degree valgus cutting guide was placed and the distal cut was made to take about 5 mm of additional tissue off the distal femur. We then sized this to a 67.5. The AP cutting guide was placed with a 2.5 mm offset setting. The anterior cut, anterior chamfer, posterior cut, posterior chamfer cuts were made. The box cutting guide was assembled and the box cut was made. The implant was assembled and placed and fit quite nicely. We then trialed the knee. It was still quite lax in extension. We initially tried a 5 mm distal augment but was still ac tually placed 10 mm distal augments. This provided good flexion and extension match and good stability and excellent range of motion. We used an 18 mm insert. We elect to place these implants. Nupathe all trial implants were removed. I irrigated the wound extensively. Double batch of Palacos G cement was mixed with 2 g of vancomycin. The femoral implant was first placed cementing the metaphyseal segment followed by the tibial tray. The knee was brought out in full extension until cement hardened. Final cement check was then performed. Attention drawn toward closing. Nupathe wound was irrigated copious pulsatile lavage solution. I did inject locally with 100 cc of a combination of 20 cc Exparel, 30 cc normal saline, 50 cc of quarter percent Marcaine with epinephrine. Patient did receive 1 g tranexamic acid per the tourniquet was let down for turn 520 minutes. Hemostasis reduced electrocautery. Extensor mechanism closed with a combination 1 PDS suture #1 Vicryl suture in a [id number] fashion for the extensor mechanism checked found intact and subcutaneous tissue then closed with 2 Dexon suture in a buried fashion skin was closed skin zoila. Legs then cleaned and dried a sterile dressing was Xeroform, 4 fours, sterile cast padding, Liu bandage applied. Patient transferred to recovery room after being brought out of general anesthesia in stable condition. He Tolerated procedure well and there are no complications. Lorenzo Hall, physician customer care assistant, was present for the entire procedure. Assistance was required for proper patient positioning, prepping and draping, surgical exposure, removal of the implants, placement of the new implants, preparation of the bone, closure of the wound, placement of sterile bandage. I attest to the content of the Intraoperative Record and any orders documented therein. Any exceptions are noted below.
[2022-04-27] MEDS: fentaNYL citrate 100 MCG/2 ML VIAL IV PRN ×3 (15:08→15:22)
--- NOTE | 2022-04-27 15:15 | Anesthesiology Progress Note ---
Date of Service April 27, 2022 Anesthesia Post Procedure Vital Signs Vital Signs: Temp Pulse Pulse Resp BP BP Pulse Ox 04/27/22 15:05 61 16 158/84 H 100 04/27/22 14:55 61 19 169/64 H 100 04/27/22 14:49 36.9 C 66 13 157/69 H 100 04/27/22 11:30 54 L 14 164/69 H 100 04/27/22 11:25 59 L 16 157/73 H 100 04/27/22 11:20 56 L 13 146/70 H 100 04/27/22 11:10 56 L 13 161/72 H 100 04/27/22 08:43 36.6 C 58 L 18 163/74 H 99 O2 Del Method O2 Flow Rate 04/27/22 15:05 Oxymask 9 04/27/22 14:55 Oxymask 9 04/27/22 14:49 Oxymask 9 04/27/22 11:30 Room Air 04/27/22 11:25 Room Air 04/27/22 11:20 Room Air 04/27/22 11:10 Room Air 04/27/22 08:43 Room Air Pain Intensity Right Knee: Pain Intensity: 2 Transfer of Care Handoff Completed per policy Notes Mental Status: alert / awake / arousable Patient Amnestic to Procedure: Yes Nausea / Vomiting: adequately controlled Pain: adequately controlled Airway Patency, RR, SpO2: stable & adequate BP & HR: stable & adequate Hydration State: stable & adequate Anesthetic Complications: no major complications apparent and Pt Satisfied with anesthetic care Notes: The patient is awake and comfortable.
--- NOTE | 2022-04-27 15:31 | XRay Report ---
RIGHT KNEE 2 VIEWS History: Right total knee arthroplasty. Postop. FINDINGS: The patient is status post revision of a right total knee arthroplasty. The hardware is int act. No fracture or dislocation. Skin zoila are in place. IMPRESSION: Status post revision of a right total knee arthroplasty. No evidence for hardware complication. ACT 112: Negative or not required by law. Electronically signed by: Uri Young M.D. 04/27/2022 3:30 PM
[2022-04-27] MEDS ORDERED: HYDROmorphone INJ 1 MG/ML SYRINGE IV PRN (15:49)
[2022-04-27] MEDS ORDERED: PHARMACY GLYCEMIC MGMT CONSULT PRN (15:49)
[2022-04-27] MEDS ORDERED: METOCLOPRAMIDE HCL INJ 5 MG/ML 2 ML VIAL IV PRN (15:49)
[2022-04-27] MEDS ORDERED: NALOXONE HCL 0.4 MG/1 ML VIAL/CARP IV PRN (15:49)
[2022-04-27] MEDS ORDERED: GLUCOSE 40% GEL 15 GM TUBE PO PRN (15:49)
[2022-04-27] MEDS ORDERED: GLUCAGON FOR INJ 1 MG VIAL SQ PRN (15:49)
[2022-04-27] MEDS ORDERED: DEXTROSE 50% 50 ML SYRINGE IV PRN (15:49)
[2022-04-27] MEDS ORDERED: MAGNESIUM HYDROXIDE SUSP 30 ML UDC PO PRN (15:49)
[2022-04-27] MEDS ORDERED: oxyCODONE HCL IR 5 MG TAB (IMMEDIATE RELEASE) PO PRN (15:49)
[2022-04-27] MEDS ORDERED: CARBOHYDRATES FOR HYPOGLYCEMIA PO PRN (15:49)
[2022-04-27] MEDS ORDERED: ALUMINUM/MAGNESIUM SUSP 30 ML UDC PO PRN (15:49)
[2022-04-27] MEDS ORDERED: bisacodyL 10 MG SUPP PR PRN (15:49)
[2022-04-27] MEDS ORDERED: GLUCOSE 10 TAB/TUBE PO PRN (15:49)
[2022-04-27] MEDS: SODIUM CHLORIDE 0.9% 1000ML 1,000 ML IV SCH (16:07)
[2022-04-27] MEDS: KETOROLAC TROMETHAMINE 15 MG/ML VIAL IV SCH ×2 (16:07→20:48)
[2022-04-27] MEDS: ASCORBIC ACID 500 MG TAB PO SCH (17:29)
[2022-04-27] MEDS: INSULIN ASPART PER UNIT SC SCH ×2 (17:45→21:25)
[2022-04-27] MEDS: ceFAZolin 2000MG 2,000 MG/15 ML SYR IV SCH (20:43)
[2022-04-27] MEDS: DOCUSATE SODIUM 100 MG CAP PO SCH (20:45)
[2022-04-27] MEDS ORDERED: SENNA 8.6 MG TAB PO SCH (21:00)
[2022-04-27] MEDS ORDERED: TRANEXAMIC ACID / 0.7% NACL 1,000 MG/100 ML BAG IV SCH (21:00)
[2022-04-27] MEDS: ACETAMINOPHEN 500 MG TAB PO SCH (21:26)
[2022-04-27] MEDS ORDERED: LANTUS PER UNIT CHARGE SQ ONE (22:00)
[2022-04-28] MEDS: INSULIN ASPART PER UNIT SC SCH ×4 (01:33→12:56)
[2022-04-28 03:09] VITALS: TEMP 99
[2022-04-28] MEDS: SODIUM CHLORIDE 0.9% 1000ML 1,000 ML IV SCH (04:23)
[2022-04-28] MEDS: KETOROLAC TROMETHAMINE 15 MG/ML VIAL IV SCH ×2 (04:24→09:56)
[2022-04-28] MEDS: ceFAZolin 2000MG 2,000 MG/15 ML SYR IV SCH (06:01)
[2022-04-28] MEDS: ACETAMINOPHEN 500 MG TAB PO SCH (06:04)
[2022-04-28 07:27] LABS: Hematocrit (blood only) 37.3 % (40.1-51.0); Hemoglobin 11.9 g/dl (14.0-18.0); Mean Corpuscular Hemoglobin 29.5 pg (25.0-34.0); Mean Corpuscular Hgb Conc 31.9 g/dL (32.0-36.0); Mean Corpuscular Volume 92.6 fL (80.0-100.0); Mean Platelet Volume 10.3 fL (9.4-12.4); Platelet Count 93 K/uL (130-400); Platelet Estimate Decreased (Normal); RDW Coefficient of Variation 14.6 % (11.5-14.5); RDW Standard Deviation 49.1 fL (36.4-46.3); Red Blood Count 4.03 M/uL (4.63-6.08); White Blood Count 7.69 K/ul (4.8-10.8)
[2022-04-28 07:30] LABS: BUN Creatinine Ratio 14.4 (10-20); Calcium 8.4 mg/dl (8.5-10.1); Creatinine Clr Calc Pharmacy 73.3 ml/min; Est GFR (African American) 66.7 ml/min; Est GFR (Non-African American) 57.6 ml/min; Potassium 4.8 mmol/L (3.5-5.1)
[2022-04-28 07:54] VITALS: BP 130/68; PULSE 68; O2SAT 98
--- NOTE | 2022-04-28 08:51 | Progress Notes ---
DATE OF SERVICE: 04/28/2022. SUBJECTIVE: A 71-year-old gentleman, postoperative day 1 from removal of antibiotic spacer and place ment of a revision knee. He is doing pretty well. Had good night. He got up and got around. Feels like he is getting around reasonably well. No chest pain or shortness of breath. Not feeling dizzy or lightheaded. OBJECTIVE: VITAL SIGNS: Temperature 37.2. Vital signs are stable. PHYSICAL EXAMINATION: GENERAL: Shows a pleasant, elderly male. He is sitting up in bed. He is awake, alert and oriented. Looks comfortable. LUNGS: Clear to auscultation. HEART: Regular rate and rhythm. ABDOMEN: Soft, nontender, nondistended. EXTREMITIES: Grossly neurovascularly intact, except as follows: Examination of the right leg reveal s dressing to be clean, dry and intact. Cannot quite do a straight leg raise. Can dorsiflex and chandu ntarflex his foot appropriately. NEUROLOGIC: He is neurologically intact. LABORATORY DATA: Hemoglobin 11.9. Hematocrit 37.3. Electrolytes are stable. ASSESSMENT: A 71-year-old gentleman with multiple medical comorbidities, postop day 1 from removal o f antibiotic spacer and placement of a revision knee. He is doing well. PLAN: 1. DVT prophylaxis includes thigh-high TEDs, SCDs and back on his Eliquis. We will put him on the p rophylactic dose today and then a full dose starting tomorrow. 2. PT, OT, weightbear as tolerated. Right total knee protocol. 3. Pain control, doing okay with current pain regimen. 4. Disposition: Plan is to discharge to home with some home health, depending on how he does today. Job ID: [id number]
[2022-04-28] MEDS ORDERED: LANTUS PER UNIT CHARGE SQ SCH (09:00)
[2022-04-28] MEDS ORDERED: DOCUSATE SODIUM/SENNA 50/8.6MG TAB PO SCH (09:00)
[2022-04-28] MEDS ORDERED: EZETIMIBE 10 MG TABLET PO SCH (09:00)
[2022-04-28] MEDS ORDERED: NON-FORMULARY MEDICATION (Insulin Glargine [Lantus Solostar U-100 Insulin] 100 unit/mL (3 SQ SCH (09:00)
[2022-04-28] MEDS ORDERED: MULTIVITAMIN TAB PO SCH (09:00)
[2022-04-28] MEDS ORDERED: ROSUVASTATIN CALCIUM 5 MG TAB PO SCH (09:00)
[2022-04-28] MEDS ORDERED: TAMSULOSIN HCL 0.4 MG CAP PO SCH (09:00)
[2022-04-28] MEDS: DOCUSATE SODIUM 100 MG CAP PO SCH (09:55)
[2022-04-28] MEDS: ASCORBIC ACID 500 MG TAB PO SCH (09:55)
[2022-04-28] MEDS ORDERED: APIXABAN 2.5 MG TAB PO SCH (15:00)
--- NOTE | 2022-05-01 07:42 | Discharge Summary ---
Date of Service May 01, 2022 Admission HPI (Per Admitting) HISTORY OF PRESENT ILLNESS: The patient is a 71-year-old gentleman well known to me from previous right knee replacement done on 12/06/2015. He did quite well for several years afterwards then developed acute onset of infection when he had some lung cancer and pneumonia and was on immunosuppressive medicines. He developed a septic knee as well as a septic left shoulder. He was at our institution and referred to [facility] due to the complex nature of his problem with underlying cancer, immunosuppression and multiple joint infections. He underwent arthroscopic irrigation and debridement of his shoulder and eventually had his right knee replacement taken out and an antibiotic spacer placed 03/14/[address] Bandar Bae. He had 6 weeks of IV antibiotics. He has recovered from this. He has been infection free for the past several months and off antibiotics for quite some time. His lung cancer has been treated and under control. He would now like to have his knee spacer taken out and converted to a total knee replacement. He does have some pain, but not severe. He uses a cane to walk. His cultures grew out methicillin sensitive staph. PAST MEDICAL HISTORY: Significant for: 1. Hypertension. 2. Elevated cholesterol. 3. Diabetes. 4. History of a blood clot on Eliquis. 5. Lung cancer, under control. 6. Mild obesity. 7. Low back pain/sciatica. PAST SURGICAL HISTORY: Include: 1. Right knee replacement done on 12/06/2015. 2. Irrigation and debridement of the left shoulder 03/09/2021 done at [facility]. 3. I and D and placement of antibiotic spacer 03/14/2021 at [facility]. 4. Bronchoscopy. 5. Dermoid cyst excision. 6. Right knee arthroscopy. ALLERGIES: PEANUTS, VANDA INHIBITORS, CAPSAICIN, CELEBREX, DICLOFENAC, STATINS. CURRENT MEDICATIONS: Include: 1. Eliquis. 2. Zetia. 3. Insulin. 4. Oxycodone. 5. Rosuvastatin. 6. Pioglitazone. SOCIAL HISTORY: A 71-year-old male. He is . Does not smoke. FAMILY HISTORY: Noncontributory. REVIEW OF SYSTEMS: Significant for a DVT in the past, on Eliquis. He is on insulin for diabetes. No chest pain or shortness of breath. He states his lung cancer is under control. Admission Exam (Per Admitting) PHYSICAL EXAMINATION: GENERAL: Shows a pleasant middle-aged male. Looks to be in reasonably good health. HEENT: Benign. NECK: Supple. No lymphadenopathy. LUNGS: Clear to auscultation. HEART: Regular rate and rhythm. ABDOMEN: Soft, nontender, nondistended. EXTREMITIES: Grossly neurovascularly intact except as follows. Principal Diagnosis Same as "Discharge Diagnosis" noted below under Discharge Instructions. Discharge Data Procedures Performed Operation Date: 04/27/22 10:40 Actual Procedures p Right Knee Antibiotic Spacer Removal, Revision Total Knee Arthroplasty(Right) - Isaac Hughes MD Ordered Studies 04/27/22 05:00 US - OR guided needle placemen Routine Hospital Course (1) Infection of total right knee replacement: Admitted on 04/27/2022 after elective removal of antibiotic spacer and revision TKR. Did well with surgery and had no post operative complications. He was discharged home with home health on POD 1. PG Care Time/CCT Total # of Minutes Spent Total Time Spent with Patient: Total time spent is greater than 50% in coordination of care (as documented) at patient's floor/unit and/or counseling patient: Discharge Plan Discharge Items Patient Disposition: Home - Home Health Services Reason For Visit: Infection Right Total Knee Replacement Discharge Diagnosis: Right Knee Revision TKR Activity: Per Instructions section Weightbearing: Full weightbearing Non-emergency contact: Surgeon Call non-emergency contact if: you have any medication questions Follow-up/Referrals: Genna Moore MD [Primary Care Provider] - Diet: Carb Consistent or DM2 Addtl Attending Provider Instructions: ACTIVITY RECOMMENDATIONS: Physical Therapy: * You will go to physical therapy three times each week for four to six weeks after your surgery in order to regain your knee range of motion and to retrain your knee to work properly. * It is just as important to make sure you are getting your knee perfectly straight as it is to regain your knee bend. * Taking a pain pill an hour before therapy can help you have a more productive and comfortable therapy session. Home Exercise: * You were shown a series of exercises (heel props, heel slides, etc.) in the hospital. Do these exercises three to four times each day including the exercises you were shown in physical therapy. Walking: * Get up and walk several times each day. For the first four weeks, try not to stand or walk for more than one hour at a time. If you do stand or walk for more than one hour, you will not hurt anything, but your knee and leg will likely swell. * As you feel comfortable, you may change from the walker or crutches to a cane and then to independent walking. MEDICATIONS: New Medicine: * You will likely be taking one or more of these medications: 1. Oxycodone - A quick and shorter-acting pain medication. Take one to two tablets every six hours to lessen your pain. 2. Eliquis - Thins your blood to lessen the chance of forming a blood clot. 3. Cefadroxil - take twice a day to prevent infection * The most common side effects of pain medicine and iron are nausea and constipation. If nausea or constipation is too much of a problem or if you have any questions about your new medicines or doses, call [facility] at . We will try to help you manage these issues. "VERY IMPORTANT TO READ AND REVIEW" Pain: * The immediate post-operative period after knee replacement surgery is often quite painful. * You are given a prescription for pain medicine. You should take it, as directed, when you need it, especially before physical therapy and before going to bed. Pain that interferes with sleep is very common and can last several months. * You will likely need pain medicine for the first four to six weeks. It will not stop all of the pain. The pain will lessen and as you feel better, you may change to milder pain medicine such as Tylenol. * The most common side effects of pain medicine are nausea and constipation, so don't take more than you need. SPECIAL CARE INSTRUCTIONS: TEDs/Elastic Stockings: * The white elastic stockings help limit swelling and prevent blood clots from forming in your legs. The more you wear them, the more they work. * Wear them for six weeks after knee replacement surgery and four weeks after partial knee replacement. Incision Site Care: * Remove dressing postoperative day 2 and then shower. Keep direct shower pressure off the incision site. * After showering, cover zoila with dry gauze and change daily or more frequently if the dressing is getting saturated with drainage. * Use the PONCHO stockings to hold dressing in place. DO NOT apply tape on the skin. * May completely stop using bandage if wound is dry and no drainage * Zoila are removed between 2 and 3 weeks post-op. If your follow-up appointment is made before 2 weeks, please have your appointment re- scheduled. It is too early to remove the zoila. Prevention of Infection: * Take antibiotics one hour before any dental cleaning, dental work, urological procedure, gastrointestinal procedure or any invasive surgery in order to prevent your new joint from getting infected. * You may get the antibiotics from the doctor performing the procedure or you may call our office at [phone] before and we will call in a prescription to the pharmacy of your choice. Things to Watch For: * Drainage from the incision site that occurs more than one week after your surgery. * Severely increased knee/leg pain or swelling. * Increased redness at the incision site. * Fever above 102 degrees Fahrenheit. * Unusual chest pain or shortness of breath. * Unusual pain or burning with urination. Call [facility] at [phone] with any of the above problems or if you have any questions about your medicines or recovery. FOLLOW UP VISIT: Make an appointment to see your doctor for approximately two weeks after surgery for a progress check and staple removal by calling the office at [phone]. Pending Studies at Discharge: No Stand-Alone Forms: My [facility] [email or web address], Smoking Cessation Medications and DC Order Prescriptions: New cefadroxil 500 mg capsule 500 mg PO BID 30 Days Qty: 60 1RF Rx Instructions: Take to prevent infection Continued Eliquis 5 mg tablet 5 mg PO BID rosuvastatin [Crestor] 5 mg tablet 5 mg PO QAM oxycodone 15 mg tablet 15 mg PO HS PRN (Reason: pain) Rx Instructions: Post op medication (DME) OneTouch Verio test strips Strip See Rx Instructions .ROUTE .MEDSUPPLY Qty: 100 3RF Rx Instructions: As directed- test twice daily (DME) blood-glucose meter [OneTouch Verio Meter] [facility] See Rx Instructions .ROUTE .MEDSUPPLY Qty: 1 0RF Rx Instructions: As directed- test twice daily (DME) lancets [OneTouch UltraSoft Lancets] Mis See Rx Instructions .ROUTE .MEDSUPPLY Qty: 200 3RF Rx Instructions: As directed- test twice daily oxycodone 5 mg tablet 5 - 10 mg PO Q6 PRN (Reason: pain) Qty: 40 0RF Rx Instructions: Take as needed for Pain. ondansetron HCl 4 mg tablet 4 mg PO Q6 PRN (Reason: nausea) Qty: 20 1RF Rx Instructions: Post op medication acetaminophen 500 mg capsule 1,000 mg PO TID 30 Days Qty: 180 0RF Rx Instructions: Take 3 times per day to lessen pain. Post op medication tamsulosin [Flomax] 0.4 mg capsule 0.4 mg PO DAILY Qty: 7 0RF Rx Instructions: Begin night BEFORE surgery to prevent urinary retention sennosides-docusate sodium [Senokot-S] 8.6-50 mg tablet 1 tab-cap PO DAILY Qty: 14 0RF Rx Instructions: Take daily to prevent constipation. Post op medication (DME) pen needle, diabetic [BD Ultra-Fine Orig Pen Needle] 29 gauge x 1/2" needle See Rx Instructions .ROUTE .MEDSUPPLY Qty: 100 3RF Rx Instructions: USE ONE DAILY E11.65 Lantus Solostar U-100 Insulin 100 unit/mL (3 mL) insulin pen 40 unit subcut QAM pioglitazone [Actos] 45 mg tablet 45 mg PO QAM ezetimibe [Zetia] 10 mg tablet 10 mg PO QAM Imfinzi IV, DIRECTED Rx Instructions: Every 2 weeks. chemo IV med every 2 weeks Discharge Orders: Discharge Order (Routine); Ordered 04/28/22 Ordered By: Isaac Hughes Admission Data Admit Date/Time: 04/27/22 14:55 Attending Provider: Isaac Hughes Admit Provider: Isaac Hughes Primary Care Provider: Genna Moore Other Providers: [facility],Home Health Other Interventions: Discharge Summary Assessment (RN) Last Done: 04/28/22 13:59
== END 2022-04-28 14:50 | disposition home health service (06) ==
LOC: 3E 08:04 → ASU 08:04